=== PATIENT | female | born 1955 | race Caucasian/White ===

== ENCOUNTER 2021-08-07 09:40 | Outpatient (CLI) | payer OTHER, SELFPAY ==
[2021-08-07 11:28] LABS: Basophils Absolute Auto 0.1 K/mm3 (0.0-0.1); Basophils Percent Auto 0.8 % (0.2-1.2); Eosinophils Absolute Auto 0.1 K/mm3 (0-0.3); Eosinophils Percent Auto 1.6 % (0-4.4); Hematocrit 38.3 % (37.0-47.0); Immature Granulocyte Absolute 0.01 K/mm3 (0.00-0.031); Immature Granulocyte Percent A 0.2 % (0-0.5); Lymphocytes Absolute Auto 1.98 K/mm3 (0.9-3.2); Lymphocytes Percent Auto 31.5 % (18.3-44.2); Mean Corpuscular HGB Conc 33.9 g/dl (32-36); Mean Corpuscular Hemoglobin 31.3 pg (26-34); Mean Corpuscular Volume 92.1 fl (80-100); Mean Platelet Volume 9.3 fl (7.4-10.4); Monocytes Absolute Auto 0.7 K/mm3 (0.1-0.6); Monocytes Percent Auto 11.8 % (2.6-8.5); Neutrophils Absolute Auto 3.4 K/mm3 (1.3-6.7); Neutrophils Percent Auto 54.1 % (45.5-73.1); Platelet Count Result 229 k/mm3 (150-375); Red Blood Count 4.16 M/mm3 (4.2-5.4); Red Cell Distribution Width 14.2 % (11.5-14.5); White Blood Count 6.3 K/mm3 (4.5-10.0)
[2021-08-07 11:30] LABS: Add Urine Microscopic? NO; Appearance Urine Clear (Clear); Bilirubin Urine Negative (Negative); Blood Urine Negative (Negative); Color Urine Straw (Yellow); Glucose Urine UA Negative (Negative); Ketones Urine Negative (Negative); Leukocyte Esterase Ur Negative LEU/UL (Negative); Nitrate Urine Negative (Negative); Protein Urine Negative (Negative); Urobilinogen Urine Negative mg/dL (<2.0)
[2021-08-07 11:36] LABS: Specific Grav Ur 1.004 (1.001-1.035)
[2021-08-07 11:46] LABS: Anion Gap 7 mmol/L (8-16); Blood Urea Nitrogen 10 mg/dL (7-17); Calcium 10.1 mg/dL (8.4-10.2); Carbon Dioxide 31 mmol/L (22-30); Chloride 100 mmol/L (98-107); Estimated Glomerular Filt Rate > 60; Glucose 94 mg/dL (65-110); Hemoglobin A1C 5.1 % (<5.7); Potassium 4.1 mmol/L (3.4-5.0); Sodium 138 mmol/L (137-145)
[2021-08-07 11:50] LABS: Partial Thromboplastin Time 35.9 SECONDS (22.3-36.8)
[2021-08-07 11:55] LABS: INR 0.9; Prothrombin Time 12.5 Seconds (11.1-14.7)
[2021-08-07 12:32] LABS: Urine Cotinine NEGATIVE
== END 2021-08-07 09:41 | disposition home or self-care (01) ==
LOC: ANHSURGERY 09:45
PROVIDERS: PCP Emergency Medicine; Visit Provider Orthopaedic Surgery
DX: M16.12 Unilateral primary osteoarthritis, left hip (principal); Z01.818 Encounter for other preprocedural examination
CPT/HCPCS: 80048; 80307; 81003; 82040; 83036; 85025; 85610; 85730; 87081

== ENCOUNTER 2021-08-23 18:52 | Observation (INO) | payer OTHER, SELFPAY ==
[2021-08-07 10:26] VITALS: BP 163/73; PULSE 59; RESP 18; TEMP 36.7; O2SAT 100; BMI 25.2
--- NOTE | 2021-08-21 11:25 | WPDANESEPPF ---
Anes - Initial Pre Proc Eval Procedure: Operation Date: 08/22/21 07:30 Proposed Procedures p Left Total Hip Arthroplasty - Slim Joaquin MD Date/Time: 08/21/21 11:25 Surgeon: Slim Joaquin MD Pre Op Diagnosis: Left hip DJD Patient Data Age: 65 Gender: F Height: 1.56 m Weight: 61.7 kg Last Vital Signs Temp 36.7 C 08/07/21 10:26 Pulse 59 L 08/07/21 10:26 Resp 18 08/07/21 10:26 BP 163/73 H 08/07/21 10:26 Pulse Ox 100 08/07/21 10:26 Allergies Allergy/AdvReac Type Severity Reaction Status Date / Time aspirin AdvReac Intermediate CONTRAINDICATED Verified 08/22/21 06:18 R/T GASTRIC BYPASS ibuprofen AdvReac Intermediate nausea/PT Verified 08/22/21 06:18 STATES SHE GETS NO PAIN RELIEF Home Medications Medication Instructions Recorded Confirmed Type calcium carbonate 600 mg (1,500 1 tablet PO DAILY 06/07/21 08/22/21 History mg)-vitamin D3 400 unit tablet losartan 50 mg tablet 50 mg PO QAM 06/07/21 08/07/21 History xreeubiy-bcjkgkk-cxqf-iron 18 1 tablet PO DAILY 06/07/21 08/22/21 History mg-FA 400 mcg-vit K 25 mcg tablet omega 9-kfa-lns-fish oil 60 mg-90 1 cap PO DAILY 06/07/21 08/22/21 History mg-500 mg capsule chlorhexidine gluconate 4 % 1 applic TOPICAL DAILY #237 ml 06/13/21 08/07/21 Rx topical liquid acetaminophen [Tylenol Extra 500 mg PO Q6H PRN 08/07/21 08/07/21 History Strength] atorvastatin 40 mg PO DAILY 08/07/21 08/07/21 History cyanocobalamin (vitamin B-12) 500 mcg PO DAILY 08/07/21 08/22/21 History hydrocodone-acetaminophen 1 tablet PO BID 08/07/21 08/22/21 History pregabalin 75 mg PO BID 08/07/21 08/22/21 History Patient hx anesthesia problems: none Family hx anesthesia problems: none Results Review: All pre-operative results and documents have been reviewed as part of the pre-operative evaluation. 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 DJD (degenerative joint disease), lumbar History of stroke HTN (hypertension) Hyperlipidemia ERVIN (obstructive sleep apnea) Osteoarthritis Smoking Wears glasses Family History Family History Other Cerebrovascular accident Diabetes mellitus Family history of arthritis Family history of cardiovascular disease Family history of seizure disorder Hypertension Social History Social History Smoking packs per day: 1 Smoking cigarettes per day: 20.0 Years smoked: 50 Smoking pack-years: 50.00 Smoking status: Former smoker Tobacco type: cigarettes Smoking end date: 07/02/21 Alcohol intake: current Drinks per week: 8 Substance use: never Living arrangements: other Additional living arrangements comments: BOYFRIEND Spiritual care concerns: No Anes - Eval Final PreProcedure Day of Procedure 08/21/21 11:25 Patient weight: overweight Heart: regular rate and rhythm Lungs: clear to auscultation and normal air movement Airway: Mallampati scale class II Neurological: alert and oriented Last oral intake: >/= 8 hours ASA classification: III Emergent: no Anesthetic plan: proceed Anesthesia type and monitoring: general ETT Results Review: All pre-operative results and documents have been reviewed as part of the pre-operative evaluation. Informed Consent: The patient's anesthetic plan and its attendant risks and benefits were discussed with the patient/family/POA. Questions were solicited and answers provided to the satisfaction of the patient/family/POA.
[2021-08-22] VITALS (16 sets, daily range): BP systolic 112–150; BP diastolic 48–78; PULSE 40–89; RESP 10–20; TEMP 36.1–36.6; O2SAT 97–100; BMI 25.0
[2021-08-22] MEDS: LACTATED RINGERS 1,000 ML 30 ML IV CONT ×2 (06:55→10:40)
[2021-08-22] MEDS: TRANEXAMIC ACID 1,000MG/ISO100 1,000 MG/100 ML BAG 200 MG IVPB (06:57)
--- NOTE | 2021-08-22 07:25 | SUR.PREOP ---
0725- Notified Dr. Joaquin patient took [place] 7.5-325MG PO Tylenol at 0400, clarified giving 1000MG PO Tylenol in pre-op. Per Dr. Joaquin do not give 1000MG Tylenol, discontinue order.
--- NOTE | 2021-08-22 07:30 | SUR.PREOP ---
0730- Patient and spouse Albert notified procedure start time will be delayed. Patient and Albert verbalized understanding.
--- NOTE | 2021-08-22 07:41 | WPDHPUPDATE1 ---
History and Physical Update Update Date/Time: 08/22/21 07:41 History and Physical has been reviewed, including an updated exam of the patient. There are NO changes in the patient's condition. Risks, benefits, and alternatives have been discussed and questions answered. Patient agrees to proceed with procedure.
[2021-08-22] MEDS: ceFAZolin 2 GM/D5W 50 ML 2 GM/50 ML BAG IVPB ×3 (07:53→23:34)
[2021-08-22] MEDS: TRANEXAMIC ACID 1,000 MG/10 ML AMPUL 1000 MG IV PUSH (09:41)
--- NOTE | 2021-08-22 10:26 | W.PM.PROC2 ---
Procedure Note - Detailed Date of Procedure 08/22/21 Pre-op Diagnosis Left hip DJD Post-op Diagnosis same Procedure Performed L NILA Surgeon Slim Joaquin MD Anesthesia general Description of Procedure THE PATIENT WAS TAKEN TO THE OPERATING ROOM IN STABLE CONDITION AND WAS PLACED IN THE LATERAL DECUBITUS AND THE LEFT LOWER EXTREMITY WAS PREPPED AND DRAPED IN THE STERILE FASHION. INCISION WAS MADE IN THE POSTERIOR LATERAL SIDE OF THE HIP, DOWN TO THE FASCIA LAYER. THE FASCIA WAS INCISED. THE HIP WAS EXPOSED. THE SHORT EXTERNAL ROTATORS WERE EXPOSED. THE SCIATIC NERVE WAS IDENTIFIED AND VISUALIZED THROUGHOUT THE EXPOSURE AND CASE. INCISION WAS MADE THROUGH THE SHORT EXTERNAL ROTATORS AND THE CAPSULE OF THE HIP JOINT. THE HIP WAS DISLOCATED. AN OSTEOTOMY WAS MADE TO THE FEMORAL NECK ABOUT 1 CM PROXIMAL TO THE LESSER TROCHANTER. THE ACETABULUM WAS EXPOSED. THERE WAS SEVERE DJD SEEN. BEGINNING WITH A 44 REAMER THE ACETABULUM WAS REAMED TO 49 MM. A 50 MM TRIAL WAS PLACED IN 35 DEG OF ABDUCTION AND ANTEVERSION WAS IN ALIGNMENT WITH THE TRANS ACETABULAR LIGAMENT. THE FIT WAS EXCELLENT. THE TRIAL WAS REMOVED. A 50 MM BIOMET G7 COMPONENT WAS THEN TAPPED IN TO PLACE IN 35 DEG OF ABDUCTION AND ANTEVERSION IN ALIGNMENT WITH THE TRANSVERSE ACETABULAR LIGAMENT. THE FIT WAS EXCELLENT. THE ACETABULAR LINER WAS PLACED AND CHECKED FOR STABILITY. NEXT THE FEMUR WAS PREPARED WITH INITIAL CANAL FINDER THEN SEQUENTIAL BROACHING WITH A TAPERLOC HIP SYSTEM, UNTIL A 11 BROACH FIT WELL IN 15 OF ANTEVERSION. A -3 HIGH OFFSET NECK WITH 36 MM HEAD TRIAL WAS PLACED. THE SHUCK TEST WAS EXCELLENT AND THE STABILITY IN FLEXION AND ROTATION WAS EXCELLENT. LEG LENGTHS WERE GROSSLY EQUAL. TRIALS WERE REMOVED. A BIOMET TAPERLOC 11 STEM WAS PLACED WITH A HIGH OFFSET NECK THE FIT WAS EXCELLENT IN 15 DEG OF ANTEVERSION. A -3 CERAMIC 36 MM FEMORAL CERAMIC HEAD WAS PLACED. THE HIP WAS TRIALED AND THE STABILITY WAS EXCELLENT WERE THE LEG LENGTHS AND THE SHUCK TEST. THE WOUND WAS IRRIGATED WITH STERILE BETADINE AND WATER FOR 3 MIN. THEN WASHED AGAIN. THE CAPSULE AND THE EXTERNAL ROTATORS WERE APPROXIMATED WITH NUMBER 1 VICRYL. THE FASCIA WITH No 2 QUIL AND THE SUB CUTANEOUS LAYER WITH 2-0 ABSORBABLE SUTURE WITH A RUNNING 3-0 SUBCUTICULAR LAYER WELL. DERMABOND WAS PLACED AND STERILE DRESSING WAS APPLIED. PATIENT WAS PLACED BACK ON TO THE SUPINE POSITION AND WAS EXTUBATED Estimated Blood Loss 450 Complications No immediate complications Condition stable Disposition PACU
[2021-08-22] MEDS: fentaNYL CITRATE INJ (*CRX) 100 MCG/2 ML VIAL 25 MCG IV PUSH ×4 (11:09→11:27)
--- NOTE | 2021-08-22 11:50 | WPDANESPNB ---
Anes - Peripheral Nerve Block Date/Time: 08/22/21 11:50 I have discussed with the patient/family/POA the placement of a peripheral nerve block for post-operative pain management, including associated risks, benefits, complications, and side effects. Alternative methods of post-operative analgesia were detailed. Questions were solicited and answers provided to the satisfaction of the patient/family/POA. Time-Out: A pre-procedural Time-Out was completed immediately before starting the procedure and confirmed: Patient Identification, Site, Procedure, Patient Position and the Availability of Requisite Equipment. Clinical Indications: Acute post-operative pain management requested by the operative surgeon. Nerve Block Insertion Note Anes-nerve block: other (left L4 sade block) Patient position: supine Skin prep: chlorhexidine Needle: 22 gauge, stimulating, insulated echogenic needle. Needle length: 80 mm Technique: ultrasound Technique comment: in plane Injectate: bupivacaine 0.25% with epi 5 mcg/ml (30cc) Observations: tolerated well Complications: none Procedure start time:: 1140 Procedure end time:: 1145
--- NOTE | 2021-08-22 12:50 | PHAR ---
Spoke with Dr. Joaquin - suggested changing ASA 650mg daily to 81mg BID due to history of gastric bypass surgery. Also discussed changing Pepcid to Protonix for increased GI protection. Provider approved changes
[2021-08-22] MEDS: MORPHINE SULFATE (*CRX) 4 MG/ML INJ 3 MG IV PUSH ×3 (14:49→23:30)
[2021-08-22] MEDS: PANTOPRAZOLE 40 MG TABLET PO (18:41)
[2021-08-22] MEDS: ASPIRIN 81 MG ENTERIC TABLET PO (18:42)
[2021-08-22] MEDS: PREGABALIN (*CRX) 75 MG CAPSULE PO (18:43)
[2021-08-22] MEDS: HYDROcodone/acetaminophen (*CRX) 7.5-325 MG TABLET 1 TAB PO (20:55)
[2021-08-22] MEDS: DOCUSATE SODIUM 100 MG CAPSULE PO (21:31)
[2021-08-22] MEDS: NALOXONE HCL 0.4 MG/ML VIAL 0.1 MG IV PUSH (23:57)
[2021-08-23] VITALS (11 sets, daily range): BP systolic 96–127; BP diastolic 40–60; PULSE 63–83; RESP 12–20; TEMP 36.1–36.9; O2SAT 97–100
--- NOTE | ~2021-08-23 | XR_ITS ---
EXAMINATION: XR hip LT 1V DATE: 08/22/2021 10:56 INDICATION: Total left hip arthroplasty. Postop. TECHNIQUE: A single view of left hip was obtained. COMPARISON: Pelvis and hip radiographs 06/07/2021 FINDINGS: There is a total left hip arthroplasty in near-anatomic alignment. No fracture. There is ga s in the soft tissues, consistent with recent surgery. IMPRESSION: 1. Total left hip arthroplasty in near-anatomic alignment. Reviewed, dictated and finalized at location A.
--- NOTE | 2021-08-23 00:10 | PC.NURSE ---
pt given morphine 2330, requested bathroom 15 minutes later. Pt ambulated to bathroom w/o difficulty, when standing from toilet pt became dizzy and weak and sat back on the toilet, pt attempted to stand after resting a couple of minutes and became dizzy again and experienced a near syncopal episode but did not lose consciousness. when returned pt to bed using peter steady pt lost consciousness at bedside. pt was responsive moments later and put back in bed. Narcan given when pt returned to bed. BP 96/40 HR 68 post narcan infusion, pt more alert at this time.
[2021-08-23] MEDS: HYDROcodone/acetaminophen (*CRX) 7.5-325 MG TABLET 1 TAB PO ×4 (01:13→21:39)
--- NOTE | 2021-08-23 04:28 | PC.NURSE ---
Addendum entered by Esau Arevalo RN 08/23/21 05:44: Pt sleeping at time of pain reassessment, will check BP if pt requests additional pain med or at next vitals interval Original Note: Pt c/o pain about 5 , current BP 97/52. Pt educated on safe narcotic use and states she would like to wait a little bit and recheck BP before taking PRN norco. Pt requests Tylenol, will recheck BP at 1 hour pain reassessment.
[2021-08-23] MEDS: ACETAMINOPHEN 325 MG TABLET 650 MG PO (04:32)
[2021-08-23 05:14] LABS: Basophils Percent Auto 0.6 % (0.2-1.2); Eosinophils Percent Auto 0.4 % (0-4.4); Hematocrit 24.9 % (37.0-47.0); Hemoglobin 8.2 g/dL (12.0-15.0); Immature Granulocyte Absolute 0.02 K/mm3 (0.00-0.031); Immature Granulocyte Percent A 0.3 % (0-0.5); Lymphocytes Absolute Auto 1.66 K/mm3 (0.9-3.2); Lymphocytes Percent Auto 23.3 % (18.3-44.2); Mean Corpuscular HGB Conc 32.9 g/dl (32-36); Mean Corpuscular Hemoglobin 31.7 pg (26-34); Mean Corpuscular Volume 96.1 fl (80-100); Mean Platelet Volume 10.1 fl (7.4-10.4); Monocytes Absolute Auto 0.9 K/mm3 (0.1-0.6); Monocytes Percent Auto 13.1 % (2.6-8.5); Neutrophils Absolute Auto 4.4 K/mm3 (1.3-6.7); Neutrophils Percent Auto 62.3 % (45.5-73.1); Platelet Count Result 156 k/mm3 (150-375); Red Blood Count 2.59 M/mm3 (4.2-5.4); Red Cell Distribution Width 14.2 % (11.5-14.5); White Blood Count 7.1 K/mm3 (4.5-10.0)
[2021-08-23 05:22] LABS: Anion Gap 3 mmol/L (8-16); Blood Urea Nitrogen 11 mg/dL (7-17); Calcium 8.8 mg/dL (8.4-10.2); Carbon Dioxide 30 mmol/L (22-30); Chloride 97 mmol/L (98-107); Estimated CRCL calculation 73 ml/min; Estimated Glomerular Filt Rate > 60; Glucose 89 mg/dL (65-110); Potassium 3.8 mmol/L (3.4-5.0); Sodium 130 mmol/L (137-145)
[2021-08-23] MEDS: THERAPEUTIC MULTIVITAMINS/MINERALS TAB (*BKC) 1 TABLET PO (08:52)
[2021-08-23] MEDS: CELECOXIB 200 MG CAPSULE PO (08:52)
[2021-08-23] MEDS: ASPIRIN 81 MG ENTERIC TABLET PO ×2 (08:52→16:30)
[2021-08-23] MEDS: CYANOCOBALAMIN 500 MCG TABLET PO (08:52)
[2021-08-23] MEDS: ceFAZolin 2 GM/D5W 50 ML 2 GM/50 ML BAG IVPB (08:52)
[2021-08-23] MEDS: ATORVASTATIN 40 MG TABLET PO (08:52)
[2021-08-23] MEDS: DOCUSATE SODIUM 100 MG CAPSULE PO ×2 (08:52→20:58)
[2021-08-23] MEDS: PREGABALIN (*CRX) 75 MG CAPSULE PO ×2 (08:59→16:30)
[2021-08-23] MEDS: PANTOPRAZOLE 40 MG TABLET PO (09:42)
--- NOTE | 2021-08-23 12:47 | PM.PNORT ---
Progress Note: A&P Assessment and Plan (1) S/P total hip arthroplasty: Qualifiers: Laterality: left Qualified Code(s): Z96.642 - Presence of left artificial hip joint Code(s): Z96.649 - Presence of unspecified artificial hip joint Status: Acute Assessment and Plan: POD #1: Left NILA Continue PT/OT. WBAT. Walker. HIGH FALL RISK. Contine pain control. Ice lateral hip. DVT prophylaxis. SCDs. Incentive spirometry. Monitor dressing. Change prior to discharge. Dispo: Home with Home Health pending progress with PT/OT. Subjective Subjective Date/Time Seen: 08/23/21 12:47 Post Op day: 1 Principal diagnosis: Left Hip DJD Interval history: POD #1: Left NILA Slow progress with PT/OT. Moderate pain. Review of Systems Constitutional: Constitutional: Denies chills, Denies fatigue, Denies fever(s), Denies night sweats and Denies weakness Cardiovascular: Cardiovascular: Denies chest pain, Denies lightheadedness, Denies palpitations and Denies dyspnea Respiratory: Respiratory: Denies cough, Denies dyspnea and Denies wheezing Gastrointestinal: Gastrointestinal: Denies abdominal pain, Denies diarrhea, Denies nausea and Denies vomiting Musculoskeletal: Musculoskeletal: Reports arthralgias (left hip ), Reports joint swelling (left hip ) and Denies numbness Neurologic: Denies numbness and Denies weakness Endocrine: Endocrine: Denies fatigue and Denies palpitations Allergic/Immunologic: Allergic/Immunologic: Denies wheezing Exam Const: General: comfortable and no acute distress Resp: Effort & Inspection: normal respiratory effort Cardio: Rate: regular rate Rhythm: regular rhythm GI: Inspection: non-distended Skin: General skin exam: normal color Wounds: wounds noted (incision left hip C/D/I ) Extrem: Right lower extremity: normal to inspection, full ROM and normal capillary refill Left lower extremity: hip/thigh Details: tenderness Location: of the hip Location: laterally and anteriorly, swelling (thigh soft ) Location: of the hip (lateral. ), abnormal ROM (limitations with internal/external rotation and flexion/extension due to recent surgical intervention ) and other (incision lateral hip c/d/i. ), knee Details: normal to inspection and normal ROM; no tenderness and no swelling, lower leg (Negative Gustavo's Sign ) Details: no edema, ankle (+ ankle plantarflexion/inversion. Weakness with eversion/dorsiflexion. ) Details: normal to inspection, no edema and normal ROM; no tenderness, no swelling and no warmth and foot Details: normal capillary refill, toes with normal ROM, vascular exam Details: dorsalis pedis pulse present and motor-sensory exam light-touch normal in all toes; no tenderness, no ecchymosis and no crepitus Psych: Mental Status: mental status grossly normal Affect: normal affect Objective Data Vital Signs Vital Signs: Vital Signs - 24 hr 08/22/21 13:00 08/22/21 14:00 08/22/21 16:21 Temperature 36.2 C L 36.6 C Pulse Rate 62 88 Respiratory Rate 16 16 Blood Pressure 138/67 127/71 Pulse Oximetry 100 100 98 08/22/21 18:06 08/22/21 20:58 08/23/21 00:17 Temperature 36.4 C L 36.6 C 36.1 C L Pulse Rate 64 69 63 Respiratory Rate 18 20 20 Blood Pressure 145/68 H 121/48 L 96/40 L Pulse Oximetry 100 100 97 08/23/21 01:12 08/23/21 02:01 08/23/21 02:13 Temperature 36.6 C 36.7 C Pulse Rate 76 77 Respiratory Rate 20 20 12 Blood Pressure 104/60 98/52 L Pulse Oximetry 100 100 08/23/21 04:27 08/23/21 08:56 08/23/21 10:45 Temperature 36.5 C 36.9 C Pulse Rate 74 83 74 Respiratory Rate 20 16 Blood Pressure 97/52 L 110/50 L 108/48 L Pulse Oximetry 98 97 99 Intake/Output Intake/Output: Intake & Output 08/20/21 08/21/21 08/22/21 08/23/21 23:59 23:59 23:59 23:59 Intake Total 1770 630 Output Total 1000 600 Balance 770 30 Meds/Results Medications: Active Medications Generic Name Dose Route Start Last Admin Trade Name Freq PRN Reaso
[2021-08-24] MEDS: HYDROcodone/acetaminophen (*CRX) 7.5-325 MG TABLET 1 TAB PO ×3 (02:42→21:35)
[2021-08-24 04:13] VITALS: BP 118/51; PULSE 60; RESP 16; TEMP 36.7; O2SAT 96
[2021-08-24 05:32] LABS: Hematocrit 26.2 % (37.0-47.0); Hemoglobin 8.6 g/dL (12.0-15.0); Mean Corpuscular HGB Conc 32.8 g/dl (32-36); Mean Corpuscular Hemoglobin 31.7 pg (26-34); Mean Corpuscular Volume 96.7 fl (80-100); Mean Platelet Volume 10.2 fl (7.4-10.4); Platelet Count Result 172 k/mm3 (150-375); Red Blood Count 2.71 M/mm3 (4.2-5.4); Red Cell Distribution Width 14.3 % (11.5-14.5)
[2021-08-24 05:57] LABS: Blood Urea Nitrogen 8 mg/dL (7-17); Calcium 9.3 mg/dL (8.4-10.2); Carbon Dioxide 29 mmol/L (22-30); Chloride 102 mmol/L (98-107); Estimated CRCL calculation 89 ml/min; Estimated Glomerular Filt Rate > 60; Glucose 92 mg/dL (65-110)
[2021-08-24 06:14] VITALS: BP 110/42; PULSE 86; RESP 16; TEMP 37.3; O2SAT 99
[2021-08-24 07:07] LABS: Anion Gap 4 mmol/L (8-16); Potassium 4.6 mmol/L (3.4-5.0); Sodium 135 mmol/L (137-145)
--- NOTE | 2021-08-24 08:28 | PM.PNORT ---
Progress Note: A&P Assessment and Plan (1) S/P total hip arthroplasty: Qualifiers: Laterality: left Qualified Code(s): Z96.642 - Presence of left artificial hip joint Code(s): Z96.649 - Presence of unspecified artificial hip joint Status: Acute Assessment and Plan: POD #2: Left NILA Continue PT/OT. WBAT. Walker. HIGH FALL RISK. Contine pain control. Ice lateral hip. DVT prophylaxis. SCDs. Incentive spirometry. Monitor dressing. Change prior to discharge. Dispo: Home with Home Health pending progress with PT/OT and medical clearance. (2) Increased urine output: Code(s): R35.89 - Other polyuria Status: Acute Assessment and Plan: Patient with increased urine output over the last 24 hours. 8,900 mL output vs 3,240.00 mL intake over the 24 hour period. Hospitalist consult and labs this AM. Appreciate recommendations. Subjective Subjective Date/Time Seen: 08/24/21 08:28 Post Op day: 2 Interval history: POD #2: Left NILA Improvement with PT/OT. Increased urine output overnight. Hospitalist service consulted. Pain control improved. Review of Systems Constitutional: Constitutional: Denies chills, Denies fatigue, Denies fever(s), Denies night sweats and Denies weakness Cardiovascular: Cardiovascular: Denies chest pain, Denies lightheadedness, Denies palpitations and Denies dyspnea Respiratory: Respiratory: Denies cough, Denies dyspnea and Denies wheezing Gastrointestinal: Gastrointestinal: Denies abdominal pain, Denies diarrhea, Denies nausea and Denies vomiting Genitourinary: Genitourinary: Reports as per HPI and Reports nocturia Musculoskeletal: Musculoskeletal: Reports arthralgias (left hip ), Reports joint swelling (left hip ) and Denies numbness Neurologic: Denies numbness and Denies weakness Endocrine: Endocrine: Denies fatigue and Denies palpitations Allergic/Immunologic: Allergic/Immunologic: Denies wheezing Exam Const: General: comfortable and no acute distress Resp: Effort & Inspection: normal respiratory effort Cardio: Rate: regular rate GI: Inspection: non-distended GI Palp: Yes Soft to palpation and No Tenderness to palpation present (GI) Skin: General skin exam: normal color Wounds: wounds noted (incision left hip C/D/I ) Extrem: Left lower extremity: hip/thigh Details: tenderness Location: of the hip Location: laterally and anteriorly, swelling (thigh soft ) Location: of the hip (lateral. ), abnormal ROM (limitations with internal/external rotation and flexion/extension due to recent surgical intervention ), ecchymosis (Lateral surrounding incision, no evidence of hematoma. ) and other (incision lateral hip c/d/i. ), knee Details: normal to inspection and normal ROM; no tenderness and no swelling, lower leg (Negative Gustavo's Sign ) Details: no edema, ankle (+ ankle plantarflexion/inversion. Weakness with eversion/dorsiflexion. ) Details: normal to inspection, no edema and normal ROM; no tenderness, no swelling and no warmth and foot Details: normal capillary refill, toes with normal ROM, vascular exam Details: dorsalis pedis pulse present and motor-sensory exam light-touch normal in all toes; no tenderness, no ecchymosis and no crepitus Psych: Mental Status: mental status grossly normal Affect: normal affect Objective Data Vital Signs Vital Signs: Vital Signs - 24 hr 08/23/21 08:56 08/23/21 10:45 08/23/21 13:55 Temperature 36.9 C 36.6 C Pulse Rate 83 74 70 Respiratory Rate 16 16 Blood Pressure 110/50 L 108/48 L 123/59 L Pulse Oximetry 97 99 100 08/23/21 18:03 08/23/21 20:18 08/23/21 21:15 Temperature 36.9 C 36.9 C Pulse Rate 69 70 71 Respiratory Rate 16 16 16 Blood Pressure 115/50 L 127/46 L Pulse Oximetry 100 98 98 08/24/21 04:13 08/24/21 06:14 Temperature 36.7 C 37.3 C Pulse Rate 60 86 Respiratory Rate 16 16 Blood Pressure 118/51 L 110/42 L Pulse Oximetry 96 99 Intake/Output Intake/Output: Intake & Outpu
[2021-08-24] MEDS: PANTOPRAZOLE 40 MG TABLET PO (09:31)
[2021-08-24] MEDS: PREGABALIN (*CRX) 75 MG CAPSULE PO ×2 (09:31→17:50)
[2021-08-24] MEDS: CELECOXIB 200 MG CAPSULE PO (09:31)
[2021-08-24] MEDS: CYANOCOBALAMIN 500 MCG TABLET PO (09:31)
[2021-08-24] MEDS: LOSARTAN POTASSIUM 50 MG TABLET PO (09:31)
[2021-08-24] MEDS: ATORVASTATIN 40 MG TABLET PO (09:31)
[2021-08-24] MEDS: THERAPEUTIC MULTIVITAMINS/MINERALS TAB (*BKC) 1 TABLET PO (09:32)
[2021-08-24] MEDS: DOCUSATE SODIUM 100 MG CAPSULE PO ×2 (09:32→21:34)
[2021-08-24] MEDS: ASPIRIN 81 MG ENTERIC TABLET PO ×2 (09:32→17:50)
[2021-08-24 11:41] LABS: Add Urine Microscopic? YES; Appearance Urine Cloudy (Clear); Bilirubin Urine Negative (Negative); Blood Urine Negative (Negative); Color Urine Yellow (Yellow); Glucose Urine UA Negative (Negative); Ketones Urine Negative (Negative); Leukocyte Esterase Ur Negative LEU/UL (Negative); Mucus Urine Rare /lpf; Nitrate Urine Negative (Negative); Protein Urine Negative (Negative); RBC Urine 0-2 /hpf (0-2); Specific Grav Ur 1.009 (1.001-1.035); Squamous Epithelial Cell Urine Few /hpf (Few); WBC Urine 0-3 /hpf
--- NOTE | 2021-08-24 12:42 | PM.IMCN ---
Assessment and Plan Assessment and plan (1) Increased urine output: Code(s): R35.89 - Other polyuria Status: Acute Assessment and Plan: The cause could be secondary to reaction to anesthesia, there has been some study showing that sevoflurane anesthesia could cause Diabetes Insipitus after use vs Diabetes insiptius but the patient does not have any of the symptoms that is usually associated with this condition as well as stable sodium and other electrolytes as well as blood pressure given a 9 liter volume loss vs UTI and her Urinalysis is unremarkable vs fluid overload or increased fluid intake during surgery and PO intake. Will check urine electrolytes Sodium, Osmolality and Creatinine Recheck BMP in the morning and electrolytes Will monitor BP Strict Intake and Output for accuracy Continue monitoring. Currently she appears to be stable without any concerns or issues. (2) S/P total hip arthroplasty: Qualifiers: Laterality: left Qualified Code(s): Z96.642 - Presence of left artificial hip joint Code(s): Z96.649 - Presence of unspecified artificial hip joint Status: Acute Assessment and Plan: Post OP day #2, per Ortho (3) HTN (hypertension): Code(s): I10 - Essential (primary) hypertension Status: Acute Assessment and Plan: BP stable 110/42. Continue on her home Losartan. (4) Hyperlipidemia: Code(s): E78.5 - Hyperlipidemia, unspecified Status: Acute Assessment and Plan: Continue statin (5) Abnormal urinalysis: Code(s): R82.90 - Unspecified abnormal findings in urine Status: Acute Assessment and Plan: with 4 Urobilinogen. Will check LFTs. Shows history of fatty liver disease. patient states she drinks 4-6 beers once per week. Denies history of cirrhosis or other liver issues. Continue monitoring HPI Data of Consult Consult date: 08/24/21 Requesting Physician: Slim Joaquin MD Primary Care Provider: Rene Osborne MD Consult Narrative Narrative: Gayathri Kim is a 65 year old female with a history of gastric bypass surgery, hypertension, hyperlipidemia, fatty liver disease, who presented who was admitted after having her left total hip arthroplasty completed by Dr. Joaquin on 08/22/2021. The patient tolerated procedure well and was brought up to the floor for recovery. The nursing staff had been collecting her urine and notice she was peeing more frequently and in large quantities. They have recorded her urine output as a 1950 cc of urine in the last 24 hours. I received a consultation from the training development specialist for frequent urination. She states she is only having some minimal discomfort to her hip and becomes worse after working with therapy. She has hopes to be going home to continue therapy. The patient states she has been urinating more than normal. She denies any other urinary symptoms of dysuria, odor to her urine, dark urine, difficulty urinating, or the feeling of not emptying her bladder. She denies any nausea, vomiting, abdominal distention, bloating. She does not have any increased thirst, denies drinking excessive water, taking any diuretic pills, fatigue, weakness, dry mouth, bedwetting, feeling dehydrated, lightheadedness, dizziness, confusion, or any other symptoms. She denies any chest pain, shortness of breath, cough, leg swelling, calf pain, or any other symptoms at this time. 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
[2021-08-24 14:00] VITALS: BP 102/56; PULSE 85; RESP 16; TEMP 36.2; O2SAT 97
[2021-08-24 15:00] LABS: Alanine Aminotransferase 18 U/L (4-35); Albumin Level 3.2 g/dL (3.5-5.1); Alkaline Phosphatase 60 U/L (38-126); Aspartate Amino Transferase 38 U/L (14-36); Bilirubin,Total 0.3 mg/dL (0.2-1.3)
[2021-08-24 15:49] LABS: Sodium Urine Random 17 meq/L
[2021-08-24 19:53] VITALS: PULSE 74; RESP 16; O2SAT 97
[2021-08-24 21:18] VITALS: BP 115/41; PULSE 78; RESP 16; TEMP 36.6; O2SAT 97
[2021-08-25 05:34] VITALS: BP 111/49; PULSE 65; RESP 16; TEMP 36.7; O2SAT 100
[2021-08-25] MEDS: HYDROcodone/acetaminophen (*CRX) 7.5-325 MG TABLET 1 TAB PO ×2 (05:35→10:05)
[2021-08-25 05:41] LABS: Hematocrit 25.9 % (37.0-47.0); Hemoglobin 8.3 g/dL (12.0-15.0)
[2021-08-25 06:12] LABS: Alanine Aminotransferase 17 U/L (4-35); Albumin Level 3.3 g/dL (3.5-5.1); Alkaline Phosphatase 70 U/L (38-126); Anion Gap 4 mmol/L (8-16); Aspartate Amino Transferase 41 U/L (14-36); Bilirubin,Total 0.5 mg/dL (0.2-1.3); Blood Urea Nitrogen 7 mg/dL (7-17); Calcium 8.8 mg/dL (8.4-10.2); Carbon Dioxide 29 mmol/L (22-30); Chloride 103 mmol/L (98-107); Estimated CRCL calculation 89 ml/min; Estimated Glomerular Filt Rate > 60; Glucose 92 mg/dL (65-110); Potassium 3.7 mmol/L (3.4-5.0); Sodium 136 mmol/L (137-145)
[2021-08-25] MEDS: PANTOPRAZOLE 40 MG TABLET PO (08:02)
[2021-08-25] MEDS: THERAPEUTIC MULTIVITAMINS/MINERALS TAB (*BKC) 1 TABLET PO (08:02)
[2021-08-25] MEDS: LOSARTAN POTASSIUM 50 MG TABLET PO (08:02)
[2021-08-25] MEDS: CELECOXIB 200 MG CAPSULE PO (08:02)
[2021-08-25] MEDS: CYANOCOBALAMIN 500 MCG TABLET PO (08:02)
[2021-08-25] MEDS: PREGABALIN (*CRX) 75 MG CAPSULE PO (08:03)
[2021-08-25] MEDS: ATORVASTATIN 40 MG TABLET PO (08:03)
[2021-08-25] MEDS: ASPIRIN 81 MG ENTERIC TABLET PO (08:03)
[2021-08-25] MEDS: DOCUSATE SODIUM 100 MG CAPSULE PO (08:05)
--- NOTE | 2021-08-25 09:35 | PM.IMPN ---
Progress Note: A&P Assessment and Plan (1) Increased urine output: Code(s): R35.89 - Other polyuria Status: Acute Assessment and Plan: The cause could be secondary to reaction to anesthesia, there has been some study showing that sevoflurane anesthesia could cause Diabetes Insipidus after use vs Diabetes insipidus but the patient does not have any of the symptoms that is usually associated with this condition as well as stable sodium and other electrolytes as well as blood pressure given a 9 liter volume loss vs UTI and her Urinalysis is unremarkable vs fluid overload or increased fluid intake during surgery and PO intake. Urine electrolytes Sodium 17, Osmolality pending and Creatinine 61. Serum Sodium was 136, improved from yesterday and other electromytes and renal function normal BP otherwise stable. She is feeling well at this time, and reports normal urination today. believe this could have been secondary to anesthesia reaction vs miscalculation. If she has any further issues she will need to follow up with her PCP in 1 week. She understands and agrees with the plan. All questions answered. (2) S/P total hip arthroplasty: Qualifiers: Laterality: left Qualified Code(s): Z96.642 - Presence of left artificial hip joint Code(s): Z96.649 - Presence of unspecified artificial hip joint Status: Acute Assessment and Plan: Post OP day #3, per Ortho (3) HTN (hypertension): Code(s): I10 - Essential (primary) hypertension Status: Acute Assessment and Plan: BP stable 111/49 Continue on her home Losartan. (4) Hyperlipidemia: Code(s): E78.5 - Hyperlipidemia, unspecified Status: Acute Assessment and Plan: Continue statin (5) Abnormal urinalysis: Code(s): R82.90 - Unspecified abnormal findings in urine Status: Acute Assessment and Plan: with 4 Urobilinogen. Shows history of fatty liver disease. patient states she drinks 4-6 beers once per week. Denies history of cirrhosis or other liver issues. LFTs are normal other than slight elevated of AST 41. Stable. No signs of infection. Follow up with PCP due to Urobilinogen in urine Time Spent With Patient Time with patient: 25 - 35 minutes Subjective Date/time seen: 08/25/21 09:35 Interval history: Date of Service 08/25/21: The patient states she is feeling well. States her urination is back to normal today. She denies any other urinary symptoms. She is just having some pain after walking with therapy. She otherwise denies chest pain, SOB, cough, fever, chills, nausea, vomiting, abd pain or any other symptoms at this time. Review of Systems Review of Systems: All systems reviewed & are unremarkable except as noted in HPI and below Exam Narrative: General: 65-year-old woman sitting up in the chair after walking with therapy. Appears comfortable. In no acute distress. Skin: No jaundice or cyanosis. Good skin turgor. Neck: Full range of motion. Supple. Respiratory: Lungs are clear to auscultation bilaterally. No bony chest wall tenderness. Cardiovascular: The heart has a regular rate and rhythm without murmur. Gastrointestinal: The abdomen is soft, nontender and nondistended with active bowel sounds. Psychiatric: Lucid and oriented. Memory intact. Neurologic: No focal deficits. Speech is clear. No facial drooping. Objective Data Vital Signs Vital Signs: Vital Signs - 24 hr 08/24/21 14:00 08/24/21 19:53 08/24/21 21:18 Temperature 97.2 F L 97.8 F Pulse Rate 85 74 78 Respiratory Rate 16 16 16 Blood Pressure 102/56 L 115/41 L Pulse Oximetry 97 97 97 08/25/21 05:34 Temperature 98.1 F Pulse Rate 65 Respiratory Rate 16 Blood Pressure 111/49 L Pulse Oximetry 100 Intake/Output Intake/Output: Intake & Output 08/22/21 08/23/21 08/24/21 08/25/21 23:59 23:59 23:59 23:59 Intake Total 1770 2360 4100 1720 Output Total 1000
[2021-08-28 03:55] LABS: Osmolality, Urine 231 mOsm/kg (50-1200)
--- NOTE | 2021-09-13 13:26 | PM.DS ---
DS: Admitting Diagnosis Discharge Date 08/25/21 Admitting Diagnosis Left total hip arthroplasty DS: Discharge Diagnosis Discharge Diagnosis (1) S/P total hip arthroplasty: Qualifiers: Laterality: left Qualified Code(s): Z96.642 - Presence of left artificial hip joint Code(s): Z96.649 - Presence of unspecified artificial hip joint Status: Acute Assessment and Plan: POD #3: Left NILA Continue PT/OT. WBAT. Walker. HIGH FALL RISK. Contine pain control. Ice lateral hip. DVT prophylaxis. SCDs. Incentive spirometry. Monitor dressing. Change prior to discharge. Dispo: Home with Home Health pending progress with PT/OT and medical clearance. (2) Increased urine output: Code(s): R35.89 - Other polyuria Status: Acute Assessment and Plan: Patient had excessive amount of urine output on postop day 1. Hospitalist service consulted. The cause is thought to be secondary to reaction to anesthesia. The patient has no symptoms of diabetes insipidus. Her sodium levels remain stable as well as other electrolytes and her blood pressure is stable despite a reported 9 liter volume loss. Her sodium is 136 today. BP has remained stable. Patient reported normalization of urination. Hospitalist service believes this could been secondary to anesthesia reaction verses a miscalculation from nursing staff. She was instructed to follow-up with her PCP in 1 week. DS: Summary Hospital Course Reason for hospitalization: left total hip arthroplasty Hospital Course: 65-year-old female was admitted status post left total hip arthroplasty for postoperative medical management, pain control and mobilization with physical and occupational therapy. Patient had an incidence of increased urine output postoperatively. She had an over 9 L volume output reported. The hospitalist service was consulted for guidance with treatment. Her creatinine, sodium and blood pressures remained stable. On postop day 3 it was believed that the extreme output could be related to any anesthesia reaction versus miscalculations. In regard to pain, the patient progressed well. Her pain was well controlled. She did well with ambulation with a walker. She was put on anticoagulation for DVT prophylaxis prior to discharge. She was deemed safe to be discharged home with home health. She was instructed by the hospitalist service to follow with her primary care provider in 1 week due to urine output complaints while inpatient. Status at Discharge Functional status at discharge: uses cane/walker Overall status at discharge: patient is progressing back to baseline Time Spent with Patient Time attestation: Total time spent providing and/or coordinating discharge services: Exam Const: General: comfortable and no acute distress Resp: Effort & Inspection: normal respiratory effort Cardio: Rate: regular rate GI: Inspection: non-distended GI Palp: Yes Soft to palpation and No Tenderness to palpation present (GI) Skin: General skin exam: normal color Wounds: wounds noted (incision left hip C/D/I ) Extrem: Left lower extremity: hip/thigh Details: tenderness Location: of the hip Location: laterally and anteriorly, swelling (thigh soft ) Location: of the hip (lateral. ), abnormal ROM (limitations with internal/external rotation and flexion/extension due to recent surgical intervention ), ecchymosis (Lateral surrounding incision, no evidence of hematoma. ) and other (incision lateral hip c/d/i. ), knee Details: normal to inspection and normal ROM; no tenderness and no swelling, lower leg (Negative Gustavo's Sign ) Details: no edema, ankle (+ ankle plantarflexion/inversion. Weakness with eversion/dorsiflexion. ) Details: normal to inspection, no edema and normal ROM; no tenderness, no swelling and no warmth and foot Details: normal capillary refill, toes with normal ROM, vascular exam Details: dorsalis pedis pulse present and motor-sensory exam lig
== END 2021-08-25 14:58 | disposition home health service (06) ==
LOC: ANHSURGERY 19:03 → ANH2MED 19:03
PROVIDERS: Orthopaedic Surgery; Physician Assistant; Admitting Provider Orthopaedic Surgery; PCP Emergency Medicine; Visit Provider Orthopaedic Surgery
PROC: (CPT 27130; principal; 2021-08-22 07:30)
DX: M16.12 Unilateral primary osteoarthritis, left hip (principal); R35.89 Other polyuria; E78.5 Hyperlipidemia, unspecified; G47.33 Obstructive sleep apnea (adult) (pediatric); G89.18 Other acute postprocedural pain; I10 Essential (primary) hypertension; K76.0 Fatty (change of) liver, not elsewhere classified; Z98.84 Bariatric surgery status; Z87.891 Personal history of nicotine dependence
CPT/HCPCS: 27130; 64461; 36415; 73501; 80048; 80053; 80076; 81001; 82570; 83935; 84300; 85014; 85018; 85025; 85027; 86850; 86900; 86901; 97110; 97116; 97161; 97165; 97530; 97535; A9270; C1776; G0378; J0171; J0690; J1100; J1170; J1885; J2250; J2270; J2310; J2405; J2704; J2710; J2795; J3010; J7120

== ENCOUNTER → 2022-01-29 14:47 | Outpatient (CLI) | payer MEDICARE, OTHER, SELFPAY ==
--- NOTE | ~2022-01-29 | MR_ITS ---
EXAMINATION: MR shoulder LT wo con DATE: 01/29/2022 16:01 INDICATION: Left shoulder pain TECHNIQUE: Magnetic resonance imaging (MRI) of the left shoulder was performed without intravenous co ntrast. Sequences included axial PD-weighted FS FSE, coronal oblique PD-weighted FS FSE, coronal obli que T2-weighted FS FSE, sagittal PD-weighted FS FSE, and sagittal T1-weighted SE. COMPARISON: Radiographs dated 01/18/2022 FINDINGS: Evaluation mildly limited by small amount of motion blurring on multiple sequences. Coracoacromial arch: The acromion undersurface is curved in morphology (type II). The coracoacromial ligament is normal. M inimal acromioclavicular osteoarthritis. Rotator cuff: Mild supraspinatus and infraspinatus tendinopathy. There is marked attenuation of the distal 1.5 cm t he tendon consistent with a near full-thickness articular sided tear of the supraspinatus and anterio r third of the infraspinatus tendon. The teres minor tendon is normal. The subscapularis tendon is no rmal. Normal rotator cuff muscle bulk and signal. Biceps tendon, glenoid labrum and glenohumeral cartilage: Long head of the biceps tendon is normal. There is a smaller accessory head of the long head biceps t endon which appears to fuse with the capsule and biceps fox sling at the level of the cephalad asp ect of the intertubercular groove. Small marginal osteophytes along the inferior and posterior inferi or glenoid. Posterior labral tear with small shallow cleft at the chondral labral junction at the 9:0 0 position. Glenohumeral cartilage is normal. Fluid: Physiologic amount of fluid in the glenohumeral joint and biceps tendon sheath. No loose osteochondr al bodies. Small amount of fluid in the subacromial/subdeltoid bursa consistent with mild bursitis. Bones: Normal marrow signal with no edema, fracture or abnormal marrow replacing process. Mild cystic change at the posterior facet of the greater tuberosity. IMPRESSION: 1. Mild supraspinatus and infraspinatus tendinopathy with near full-thickness articular sided tear of the distal supraspinatus and anterior third of the infraspinatus tendons. 2. Mild glenohumeral osteoarthritis with small shallow tear at the base of the posterior labrum. 3. Mild subacromial/subdeltoid bursitis. Reviewed, dictated and finalized at location B. IMPRESSION: 1. Mild supraspinatus and infraspinatus tendinopathy with near full-thickness a rticular sided tear of the distal supraspinatus and anterior third of the infra spinatus tendons. 2. Mild glenohumeral osteoarthritis with small shallow tear at the base of the posterior labrum. 3. Mild subacromial/subdeltoid bursitis.
== END ==
PROVIDERS: Visit Provider Orthopaedic Surgery
DX: M19.012 Primary osteoarthritis, left shoulder (principal); M75.102 Unspecified rotator cuff tear or rupture of left shoulder, not specified as traumatic; M75.52 Bursitis of left shoulder
CPT/HCPCS: 73221

== ENCOUNTER 2022-02-27 01:10 | Day surgery (SDC) | payer MEDICARE, SELFPAY ==
--- NOTE | 2022-02-18 08:44 | PC.NURSE ---
Report to the Outpatient Waiting Room, entrance under the green pavilion located off [facility], at time _1200 on date __02/27/22 . OR Time: __1400 . - You and your visitor will be asked a series of questions to screen for COVID 19 for your protection. - A mask is required within the hospital. Preoperative COVID Testing Requirements: No COVID Test needed if: (proof is required; if not received patient will have Rapid Test prior to entry) - Patient has received COVID Vaccine at least 14 days prior to procedure date or - Patient has positive COVID test result within last 90 days of surgery date. COVID Test needed if above criteria is not met If not COVID vaccinated a COVID test must be conducted within 72 hours of surgery and patient is asked to isolate self from time of testing until procedure. You will go to the [facility] for your COVID testing. The [facility] is located at the corner of [address] [facility]. You will only be called if COVID results are positive and your surgeon may reschedule your elective surgery date. Patients may have clear liquids (water, carbonated beverages, clear teas, apple juice) until 3 hours prior to surgery with a maximum of 20 ounces. - No food from midnight until time of surgery - Infants may have breast milk until 4 hours before surgery, formula 6 hours prior to surgery. - Children will be allowed to drink immediately following surgery. If applicable, please bring a bottle or sippy cup to assist with drinking. Juice, water, soda, and popsicles are readily available. For infants on formula, please bring formula the day of surgery. Pacifiers are allowed. Take the following medications with a SIP of water the morning of surgery: ___NONE Medications to discontinue per physician __PT STATES LAST DOSE OF ALL VITAMINS AND SUPPLEMENTS WAS 02/04/22 Date to take last dose Please no make-up, nail spanish, hairspray, perfume, deodorant, or body powder the day of surgery. No jewelry (including any body piercings) or valuables the day of surgery, leave them at home. Please take a shower or bath the night before, or the morning of, surgery with an antibacterial soap. Wear comfortable, loose fitting clothing. Children are encouraged to wear pajamas. - Jewelry must be removed prior to entering the operating room. Rings and piercings that are not removed may be cut off. - The hospital will not accept responsibility for valuables. - Please leave all valuables, including medications, at home the day of surgery. If you are going home after surgery, a licensed motor bus driver must drive you home. - NO public transportation without another adult. - We recommend that an adult stay with you for 24 hours following discharge. - We also recommend that you do not drive, make important decision, drink alcoholic beverages, or take any drugs that were not prescribed by your health care provider for at least 24 hours after your discharge time. For Pediatric surgeries, we recommend two adults accompany the child home (only one inside the building at this time). One visitor will be allowed to accompany the patient into the hospital. Patients visitor will be instructed to remain with patient at all times or leave the building. We will allow the visitor to come back to the postoperative area when patient is ready. Follow any additional instructions given to you from your surgeon. Telephone instructions given to __PATIENT and asked if any additional questions and then verbalized understanding. Patient advised to call surgeon office or pre surgery nurse liaison [phone] if any additional questions.
[2022-02-18 08:53] VITALS: BMI 24.7
[2022-02-27] VITALS (9 sets, daily range): BP systolic 103–140; BP diastolic 49–67; PULSE 60–102; RESP 14–20; TEMP 36.3–36.4; O2SAT 96–100
--- NOTE | 2022-02-27 07:14 | WPDHPUPDATE1 ---
History and Physical Update Update Date/Time: 02/27/22 07:14 History and Physical has been reviewed, including an updated exam of the patient. There are NO changes in the patient's condition. Risks, benefits, and alternatives have been discussed and questions answered. Patient agrees to proceed with procedure.
[2022-02-27] MEDS: LACTATED RINGERS 1,000 ML 30 ML IV CONT ×2 (08:45→12:27)
[2022-02-27] MEDS: ACETAMINOPHEN 500 MG TABLET 1000 MG PO (08:45)
--- NOTE | 2022-02-27 09:50 | WPDANESEPPF ---
Anes - Initial Pre Proc Eval Procedure: Operation Date: 02/27/22 10:30 Proposed Procedures p Left Rotator Cuff Repair - Slim Joaquin MD Date/Time: 02/27/22 09:50 Surgeon: Slim Joaquin MD Pre Op Diagnosis: left rotator cuff tear Patient Data Age: 66 Gender: F Height: 1.56 m Weight: 60.5 kg Last Vital Signs Temp 36.3 C L 02/27/22 09:24 Pulse 102 H 02/27/22 09:24 Resp 16 02/27/22 09:24 BP 140/61 02/27/22 09:24 Pulse Ox 100 02/27/22 09:24 Allergies Allergy/AdvReac Type Severity Reaction Status Date / Time aspirin AdvReac Intermediate CONTRAINDICATED Verified 02/27/22 08:37 R/T GASTRIC BYPASS ibuprofen AdvReac Intermediate nausea/PT Verified 02/27/22 08:37 STATES SHE GETS NO PAIN RELIEF Home Medications Medication Instructions Recorded Confirmed Type calcium carbonate 600 mg-vitamin 1 tablet PO DAILY 06/07/21 02/27/22 History D3 10 mcg (400 unit) tablet losartan 50 mg tablet 50 mg PO QAM 06/07/21 02/27/22 History fugvbxkc-owqxpte-bjqa-iron 18 1 tablet PO DAILY 06/07/21 02/27/22 History mg-FA 400 mcg-vit K 25 mcg tablet omega 3-for-wro-fish oil 60 mg-90 1 cap PO DAILY 06/07/21 02/27/22 History mg-500 mg capsule atorvastatin 40 mg PO DAILY 08/07/21 02/27/22 History cyanocobalamin (vitamin B-12) 500 mcg PO DAILY 08/07/21 02/27/22 History acetaminophen 500 mg tablet 500 mg PO PRN PRN tablet 01/18/22 02/27/22 History tramadol 50 mg tablet 50 mg PO BID PRN tablet 01/18/22 02/27/22 History Patient hx anesthesia problems: none Family hx anesthesia problems: none Results Review: All pre-operative results and documents have been reviewed as part of the pre-operative evaluation. 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 DJD (degenerative joint disease), lumbar History of stroke HTN (hypertension) Hyperlipidemia Left shoulder pain ERVIN (obstructive sleep apnea) Osteoarthritis Smoking Wears glasses Surgical History Surgical History S/P total hip arthroplasty Family History Family History Other Cerebrovascular accident Diabetes mellitus Family history of arthritis Family history of cardiovascular disease Family history of seizure disorder Hypertension Social History Social History Smoking packs per day: 1 Smoking cigarettes per day: 20.0 Years smoked: 50 Smoking pack-years: 50.00 Tobacco type: cigarettes Smoking end date: 02/17/22 Additional smoking assessment comments: HAS ONE CIGARETTE OCC. Alcohol intake: current Drinks per week: 8 Substance use: never Living arrangements: with friend(s) Additional living arrangements comments: BOYFRIEND Spiritual care concerns: No Anes - Eval Final PreProcedure Day of Procedure 02/27/22 09:50 Patient weight: normal Heart: regular rate and rhythm Lungs: decreased breath sounds Airway: Mallampati scale class II Neurological: other (alert) Last oral intake: >/= 8 hours ASA classification: III Emergent: no Anesthetic plan: proceed Anesthesia type and monitoring: general ETT and standard monitoring Results Review: All pre-operative results and documents have been reviewed as part of the pre-operative evaluation. Informed Consent: The patient's anesthetic plan and its attendant risks and benefits were discussed with the patient/family/POA. Questions were solicited and answers provided to the satisfaction of the patient/family/POA.
--- NOTE | 2022-02-27 10:48 | WPDANESPNB ---
Anes - Peripheral Nerve Block Date/Time: 02/27/22 10:48 I have discussed with the patient/family/POA the placement of a peripheral nerve block for post-operative pain management, including associated risks, benefits, complications, and side effects. Alternative methods of post-operative analgesia were detailed. Questions were solicited and answers provided to the satisfaction of the patient/family/POA. Time-Out: A pre-procedural Time-Out was completed immediately before starting the procedure and confirmed: Patient Identification, Site, Procedure, Patient Position and the Availability of Requisite Equipment. Clinical Indications: Acute post-operative pain management requested by the operative surgeon. Nerve Block Insertion Note Anes-nerve block: interscalene left Patient position: other (sitting) Skin prep: chlorhexidine Needle: 22 gauge, stimulating, insulated echogenic needle. Needle length: 50 mm Technique: nerve stimulation lost at (mA) (0.3) and ultrasound Technique comment: mid2mg [id number] Injectate: bupivacaine 0.5% with epi 5 mcg/ml (30ml no epi) and dexamethasone (mg) (4) Observations: tolerated well Complications: none Procedure start time:: 1039 Procedure end time:: 1044
[2022-02-27] MEDS: ceFAZolin 2 GM/D5W 50 ML 2 GM/50 ML BAG IVPB (10:49)
[2022-02-27] MEDS: ceFAZolin SODIUM 1 GM VIAL IRRIGATION (11:29)
--- NOTE | 2022-02-27 12:27 | W.PM.PROC2 ---
Procedure Note - Detailed Date of Procedure 02/27/22 Pre-op Diagnosis left rotator cuff tear Post-op Diagnosis Same Procedure Performed REPAIR LEFT ROTATOR CUFF WITH DCE Surgeon Slim Joaquin MD Anesthesia General Description of Procedure THE PATIENT WAS TAKEN TO THE OPERATING ROOM AND THEN INTUBATED AND PLACED IN THE BEACH CHAIR POSITION. THE LEFT UPPER EXTREMITY WAS PREPPED AND DRAPED IN THE NORMAL STERILE FASHION. AN INCISION WAS MADE IN BETWEEN THE SALVATORE-LATERAL ACROMION AND THE AC JOINT. THE AC JOINT WAS INCISED. THE DELTOID FASCIA WAS IDENTIFIED. NEXT A MINI OPEN INCISION WAS MADE THROUGH THE DELTOID MUSCLE EXPOSING THE SUBACROMIAL SPACE. A LIMITED ACROMIOPLASTY WAS PREFORMED. THE ROTATOR CUFF WAS IDENTIFIED. THE TEAR WAS IDENTIFIED. IT WAS A FULL THICKNESS TEAR. THE CUFF WAS THINNING WELL. IT INVOLVED MAINLY THE SUPRASPINATUS AND INFRASPINATUS. IT MEASURED APPROXIMATELY 2 CM X 2 CM. THE GREATER TUBEROSITY WAS DEBRIDED TO BLEEDING BONE. 2 ARTHREX 5.5 SUTURE ANCHORS WERE PLACED IN TO GOOD BONE AND HAD VERY GOOD BITES. AUGUST-DIEGO TYPE REPAIRS WERE DONE TO THE ROTATOR CUFF AND THERE WAS GOOD APPROXIMATION TO THE GREATER TUBEROSITY. THE REPAIR WAS EXCELLENT. THERE WAS NO IMPINGEMENT ON THE REPAIR FROM THE ACROMION WITH RANGE OF MOTION. THE WOUND WAS IRRIGATED WITH COPIOUS AMOUNTS OF ANTIBIOTIC SOLUTION. THE DELTOID MUSCLE WAS REPAIRED WITH #2 FIBER WIRE AND 0 VICRYL SUTURE. THE SUBCUTANEOUS LAYER WAS APPROXIMATED WITH 2-0 VICRYL. THE SKIN WAS APPROXIMATED WITH 3-0 QUIL AND DERMABOND. STERILE DRESSING WAS APPLIED. PATIENT WAS EXTUBATED. Estimated Blood Loss -20.0 Complications No immediate complications Condition Stable Disposition PACU
== END 2022-02-27 14:35 | disposition home or self-care (01) ==
PROVIDERS: PCP Emergency Medicine; Visit Provider Orthopaedic Surgery
PROC: (CPT 23420; principal; 2022-02-27 10:30)
DX: M75.122 Complete rotator cuff tear or rupture of left shoulder, not specified as traumatic (principal); M25.512 Pain in left shoulder; Z87.891 Personal history of nicotine dependence; I10 Essential (primary) hypertension; E78.5 Hyperlipidemia, unspecified; G47.33 Obstructive sleep apnea (adult) (pediatric); Z86.73 Personal history of transient ischemic attack (TIA), and cerebral infarction without residual deficits
CPT/HCPCS: 23420; A9270; C1713; J0330; J0690; J1100; J2250; J2370; J2405; J2704; J3010; J7120

== ENCOUNTER 2022-10-09 07:18 | Outpatient (CLI) | payer MEDICARE, OTHER, SELFPAY ==
--- NOTE | ~2022-10-09 | CT_ITS ---
EXAMINATION: CT lung screening DATE: 10/09/2022 07:41 INDICATION: Personal history of nicotine dependence, current smoker with 54 pack year history TECHNIQUE: Computed tomography (CT) of the chest was performed without intravenous contrast. The dose -length product (DLP) was 56.10 mGy-cm. Automated exposure control and iterative reconstruction techn mSellerue were employed. COMPARISON: None FINDINGS: There is mild emphysema. There is a 2 mm nodule of the right upper lobe. There are two 3 mm subpleural nodules of the left lower lobe. Calcified pulmonary nodules are consistent with old granu lomatous disease. No pleural effusion or pneumothorax. No pathologically enlarged thoracic lymph node s are identified. The heart size is normal. Calcified coronary artery atherosclerosis is noted. No pa thologically enlarged thoracic lymph nodes are identified. The heart size is normal. There are surgic al changes at the gastroesophageal junction. There is moderate thoracic spondylosis. IMPRESSION: 1. Lung-RADS category 2: Benign appearance or behavior. Continue annual screening with noncontrast lo w-dose chest CT in 12 months. Reviewed, dictated and finalized at location A. OFF SAW SET UP OPERATOR IMPRESSION: 1. Lung-RADS category 2: Benign appearance or behavior. Continue annual screeni ng with noncontrast low-dose chest CT in 12 months.
== END 2022-10-09 07:19 | disposition home or self-care (01) ==
LOC: ANHIMG 07:23
PROVIDERS: PCP Emergency Medicine; Visit Provider Emergency Medicine
DX: Z12.2 Encounter for screening for malignant neoplasm of respiratory organs (principal); Z87.891 Personal history of nicotine dependence
CPT/HCPCS: 71271

== ENCOUNTER 2022-12-11 08:34 | Outpatient (CLI) | payer MEDICARE, OTHER, SELFPAY ==
--- NOTE | ~2022-12-11 | MM_ITS ---
EXAMINATION: MM screening tone BI w sridevi HISTORY: Screening mammogram TECHNIQUE: Craniocaudal and mediolateral oblique 3-D tomosynthesis images were obtained and synthetic 2-D images were generated. CAD analysis was submitted and interpreted. COMPARISON: No prior mammogram is available for comparison at this institution. BREAST PARENCHYMAL COMPOSITION: The breasts are heterogeneously dense, which may obscure small masses ........... FINDINGS: There is no evidence of suspicious mass, calcification, or architectural distortion to sugg est malignancy in either breast. There has been no suspicious interval change. IMPRESSION: 1. No mammographic evidence of malignancy. 2. Recommend routine screening mammography in one year. BI-RADS Category 1: Negative Reviewed, dictated and finalized at location A. L OFFICE ADMINISTRATOR
== END 2022-12-11 08:35 | disposition home or self-care (01) ==
PROVIDERS: PCP Emergency Medicine; Visit Provider Emergency Medicine
DX: Z12.31 Encounter for screening mammogram for malignant neoplasm of breast (principal)
CPT/HCPCS: 77063; 77067

== ENCOUNTER 2022-12-20 01:28 | Day surgery (SDC) | payer MEDICARE, OTHER, SELFPAY ==
[2022-12-10 08:22] VITALS: BMI 23.3
[2022-12-20 11:39] VITALS: BP 144/53; PULSE 61; RESP 18; TEMP 36.7; O2SAT 100
[2022-12-20] MEDS: LACTATED RINGERS 1,000 ML 150 ML IV CONT (11:49)
--- NOTE | 2022-12-20 12:14 | WPDANESEPPF ---
Anes - Initial Pre Proc Eval Procedure: Operation Date: 12/20/22 13:00 Proposed Procedures p Screening Colonoscopy - Jean Paul Blue MD Date/Time: 12/20/22 12:14 Surgeon: Jean Paul Blue MD Pre Op Diagnosis: neoplasm screening Patient Data Age: 67 Gender: F Height: 1.56 m Weight: 56.1 kg Last Vital Signs Temp 98.1 F 12/20/22 11:39 Pulse 61 12/20/22 11:39 Resp 18 12/20/22 11:39 BP 144/53 H 12/20/22 11:39 Pulse Ox 100 12/20/22 11:39 O2 Del Method Room Air 12/20/22 11:39 Allergies Allergy/AdvReac Type Severity Reaction Status Date / Time aspirin AdvReac Intermediate CONTRAINDICATED Verified 12/20/22 11:42 R/T GASTRIC BYPASS ibuprofen AdvReac Intermediate nausea/PT Verified 12/20/22 11:42 STATES SHE GETS NO PAIN RELIEF Home Medications Medication Instructions Recorded Confirmed Type calcium carbonate 600 mg-vitamin 1 tablet PO DAILY 06/07/21 12/10/22 History D3 10 mcg (400 unit) tablet losartan 50 mg tablet 50 mg PO QAM 06/07/21 12/10/22 History ylsmqfpx-mcscnml-nwmi-iron 18 1 tablet PO DAILY 06/07/21 12/10/22 History mg-FA 400 mcg-vit K 25 mcg tablet (One-A-Day Women's Complete) atorvastatin 40 mg tablet 40 mg PO DAILY 08/07/21 12/10/22 History cyanocobalamin (vitamin B-12) 500 500 mcg PO DAILY 08/07/21 12/10/22 History mcg tablet acetaminophen 500 mg tablet 500 mg PO PRN PRN pain 01/18/22 12/10/22 History (Tylenol Extra Strength) Patient hx anesthesia problems: none Family hx anesthesia problems: none Results Review: All pre-operative results and documents have been reviewed as part of the pre-operative evaluation. 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 DJD (degenerative joint disease), lumbar History of stroke HTN (hypertension) Hyperlipidemia Left shoulder pain ERVIN (obstructive sleep apnea) Osteoarthritis Smoking Wears glasses Surgical History Surgical History (System 03/22/22 @ 12:00 by Caridad Miller) S/P left rotator cuff repair DOS 02/27/22 S/P total hip arthroplasty Family History Family History Other Cerebrovascular accident Diabetes mellitus Family history of arthritis Family history of cardiovascular disease Family history of seizure disorder Hypertension Social History Social History (Updated 05/16/22 @ 09:58 by Rachel Ramsay MA) Smoking packs per day: 0.5 Smoking cigarettes per day: 10.0 Years smoked: 50 Smoking pack-years: 25.00 Smoking status: Current every day smoker Tobacco type: cigarettes Smoking end date: 02/17/22 Additional smoking assessment comments: HAS ONE CIGARETTE OCC. Alcohol intake: current Drinks per week: 4 Alcohol use details: BEERS Substance use: never Substance use type: does not use Living arrangements: with family Additional living arrangements comments: BOYFRIEND Spiritual care concerns: No Anes - Eval Final PreProcedure Day of Procedure 12/20/22 12:14 Patient weight: normal Heart: regular rate and rhythm Lungs: clear to auscultation Neurological: alert and oriented Last oral intake: >/= 8 hours ASA classification: III Emergent: no Anesthetic plan: proceed Anesthesia type and monitoring: general GIVS and standard monitoring Results Review: All pre-operative results and documents have been reviewed as part of the pre-operative evaluation. Informed Consent: The patient's anesthetic plan and its attendant risks and benefits were discussed with the patient/family/POA. Questions were solicited and answers provided to the satisfaction of the patient/family/POA.
--- NOTE | 2022-12-20 12:43 | PM.HPGS ---
History of Present Illness History of Present Illness Consent: Risks, benefits, and alternatives have been discussed and questions answered. Patient agrees to proceed with procedure. Chief complaint: neoplasm screening Narrative: Gayathri Kim is a 67 year old female here for screening colonoscopy, last one over 10 years ago Review of Systems Constitutional: Constitutional: Denies headache(s) and Denies weakness Eyes: Eyes: Denies blurry vision ENT: Reports Normal hearing present, Denies headache(s) and Denies neck pain Cardiovascular: Cardiovascular: Denies chest pain and Denies dyspnea Respiratory: Respiratory: Denies dyspnea Gastrointestinal: Gastrointestinal: Reports no additional gastrointestinal complaints Genitourinary: Genitourinary: Denies dysuria Musculoskeletal: Musculoskeletal: Denies neck pain Integumentary/Breasts: Skin/Breast: Denies dry skin Neurologic: Reports Normal hearing present, Denies headache(s) and Denies weakness Psychiatric: Psychiatric: Denies anxiety Endocrine: Endocrine: Denies change in body appearance Hematologic/Lymphatic: Hematologic/Lymphatic: Denies easy bleeding Allergic/Immunologic: Allergic/Immunologic: Denies urticaria PMFSH Past Medical History Medical History (Updated 12/20/22 @ 12:44 by Jean Paul Blue MD) Chronic narcotic use Colon cancer screening CVA (cerebral vascular accident) 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 DJD (degenerative joint disease), lumbar History of stroke HTN (hypertension) Hyperlipidemia Left shoulder pain ERVIN (obstructive sleep apnea) Osteoarthritis Smoking Wears glasses Surgical History Surgical History (System 03/22/22 @ 12:00 by Caridad Miller) S/P left rotator cuff repair DOS 02/27/22 S/P total hip arthroplasty Family History Family History Other Cerebrovascular accident Diabetes mellitus Family history of arthritis Family history of cardiovascular disease Family history of seizure disorder Hypertension Social History Social History (Updated 05/16/22 @ 09:58 by Rachel Ramsay MA) Smoking packs per day: 0.5 Smoking cigarettes per day: 10.0 Years smoked: 50 Smoking pack-years: 25.00 Smoking status: Current every day smoker Tobacco type: cigarettes Smoking end date: 02/17/22 Additional smoking assessment comments: HAS ONE CIGARETTE OCC. Alcohol intake: current Drinks per week: 4 Alcohol use details: BEERS Substance use: never Substance use type: does not use Living arrangements: with family Additional living arrangements comments: BOYFRIEND Spiritual care concerns: No Meds Home Medications and Allergies Home Medications Medication Instructions Recorded Confirmed Type calcium carbonate 600 mg-vitamin 1 tablet PO DAILY 06/07/21 12/10/22 History D3 10 mcg (400 unit) tablet losartan 50 mg tablet 50 mg PO QAM 06/07/21 12/10/22 History svbavoas-hqtwyaj-psjy-iron 18 1 tablet PO DAILY 06/07/21 12/10/22 History mg-FA 400 mcg-vit K 25 mcg tablet (One-A-Day Women's Complete) atorvastatin 40 mg tablet 40 mg PO DAILY 08/07/21 12/10/22 History cyanocobalamin (vitamin B-12) 500 500 mcg PO DAILY 08/07/21 12/10/22 History mcg tablet acetaminophen 500 mg tablet 500 mg PO PRN PRN pain 01/18/22 12/10/22 History (Tylenol Extra Strength) Allergies Allergy/AdvReac Type Severity Reaction Status Date / Time aspirin AdvReac Intermediate CONTRAINDICATED Verified 12/20/22 11:42 R/T GASTRIC BYPASS ibuprofen AdvReac Intermediate nausea/PT Verified 12/20/22 11:42 STATES SHE GETS NO PAIN RELIEF Vital Signs Vital Signs - 24 hr 12/20/22 11:39 Temperature 98.1 F Pulse Rate 61 Respiratory Rate 18 Blood Pressure 144/53 H Pulse Oximetry 100 Oxygen Delivery Room Air Exam Const: General: comfortable and
[2022-12-20 13:15] VITALS: BP 132/52; PULSE 71; RESP 17; O2SAT 100
[2022-12-20 13:25] VITALS: BP 130/50; PULSE 78; RESP 22; O2SAT 100
[2022-12-20 13:35] VITALS: BP 156/55; PULSE 79; RESP 20; O2SAT 100
== END 2022-12-20 13:46 | disposition home or self-care (01) ==
PROVIDERS: PCP Emergency Medicine; Visit Provider Internal Medicine Gastroenterology
PROC: 0DJD8ZZ Inspection of Lower Intestinal Tract, Via Natural or Artificial Opening Endoscopic (ICD-10-PCS; CPT 45378; principal; 2022-12-20 13:00)
DX: Z12.11 Encounter for screening for malignant neoplasm of colon (principal); K57.30 Diverticulosis of large intestine without perforation or abscess without bleeding; K64.8 Other hemorrhoids; I10 Essential (primary) hypertension; E78.5 Hyperlipidemia, unspecified; G47.33 Obstructive sleep apnea (adult) (pediatric); Z86.73 Personal history of transient ischemic attack (TIA), and cerebral infarction without residual deficits; F17.210 Nicotine dependence, cigarettes, uncomplicated
CPT/HCPCS: G0121; J0461; J2704; J7120

== ENCOUNTER 2023-01-10 01:43 | Day surgery (SDC) | payer MEDICARE, OTHER, SELFPAY ==
[2023-01-01 12:10] VITALS: BMI 23.4
[2023-01-10 11:29] VITALS: BP 143/47; PULSE 68; RESP 16; TEMP 36.6; O2SAT 100
[2023-01-10] MEDS: LACTATED RINGERS 1,000 ML 150 ML IV CONT (11:37)
--- NOTE | 2023-01-10 11:51 | WPDANESEPPF ---
Anes - Initial Pre Proc Eval Procedure: Operation Date: 01/10/23 12:30 Proposed Procedures p Esophagogastroduodenoscopy - Jean Paul Blue MD Date/Time: 01/10/23 11:51 Surgeon: Jean Paul Blue MD Pre Op Diagnosis: KARI Patient Data Age: 67 Gender: F Height: 1.56 m Weight: 56.2 kg Last Vital Signs Temp 36.6 C 01/10/23 11:29 Pulse 68 01/10/23 11:29 Resp 16 01/10/23 11:29 BP 143/47 H 01/10/23 11:29 Pulse Ox 100 01/10/23 11:29 O2 Del Method Room Air 01/10/23 11:29 Allergies Allergy/AdvReac Type Severity Reaction Status Date / Time aspirin AdvReac Intermediate CONTRAINDICATED Verified 01/10/23 11:27 R/T GASTRIC BYPASS ibuprofen AdvReac Intermediate nausea/PT Verified 01/10/23 11:27 STATES SHE GETS NO PAIN RELIEF Home Medications Medication Instructions Recorded Confirmed Type calcium carbonate 600 mg-vitamin 1 tablet PO DAILY 06/07/21 01/10/23 History D3 10 mcg (400 unit) tablet losartan 50 mg tablet 50 mg PO QAM 06/07/21 01/10/23 History fgxmswss-fmnuozl-vizb-iron 18 1 tablet PO DAILY 06/07/21 01/10/23 History mg-FA 400 mcg-vit K 25 mcg tablet (One-A-Day Women's Complete) atorvastatin 40 mg tablet 40 mg PO DAILY 08/07/21 01/10/23 History cyanocobalamin (vitamin B-12) 500 500 mcg PO DAILY 08/07/21 01/10/23 History mcg tablet acetaminophen 500 mg tablet 500 mg PO PRN PRN pain 01/18/22 01/10/23 History (Tylenol Extra Strength) Patient hx anesthesia problems: none Family hx anesthesia problems: none Results Review: All pre-operative results and documents have been reviewed as part of the pre-operative evaluation. 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garettes per day: 10.0 Years smoked: 50 Smoking pack-years: 25.00 Smoking status: Former smoker Tobacco type: cigarettes Smoking end date: 02/17/22 Additional smoking assessment comments: HAS ONE CIGARETTE OCC. Alcohol intake: current Drinks per week: 4 Alcohol use details: BEERS Substance use: never Substance use type: does not use Living arrangements: with family Additional living arrangements comments: BOYFRIEND Spiritual care concerns: No Anes - Eval Final PreProcedure Day of Procedure 01/10/23 11:51 Patient weight: normal Heart: regular rate and rhythm Lungs: clear to auscultation Airway: Mallampati scale class II Neurological: alert and oriented Last oral intake: >/= 8 hours ASA classification: III Emergent: no Anesthetic plan: proceed Anesthesia type and monitoring: general GIVS and standard monitoring Results Review: All pre-operative results and documents have been reviewed as part of the pre-operative evaluation. Informed Consent: The patient's anesthetic plan and its attendant risks and benefits were discussed with the patient/family/POA. Questions were solicited and answers provided to the satisfaction of the patient/family/POA.
--- NOTE | 2023-01-10 11:58 | WPDHPUPDATE1 ---
History and Physical Update Update Date/Time: 01/10/23 11:58 History and Physical has been reviewed, including an updated exam of the patient. There are NO changes in the patient's condition. Risks, benefits, and alternatives have been discussed and questions answered. Patient agrees to proceed with procedure.
[2023-01-10 12:19] VITALS: BP 127/55; PULSE 68; RESP 20; O2SAT 99
[2023-01-10 12:31] VITALS: BP 129/82; PULSE 61; RESP 16; O2SAT 99
[2023-01-10 12:41] VITALS: BP 133/58; PULSE 60; RESP 15; O2SAT 100
== END 2023-01-10 12:45 | disposition home or self-care (01) ==
PROVIDERS: PCP Emergency Medicine; Visit Provider Internal Medicine Gastroenterology
PROC: 0DJ08ZZ Inspection of Upper Intestinal Tract, Via Natural or Artificial Opening Endoscopic (ICD-10-PCS; CPT 43235; principal; 2023-01-10 12:30)
DX: D50.9 Iron deficiency anemia, unspecified (principal); Z98.84 Bariatric surgery status; I10 Essential (primary) hypertension; E78.5 Hyperlipidemia, unspecified; G47.33 Obstructive sleep apnea (adult) (pediatric); Z86.73 Personal history of transient ischemic attack (TIA), and cerebral infarction without residual deficits; Z72.0 Tobacco use
CPT/HCPCS: 43239; 88305; J2704; J7120

== ENCOUNTER 2023-01-25 10:56 | Emergency (ER) | payer MEDICARE, OTHER, SELFPAY ==
--- NOTE | ~2023-01-25 | XR_ITS ---
EXAMINATION: XR chest 2V DATE: 01/25/2023 11:29 INDICATION: Hemoptysis. TECHNIQUE: Frontal and lateral views of the chest were obtained. COMPARISON: Chest CT 10/09/2022 FINDINGS: The chest demonstrates clear lungs without pneumonia, pleural effusion, or pneumothorax. Th e heart size is normal. IMPRESSION: 1. No acute cardiopulmonary disease. Reviewed, dictated and finalized at location A.
[2023-01-25 10:58] VITALS: BP 159/58; PULSE 73; RESP 18; TEMP 36.6; O2SAT 99
--- NOTE | 2023-01-25 11:14 | ECG_ITS ---
Measurements Intervals [place] Rate: 64 P: [place]: 0 QRS: 15 QRSD: 89 T: 32 QT: 447 QTc: 461 Interpretive Statements SINUS RHYTHM WITH PACS COMPARED TO ECG 03/05/2019 11:49:43 NO SIGNIFICANT CHANGES Electronically Signed On 01-25-2023 15:49:11 CDT by Kal Oconnor M.D.
--- NOTE | 2023-01-25 11:16 | ED.GENADULT ---
HPI - General Adult General Chief complaint: Unspecified Stated complaint: coughing up blood Time Seen by Provider: 01/25/23 11:06 Source: patient Mode of arrival: ambulatory Limitations: no limitations History of Present Illness HPI narrative: 67 y/o female presents with hemoptysis for 2 days. patient states she has been coughing up mucous with blood in it. patient denies fevers, night sweats, or hx of lung issues. patient has a hx of anemia but is not on blood thinner. patient denies chest pain, sob or abdominal pain. no other complaints Onset (ago): day(s) (2) Relieving factors: none Exacerbating factors: none Associated symptoms: cough Treatments prior to arrival: none Related Data Home Medications Medication Instructions Recorded Confirmed calcium carbonate 600 mg-vitamin 1 tablet PO DAILY 06/07/21 01/10/23 D3 10 mcg (400 unit) tablet losartan 50 mg tablet 50 mg PO QAM 06/07/21 01/10/23 yrctdoav-dnetucl-fzwq-iron 18 1 tablet PO DAILY 06/07/21 01/10/23 mg-FA 400 mcg-vit K 25 mcg tablet (One-A-Day Women's Complete) atorvastatin 40 mg tablet 40 mg PO DAILY 08/07/21 01/10/23 cyanocobalamin (vitamin B-12) 500 500 mcg PO DAILY 08/07/21 01/10/23 mcg tablet acetaminophen 500 mg tablet 500 mg PO PRN PRN pain 01/18/22 01/10/23 (Tylenol Extra Strength) Allergies Allergy/AdvReac Type Severity Reaction Status Date / Time aspirin AdvReac Intermediate CONTRAINDICATED Verified 01/25/23 11:45 R/T GASTRIC BYPASS ibuprofen AdvReac Intermediate nausea/PT Verified 01/25/23 11:45 STATES SHE GETS NO PAIN RELIEF Review of Systems Review of Systems: All systems reviewed & are unremarkable except as noted in HPI and below Constitutional: Constitutional: Reports no additional constitutional complaints, Denies body ache(s), Denies chills, Denies fever(s) and Denies night sweats Eyes: Eyes: Reports no additional eye complaints ENT: Reports system reviewed and no additional complaints, except as documented Cardiovascular: Cardiovascular: Reports no additional cardiovascular complaints Respiratory: Respiratory: Reports cough and Reports hemoptysis Gastrointestinal: Gastrointestinal: Reports no additional gastrointestinal complaints Genitourinary: Genitourinary: Reports no additional female genitourinary complaints Musculoskeletal: Musculoskeletal: Reports no additional musculoskeletal complaints Integumentary/Breasts: Skin/Breast: Reports system reviewed and no additional complaints, except as docu Neurologic: Reports system reviewed and no additional complaints, except as documented Psychiatric: Psychiatric: Reports no additional psychiatric complaints Endocrine: Endocrine: Reports no additional endocrine complaints Hematologic/Lymphatic: Hematologic/Lymphatic: Reports no additional hematologic/lymphatic complaints Allergic/Immunologic: Allergic/Immunologic: Reports no additional allergic/immunologic complaints PMFSH Past Medical History Medical History Chronic narcotic use Colon cancer screening CVA (cerebral vascular accident) 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
[2023-01-25 11:44] VITALS: PULSE 64
[2023-01-25 11:53] LABS: Basophils Absolute Auto 0.1 K/mm3 (0.0-0.1); Basophils Percent Auto 1.1 % (0.2-1.2); Eosinophils Percent Auto 0.5 % (0-4.4); Hematocrit 33.4 % (37.0-47.0); Hemoglobin 10.6 g/dL (12.0-15.0); Immature Granulocyte Absolute 0.01 K/mm3 (0.00-0.031); Immature Granulocyte Percent A 0.2 % (0-0.5); Lymphocytes Absolute Auto 1.88 K/mm3 (0.9-3.2); Lymphocytes Percent Auto 34.1 % (18.3-44.2); Mean Corpuscular HGB Conc 31.7 g/dl (32-36); Mean Corpuscular Hemoglobin 26.9 pg (26-34); Mean Corpuscular Volume 84.8 fl (80-100); Mean Platelet Volume 9.2 fl (7.4-10.4); Monocytes Absolute Auto 0.5 K/mm3 (0.1-0.6); Monocytes Percent Auto 9.1 % (2.6-8.5); Platelet Count Result 254 k/mm3 (150-375); Red Blood Count 3.94 M/mm3 (4.2-5.4); Red Cell Distribution Width 17.1 % (11.5-14.5); White Blood Count 5.5 K/mm3 (4.5-10.0)
[2023-01-25 11:59] LABS: INR 1.1; Partial Thromboplastin Time 36.6 SECONDS (22.3-36.8); Prothrombin Time 13.4 Seconds (11.1-14.7)
[2023-01-25 12:01] VITALS: BP 135/55; PULSE 62; RESP 15; O2SAT 97
[2023-01-25 12:03] LABS: Alanine Aminotransferase 23 U/L (6-35); Albumin Level 4.7 g/dL (3.5-5.1); Alkaline Phosphatase 92 U/L (38-126); Anion Gap 3 mmol/L (8-16); Aspartate Amino Transferase 36 U/L (14-36); Bilirubin,Total 0.6 mg/dL (0.2-1.3); Blood Urea Nitrogen 7 mg/dL (7-17); Calcium 9.4 mg/dL (8.4-10.2); Carbon Dioxide 32 mmol/L (22-30); Chloride 100 mmol/L (98-107); Estimated CRCL calculation 89 ml/min; Estimated Glomerular Filt Rate > 60; Glucose 100 mg/dL (65-110); Magnesium 2.1 mg/dL (1.6-2.3); Sodium 135 mmol/L (137-145)
[2023-01-25 12:05] LABS: D Dimer 0.47 ug/mL (<0.48)
--- NOTE | 2023-01-25 12:07 | ECG_ITS ---
Measurements Intervals [place] Rate: 58 P: 67 MN: 143 QRS: 26 QRSD: 85 T: 38 QT: 458 QTc: 450 Interpretive Statements SINUS BRADYCARDIA WITH MARKED SINUS ARRHYTHMIA Electronically Signed On 01-25-2023 15:50:06 CDT by Kal Oconnor M.D.
[2023-01-25 12:14] LABS: Troponin I < 0.012 ng/mL (0.000-0.034)
[2023-01-25 12:28] LABS: SARS-CoV-2 RNA PCR Negative
[2023-01-25 12:59] VITALS: BP 141/55; PULSE 60; RESP 18; O2SAT 99
[2023-01-25 13:06] VITALS: BP 119/56; PULSE 60; RESP 18; O2SAT 99
== END 2023-01-25 13:08 | disposition home or self-care (01) ==
PROVIDERS: Emergency Provider Nurse Practitioner Family; PCP Emergency Medicine
DX: R04.2 Hemoptysis (principal); J06.9 Acute upper respiratory infection, unspecified; E78.5 Hyperlipidemia, unspecified; I10 Essential (primary) hypertension; Z86.73 Personal history of transient ischemic attack (TIA), and cerebral infarction without residual deficits; Z87.891 Personal history of nicotine dependence; Z20.822 Contact with and (suspected) exposure to COVID-19
CPT/HCPCS: 36415; 71046; 80053; 83735; 84484; 85025; 85380; 85610; 85730; 93005; 99283; 99284; U0003; U0005

== ENCOUNTER 2023-04-30 08:46 | Outpatient (CLI) | payer MEDICARE, OTHER, SELFPAY ==
[2023-04-30 09:08] LABS: Urine Cotinine NEGATIVE
== END 2023-04-30 08:47 | disposition home or self-care (01) ==
PROVIDERS: PCP Emergency Medicine; Visit Provider Orthopaedic Surgery
DX: F17.200 Nicotine dependence, unspecified, uncomplicated (principal); I10 Essential (primary) hypertension; M16.9 Osteoarthritis of hip, unspecified; F11.90 Opioid use, unspecified, uncomplicated; Z79.899 Other long term (current) drug therapy
CPT/HCPCS: 80307

== ENCOUNTER 2023-05-12 13:53 | Outpatient (CLI) | payer MEDICARE, OTHER, SELFPAY ==
[2023-05-12 15:15] LABS: Basophils Absolute Auto 0.1 K/mm3 (0.0-0.1); Basophils Percent Auto 1.1 % (0.2-1.2); Eosinophils Absolute Auto 0.1 K/mm3 (0-0.3); Eosinophils Percent Auto 1.2 % (0-4.4); Hematocrit 41.6 % (37.0-47.0); Hemoglobin 13.9 g/dL (12.0-15.0); Immature Granulocyte Absolute 0.01 K/mm3 (0.00-0.031); Immature Granulocyte Percent A 0.2 % (0-0.5); Lymphocytes Absolute Auto 1.97 K/mm3 (0.9-3.2); Lymphocytes Percent Auto 30.3 % (18.3-44.2); Mean Corpuscular HGB Conc 33.4 g/dl (32-36); Mean Corpuscular Hemoglobin 32.8 pg (26-34); Mean Corpuscular Volume 98.1 fl (80-100); Mean Platelet Volume 9.4 fl (7.4-10.4); Monocytes Absolute Auto 0.8 K/mm3 (0.1-0.6); Monocytes Percent Auto 11.7 % (2.6-8.5); Neutrophils Absolute Auto 3.6 K/mm3 (1.3-6.7); Neutrophils Percent Auto 55.5 % (45.5-73.1); Platelet Count Result 195 k/mm3 (150-375); Red Blood Count 4.24 M/mm3 (4.2-5.4); Red Cell Distribution Width 12.8 % (11.5-14.5); White Blood Count 6.5 K/mm3 (4.5-10.0)
[2023-05-12 15:22] LABS: Appearance Urine Clear (Clear); Bacteria Urine None Seen /hpf; Bilirubin Urine Negative (Negative); Blood Urine Trace (Negative); Color Urine Yellow (Yellow); Glucose Urine UA Negative (Negative); Ketones Urine Negative (Negative); Leukocyte Esterase Ur Negative LEU/UL (Negative); Nitrate Urine Negative (Negative); Non Pathogenic Casts 0-2; Protein Urine Negative (Negative); Specific Grav Ur 1.007 (1.001-1.035); Squamous Epithelial Cell Urine None seen /hpf (Few); WBC Urine 0-5 /hpf; pH Urine 6.5 (5.0-9.0)
[2023-05-12 15:24] LABS: Add Urine Microscopic? YES; Urine Cotinine NEGATIVE
[2023-05-12 15:25] LABS: INR 0.9; Prothrombin Time 12.7 Seconds (11.1-14.7)
[2023-05-12 15:26] LABS: Albumin Level 4.6 g/dL (3.5-5.1); Anion Gap 8 mmol/L (8-16); Blood Urea Nitrogen 13 mg/dL (7-17); Calcium 9.7 mg/dL (8.4-10.2); Carbon Dioxide 27 mmol/L (22-30); Chloride 98 mmol/L (98-107); Estimated Glomerular Filt Rate > 60; Glucose 86 mg/dL (65-110); Partial Thromboplastin Time 36.2 SECONDS (22.3-36.8); Potassium 4.7 mmol/L (3.4-5.0); Sodium 133 mmol/L (137-145)
== END 2023-05-12 13:54 | disposition home or self-care (01) ==
LOC: ANHSURGERY 13:57
PROVIDERS: PCP Emergency Medicine; Visit Provider Orthopaedic Surgery
DX: M17.9 Osteoarthritis of knee, unspecified (principal); Z01.818 Encounter for other preprocedural examination
CPT/HCPCS: 80048; 80307; 81001; 82040; 83036; 85025; 85610; 85730; 87081

== ENCOUNTER 2023-05-29 13:06 | Observation (INO) | payer MEDICARE, OTHER, SELFPAY ==
[2023-05-12 14:04] VITALS: BMI 24.2
--- NOTE | 2023-05-12 14:30 | PC.NURSE ---
Report to the Outpatient Waiting Room, entrance under the green pavilion located off [facility], at time __0830 on date _05/28/23 . Planned Procedure Time: _1030 . Time changes happen often and if your time is changed the preop area will call you the afternoon before. - You and your visitor will be asked to self-screen and do not enter if you have any COVID symptoms. - A mask is optional within the hospital at this time. Patients may have clear liquids (water, carbonated beverages, clear teas, apple juice) until 3 hours prior to surgery with a maximum of 20 ounces. - No food from midnight until time of surgery - Infants may have breast milk until 4 hours before surgery, formula 6 hours prior to surgery. - Children will be allowed to drink immediately following surgery. If applicable, please bring a bottle or sippy cup to assist with drinking. Juice, water, soda, and popsicles are readily available. For infants on formula, please bring formula the day of surgery. Pacifiers are allowed. Take the following medications with a SIP of water the morning of surgery: __NONE DO NOT STOP ANY OF YOUR OTHER PRESCRIPTION MEDICATIONS PRIOR TO SURGERY ?EXCEPT THE FOLLOWING Medications to discontinue per physician ____ALL VITAMINS/SUPPLEMENTS 3 DAYS PRE OP.LAST DOSE 05/25/23 TOTAL JOINT CLASS 05/14/23 AT 10 AM Please no make-up, nail congolese, hairspray, perfume, deodorant, or body powder the day of surgery. No jewelry (including any body piercings) or valuables the day of surgery, leave them at home. Please take a shower or bath the night before, or the morning of, surgery with an antibacterial soap. Wear comfortable, loose fitting clothing. Children are encouraged to wear pajamas. - Jewelry must be removed prior to entering the operating room. Rings and piercings that are not removed may be cut off. - The hospital will not accept responsibility for valuables. - Please leave all valuables, including medications, at home the day of surgery. If you are going home after surgery, a licensed driver license examiner must drive you home. - NO public transportation without another adult if you receive anesthesia. - We recommend that an adult stay with you for 24 hours following discharge. - We also recommend that you do not drive, make important decision, drink alcoholic beverages, or take any drugs that were not prescribed by your health care provider for at least 24 hours after your discharge time. For Pediatric surgeries, we recommend two adults accompany the child home. Follow any additional instructions given to you from your surgeon. If you or anyone in your household have experienced Covid symptoms in the past week, please notify your surgeon or the nurse liaison at the phone number below for possible testing. VERBAL AND WRITTEN instructions given to __PATIENT and asked if any additional questions and then verbalized understanding. Patient advised to call surgeon office or pre surgery nurse liaison [phone] if any additional questions.
[2023-05-12 14:50] VITALS: BP 138/72; PULSE 72; RESP 18; TEMP 36.6; O2SAT 99
--- NOTE | 2023-05-27 14:58 | WPDANESEPPF ---
Anes - Initial Pre Proc Eval Procedure: Operation Date: 05/28/23 07:30 Proposed Procedures p Right Total Knee Arthroplasty - Slim Joaquin MD Date/Time: 05/27/23 14:58 Surgeon: Slim Joaquin MD Pre Op Diagnosis: right knee djd Patient Data Age: 67 Gender: F Height: 1.56 m Weight: 59.1 kg Last Vital Signs Temp 36.6 C 05/12/23 14:50 Pulse 72 05/12/23 14:50 Resp 18 05/12/23 14:50 BP 138/72 05/12/23 14:50 Pulse Ox 99 05/12/23 14:50 O2 Del Method Room Air 05/12/23 14:50 Allergies Allergy/AdvReac Type Severity Reaction Status Date / Time aspirin AdvReac Intermediate CONTRAINDICATED Verified 05/28/23 07:09 R/T GASTRIC BYPASS ibuprofen AdvReac Intermediate nausea/PT Verified 05/28/23 07:09 STATES SHE GETS NO PAIN RELIEF Home Medications Medication Instructions Recorded Confirmed Type losartan 50 mg tablet 50 mg PO QAM 06/07/21 05/28/23 History eptgrupy-xvccifq-ycdx-iron 18 1 tablet PO DAILY 06/07/21 05/28/23 History mg-FA 400 mcg-vit K 25 mcg tablet (One-A-Day Women's Complete(with vit K)) atorvastatin 40 mg tablet 40 mg PO DAILY 08/07/21 05/28/23 History cyanocobalamin (vitamin B-12) 500 1,000 mcg PO DAILY 08/07/21 05/28/23 History mcg tablet acetaminophen 500 mg tablet 500 mg PO PRN PRN pain 01/18/22 05/28/23 History (Tylenol Extra Strength) calcium carb-Ca gluc 500 mg 1 tablet PO DAILY 05/12/23 05/28/23 History calcium-magnesium ox-Mg gluc 250 mg tablet (Calcium Magnesium) cholecalciferol (vitamin D3) 25 25 mcg PO DAILY 05/12/23 05/28/23 History mcg (1,000 unit) tablet tramadol 50 mg tablet 50 mg PO Q6-8H PRN pain #30 tabs 05/13/23 05/28/23 Rx Patient hx anesthesia problems: none Family hx anesthesia problems: none Results Review: All pre-operative results and documents have been reviewed as part of the pre-operative evaluation. 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 DJD (degenerative joint disease), lumbar History of stroke HTN (hypertension) Hyperlipidemia Left shoulder pain ERVIN (obstructive sleep apnea) Osteoarthritis Smoking Wears glasses Surgical History Surgical History (Updated 05/27/23 @ 14:58 by Jose Alfredo Bonner DO) History of gastric bypass 2014 S/P left rotator cuff repair DOS 02/27/22 S/P total hip arthroplasty Family History Family History Other Cerebrovascular accident Diabetes mellitus Family history of arthritis Family history of cardiovascular disease Family history of seizure disorder Hypertension Social History Social History Smoking packs per day: 0.5 Smoking cigarettes per day: 10.0 Years smoked: 50 Smoking pack-years: 25.00 Smoking status: Former smoker Tobacco type: cigarettes Smoking end date: 02/17/22 Additional smoking assessment comments: DENIES ANY FROM OF TOBACCO USE Alcohol intake: current Drinks per week: 4 Alcohol use details: BEERS Substance use: never Substance use type: does not use Living arrangements: alone Additional living arrangements comments: BOYFRIEND Spiritual care concerns: No Anes - Eval Final PreProcedure Day of Procedure 05/27/23 14:58 Patient weight: normal Heart: regular rate and rhythm Lungs: clear to auscultation Airway: Mallampati scale class II Neurological: alert and oriented Last oral intake: >/= 8 hours ASA classification: III Emergent: no Anesthetic plan: proceed Anesthesia type and monitoring: general LMA and standard monitoring Results Review: All pre-operative results and documents have been reviewed as part of the pre-operative evaluat
[2023-05-28] VITALS (13 sets, daily range): BP systolic 112–179; BP diastolic 50–74; PULSE 52–100; RESP 12–18; TEMP 35.6–37.1; O2SAT 93–100
[2023-05-28] MEDS: LACTATED RINGERS 1,000 ML 30 ML IV CONT ×2 (06:45→09:46)
[2023-05-28] MEDS: TRANEXAMIC ACID 1,000MG/ISO100 1,000 MG/100 ML BAG 200 MG IVPB (06:56)
[2023-05-28] MEDS: ACETAMINOPHEN 500 MG TABLET 1000 MG PO (06:57)
--- NOTE | 2023-05-28 07:18 | WPDHPUPDATE1 ---
History and Physical Update Update Date/Time: 05/28/23 07:18 History and Physical has been reviewed, including an updated exam of the patient. There are NO changes in the patient's condition. Risks, benefits, and alternatives have been discussed and questions answered. Patient agrees to proceed with procedure.
[2023-05-28] MEDS: ceFAZolin 2 GM/D5W 50 ML 2 GM/50 ML BAG IVPB ×3 (07:30→23:47)
--- NOTE | 2023-05-28 07:31 | WPDANESPNB ---
Anes - Peripheral Nerve Block Date/Time: 05/28/23 07:31 I have discussed with the patient/family/POA the placement of a peripheral nerve block for post-operative pain management, including associated risks, benefits, complications, and side effects. Alternative methods of post-operative analgesia were detailed. Questions were solicited and answers provided to the satisfaction of the patient/family/POA. Time-Out: A pre-procedural Time-Out was completed immediately before starting the procedure and confirmed: Patient Identification, Site, Procedure, Patient Position and the Availability of Requisite Equipment. Clinical Indications: Acute post-operative pain management requested by the operative surgeon. Nerve Block Insertion Note Anes-nerve block: adductor canal right Patient position: supine Skin prep: chlorhexidine Needle: 22 gauge, stimulating, insulated echogenic needle. Needle length: 80 mm Technique: ultrasound Injectate: bupivacaine 0.5% with epi 5 mcg/ml (30cc - no epi) Observations: tolerated well Complications: none Procedure start time:: 723 Procedure end time:: 727
[2023-05-28] MEDS: GENTAMICIN BONE CEMENT REFOBACIN 1 EACH TOPICAL (08:08)
[2023-05-28] MEDS: TRANEXAMIC ACID 1,000 MG/10 ML AMPUL 1000 MG IV PUSH (08:52)
--- NOTE | 2023-05-28 09:43 | W.PM.PROC2 ---
Procedure Note - Detailed Date of Procedure 05/28/23 Pre-op Diagnosis right knee djd Post-op Diagnosis Same Procedure Performed R TKA Surgeon Slim Joaquin MD Anesthesia General Description of Procedure THE RIGHT KNEE WAS PREPPED AND DRAPED IN THE STERILE FASHION. THERE WAS A 10 DEGREE FLEXION CONTRACTURE. A MIDLINE SKIN INCISION WAS MADE. A MEDIAL PARAPATELLAR ARTHROTOMY WAS MADE. THE PATELLA WAS EVERTED. THERE WAS TRICOMPARTMENT DJD. THERE WAS MINIMAL PATELLA DJD. AN INTRAMEDULLARY BRIGIDA WAS PLACED IN THE FEMUR. A DISTAL FEMORAL CUT WAS MADE IN 5 DEGREES OF VALGUS REMOVING APPROXIMATELY 9 MM OF BONE FROM THE DISTAL FEMUR. THE FEMUR WAS SIZED TO 62.5. A 62.5 FEMORAL CUTTING BLOCK WAS PLACED IN 3 DEGREES OF EXTERNAL ROTATION AND IN ALIGNMENT WITH LENY'S LINE AND THE TRANSEPICONDYLAR AXIS. ANTERIOR POSTERIOR AND CHAMFER CUTS WERE MADE. THE CUTS WERE EXCELLENT. NEXT AN INTRAMEDULLARY CUTTING GUIDE WAS PLACED IN THE TIBIA. A TRANS TIBIAL CUT WAS MADE ALONG THE LONG AXIS OF THE TIBIA. APPROXIMATELY 10 MM OF BONE WAS REMOVED FROM THE HIGH SIDE OF THE TIBIA. THE TIBIA WAS THEN PLANED TO A SMOOTH SURFACE. POSTERIOR FEMORAL OSTEOPHYTES WERE REMOVED FROM THE FEMORAL CONDYLES. A 71 TIBIAL TRIAL WAS PLACED IN ALIGNMENT WITH THE 1/3 MEDIAL ASPECT OF THE TIBIAL TUBERCLE. THEN A 62.5 FEMORAL TRIAL COMPONENT WAS PLACED. BOTH HAD EXCELLENT FITS. EVENTUALLY AN 11 MM CR POLYETHYLENE TRIAL COMPONENT WAS PLACED. THE KNEE WAS TAKEN THROUGH A RANGE OF MOTION. THE KNEE CAME OUT TO FULL EXTENSION. THERE WAS NO ABNORMAL TILT TO THE PATELLA. THERE WAS GOOD A/P AND VARUS/VALGUS STABILITY. THERE WAS NO EXCESSIVE ROLL BACK WITH FLEXION. THE TRIAL COMPONENTS WERE REMOVED. THEN A 62.5 FEMORAL COMPONENT AND 71 TIBIAL COMPONENT WITH AN 11 CR POLYETHYLENE COMPONENT WERE CEMENTED INTO PLACE. ONCE THE CEMENT WAS HARD THE KNEE WAS TAKEN THROUGH A ROM AGAIN AND FOUND TO BE STABLE WITH NO PATELLA TILT NO EXCESSIVE ROLL BACK WITH FLEXION AND GOOD STABILITY WITH COMPLETE AND FULL EXTENSION. THE KNEE WAS IRRIGATED WITH STERILE BETADINE AND WATER FOR ABOUT 3 MINUTES. THE BLEEDERS WERE CAUTERIZED. THE ARTHROTOMY WAS REPAIRED WITH NUMBER 1 VICRYL. THE SUB CUTANEOUS LAYER WITH 2-0 VICRYL AND THE SKIN WITH MIRELA. THE WOUND WAS WASHED AND A STERILE DRESSING WAS APPLIED. PATIENT WAS EXTUBATED. Estimated Blood Loss -150.0 Pathology None sent Complications No immediate complications Condition Stable Disposition PACU
[2023-05-28] MEDS: fentaNYL CITRATE INJ (*CRX) 100 MCG/2 ML VIAL 25 MCG IV PUSH ×7 (09:50→10:25)
--- NOTE | 2023-05-28 11:53 | PC.NURSE ---
This patient, Gayathri Kim, was admitted to 3 [facility] Surg Room 330-01 ON 05/28/23 @ 1115. Patient/family oriented to hospital policies and general routines including ID bracelet, bed and alarms, visiting hours, pain management, procedures, bathroom and other care routines, personal items, smoking policy, room service/diet, and visiting hours. Information on how to activate the Rapid Response Team has been discussed. Patient/Family are encouraged to report perceived risks to care and to ask questions if they do not understand what they are told or what they should do.
[2023-05-28] MEDS: oxyCODONE/ACETAMINOPHEN (*CRX) 5-325 MG TABLET 2 TABLET PO ×2 (11:58→18:37)
[2023-05-28] MEDS: diazePAM (*CRX) 5 MG TABLET PO (15:15)
--- NOTE | 2023-05-28 15:57 | PCPTNOTE ---
On 05/28/23, the student, PASCALE Garcia, provided care and completed [facility] documentation on this patient. I have reviewed the student's documentation and agree with the findings.
[2023-05-28] MEDS: RIVAROXABAN 10 MG TABLET PO (16:33)
--- NOTE | 2023-05-28 18:58 | PC.NURSE ---
On 05/28/23, the MARKETING TECHNOLOGY COORDINATOR, Olivia Plata, provided care and completed [employer] documentation on this patient. I have reviewed the MARKETING TECHNOLOGY COORDINATOR's documentation and agree with the findings.
[2023-05-28] MEDS: FAMOTIDINE 20 MG TABLET PO (20:27)
[2023-05-28] MEDS: diphenhydrAMINE HCl INJ 50 MG/ML VIAL 25 MG IV PUSH (20:43)
--- NOTE | ~2023-05-29 | XR_ITS ---
EXAMINATION: [id number] DATE: 05/28/2023 09:56 INDICATION: Postoperative evaluation following right total knee arthroplasty. TECHNIQUE: Anteroposterior and lateral views of the right knee were obtained. COMPARISON: None. FINDINGS: Right total knee arthroplasty without patellar resurfacing appears well seated and in near anatomic a lignment. No fractures identified. Skin zee anterior to the knee. Expected postoperative subcuta neous comment intramedullary and intra-articular gas. IMPRESSION: 1. Right total knee arthroplasty, negative for postoperative purposes. Reviewed, dictated and finalized at location A.
[2023-05-29] MEDS: oxyCODONE/ACETAMINOPHEN (*CRX) 5-325 MG TABLET 2 TABLET PO ×4 (00:21→19:53)
[2023-05-29 00:33] VITALS: BP 122/44; PULSE 65; RESP 18; TEMP 36.3; O2SAT 100
[2023-05-29 04:33] VITALS: BP 107/45; PULSE 54; RESP 16; TEMP 36.7; O2SAT 99
[2023-05-29 08:00] LABS: Anion Gap 0 mmol/L (8-16); Blood Urea Nitrogen 12 mg/dL (7-17); Calcium 9.1 mg/dL (8.4-10.2); Carbon Dioxide 32 mmol/L (22-30); Chloride 98 mmol/L (98-107); Estimated CRCL calculation 71 ml/min; Estimated Glomerular Filt Rate > 60; Glucose 96 mg/dL (65-110); Potassium 3.6 mmol/L (3.4-5.0); Sodium 130 mmol/L (137-145)
[2023-05-29 08:04] LABS: Basophils Absolute Auto 0.1 K/mm3 (0.0-0.1); Basophils Percent Auto 0.8 % (0.2-1.2); Eosinophils Percent Auto 0.5 % (0-4.4); Hematocrit 32.6 % (37.0-47.0); Hemoglobin 10.6 g/dL (12.0-15.0); Immature Granulocyte Absolute 0.01 K/mm3 (0.00-0.031); Immature Granulocyte Percent A 0.2 % (0-0.5); Lymphocytes Absolute Auto 1.72 K/mm3 (0.9-3.2); Mean Corpuscular HGB Conc 32.5 g/dl (32-36); Mean Corpuscular Hemoglobin 32.7 pg (26-34); Mean Corpuscular Volume 100.6 fl (80-100); Mean Platelet Volume 10.1 fl (7.4-10.4); Monocytes Absolute Auto 1.2 K/mm3 (0.1-0.6); Neutrophils Absolute Auto 3.4 K/mm3 (1.3-6.7); Neutrophils Percent Auto 53.5 % (45.5-73.1); Platelet Count Result 171 k/mm3 (150-375); Red Blood Count 3.24 M/mm3 (4.2-5.4); Red Cell Distribution Width 11.9 % (11.5-14.5); White Blood Count 6.4 K/mm3 (4.5-10.0)
--- NOTE | 2023-05-29 08:33 | PCPTNOTE ---
Attempted to see patient for PT, however patient was eating breakfast.
[2023-05-29 09:01] VITALS: BP 92/40; PULSE 71; O2SAT 100
[2023-05-29] MEDS: SODIUM CHLORIDE 0.9% IV 500 ML 999 ML IV CONT (09:21)
--- NOTE | 2023-05-29 09:24 | WPDANESPN ---
Anes - Prog Note Post-Op Date/Time: 05/29/23 09:24 Cardiovascular status: normal Respiratory status: normal Airway patency: baseline Mental status: baseline Post-Op hydration status: normal Vital Signs: Last Vital Signs Temp 36.7 C 05/29/23 04:33 Pulse 71 05/29/23 09:01 Resp 16 05/29/23 04:33 BP 92/40 L 05/29/23 09:01 Pulse Ox 100 05/29/23 09:01 O2 Del Method Room Air 05/28/23 20:00 O2 Flow Rate 6 05/28/23 10:00 Pain Score (VAS): 3 I/O: Intake & Output 05/28/23 05/29/23 05/29/23 23:59 07:59 15:59 Intake Total 1440 650 240 Output Total 200 Balance 1240 650 240 Laboratory Tests 05/29/23 07:27 05/29/23 07:27 05/29/23 07:27 WBC 6.4 RBC 3.24 L Hgb 10.6 L D Hct 32.6 L MCV 100.6 H MCH 32.7 MCHC 32.5 RDW 11.9 Plt Count 171 MPV 10.1 Immature Gran % (Auto) 0.2 Neut % (Auto) 53.5 Lymph % (Auto) 27.0 [place] % (Auto) 18.0 H Eos % (Auto) 0.5 Baso % (Auto) 0.8 Lymph # (Auto) 1.72 [place] # (Auto) 1.2 H Eos # (Auto) 0.0 Baso # (Auto) 0.1 Abs Immat Gran (auto) 0.01 Absolute Neuts (auto) 3.4 Absolute Nucleated RBC 0.0 Nucleated RBC % 0.0 Sodium 130 L Potassium 3.6 Chloride 98 Carbon Dioxide 32 H Anion Gap 0 L BUN 12 Creatinine 0.50 L Estim Creat Clear Calc 71 Estimated GFR > 60 Glucose 96 Calcium 9.1 Post-procedural complaints: none Patient Feedback: Patient satisfied with anesthetic care.
[2023-05-29] MEDS: polyethylene glycoL 3350 17 GM POWD.PACK PO (09:30)
[2023-05-29] MEDS: ATORVASTATIN 40 MG TABLET PO (09:30)
[2023-05-29] MEDS: CYANOCOBALAMIN 1,000 MCG TABLET 1000 MCG PO (09:30)
[2023-05-29] MEDS: FAMOTIDINE 20 MG TABLET PO ×2 (09:30→20:25)
[2023-05-29] MEDS: CHOLECALCIFEROL 1,000 UNITS TABLET 1000 UNITS PO (09:30)
--- NOTE | 2023-05-29 09:38 | PCPTNOTE ---
Attempted to see patient for PT, however RN advised not to see patient. Per RN patient had low blood pressure and was getting IV fluid at this time. Patient had dizziness earlier.
[2023-05-29 10:05] VITALS: BP 121/62; PULSE 74; RESP 12; TEMP 35.7; O2SAT 98
[2023-05-29] MEDS: ceFAZolin 2 GM/D5W 50 ML 2 GM/50 ML BAG IVPB (10:25)
[2023-05-29 14:10] VITALS: BP 113/64; PULSE 70; RESP 12; TEMP 36.9; O2SAT 99
[2023-05-29] MEDS: oxyCODONE/ACETAMINOPHEN (*CRX) 5-325 MG TABLET 1 TABLET PO (14:48)
[2023-05-29] MEDS: diazePAM (*CRX) 5 MG TABLET PO (17:04)
--- NOTE | 2023-05-29 17:22 | PM.PNORT ---
Progress Note: A&P Assessment and Plan (1) DJD (degenerative joint disease) of knee: Code(s): M17.9 - Osteoarthritis of knee, unspecified Status: Acute Assessment and Plan: POD 1 DOING WELL. SHE WILL CONTINUE WITH PT. SHE WILL MOST LIKELY BE DISCHARGED HOME TMRW Subjective Subjective Date/Time Seen: 05/29/23 17:22 Interval history: POD 1 DOING WELL. HAD MILD HYPOTENSIVE EPISODE THIS AM. SINCE THEN IT HAS RESOLVED. NO CP OR SOB Exam Extrem: Other: VSS AFEBRILE DRESSING DRY NV INTACT NEG HOMANS SIGN Objective Data Vital Signs Vital Signs: Vital Signs - 24 hr 05/28/23 18:00 05/28/23 20:00 05/28/23 20:33 Temperature 35.6 C L Pulse Rate 75 62 Respiratory Rate 16 16 16 Blood Pressure 112/50 L Pulse Oximetry 97 100 Oxygen Delivery Room Air 05/29/23 00:33 05/29/23 04:33 05/29/23 09:01 Temperature 36.3 C L 36.7 C Pulse Rate 65 54 L 71 Respiratory Rate 18 16 Blood Pressure 122/44 L 107/45 L 92/40 L Pulse Oximetry 100 99 100 Oxygen Delivery 05/29/23 10:05 05/29/23 14:10 Temperature 35.7 C L 36.9 C Pulse Rate 74 70 Respiratory Rate 12 12 Blood Pressure 121/62 113/64 Pulse Oximetry 98 99 Oxygen Delivery Intake/Output Intake/Output: Intake & Output 05/26/23 05/27/23 05/28/23 05/29/23 23:59 23:59 23:59 23:59 Intake Total 2230 1130 Output Total 200 Balance 2030 1130 Meds/Results Medications: Active Medications Generic Name Dose Route Start Last Admin Trade Name Freq PRN Reason Stop Dose Admin Acetaminophen 1,000 mg 05/28/23 10:48 Acetaminophen 500 Mg Tablet PO Q6H PRN Pain Rated 1-3 Atorvastatin Calcium 40 mg 05/29/23 09:00 05/29/23 09:30 Atorvastatin 40 Mg Tablet PO 40 mg DAILY SERG Administration Cyanocobalamin 1,000 mcg 05/29/23 09:00 05/29/23 09:30 Cyanocobalamin 1,000 Mcg Tablet PO 1,000 mcg DAILY SERG Administration Diazepam 5 mg 05/28/23 10:48 05/29/23 17:04 Diazepam (*Crx) 5 Mg Tablet PO 5 mg Q8H PRN Administration Spasms Diphenhydramine HCl 25 mg 05/28/23 10:48 05/28/23 20:43 Diphenhydramine Hcl Inj 50 Mg/Ml Vial IV PUSH 25 mg Q6H PRN Administration Itching Famotidine 20 mg 05/28/23 21:00 05/29/23 09:30 Famotidine 20 Mg Tablet PO 20 mg Q12HR SERG Administration Losartan Potassium 50 mg 05/29/23 09:00 05/29/23 09:30 Losartan Potassium 50 Mg Tablet PO Not Given QAM SERG Naloxone HCl 0.1 mg 05/28/23 10:48 Naloxone Hcl 0.4 Mg/Ml Vial IV PUSH Q2M PRN Opiate Reversal Non-Formulary Medication 1 tablet 05/29/23 09:00 Ca Carb-Ca Gluc-Mg Ox-Mg Gluco [Calcium Magnesium] PO 06/28/23 08:59 DAILY SERG Ondansetron HCl 4 mg 05/28/23 10:48 Ondansetron Inj 4 Mg/2 Ml Vial IV PUSH Q4H PRN Nausea And Vomiting Oxycodone/Acetaminophen 1 tablet 05/28/23 10:48 05/29/23 14:48 Oxycodone/Acetaminophen (*Crx) 5-325 Mg Tablet PO 1 tablet Q4H PRN Administration Pain Rated 4-6 Oxycodone/Acetaminophen 2 tablet 05/28/23 10:48 05/29/23 11:53 Oxycodone/Acetaminophen (*Crx) 5-325 Mg Tablet PO 2 tablet Q6H PRN Administration Pain Rated 7-10 Polyethylene Glycol 17 gm 05/29/23 09:00 05/29/23 09:30 Polyethylene Glycol 3350 17 Gm Powd.Pack PO 17 gm QAM SERG Administration Rivaroxaban 10 mg 05/28/23 17:00 05/28/23 16:33 Rivaroxaban 10 Mg Tablet PO 06/08/23 17:01 10 mg DAILY@17 SERG Administration Vitamin D 1,000 units 05/29/23 09:00 05/29/23 09:30 Cholecalciferol 1,000 Units Tablet PO 1,000 units DAILY SERG Administration Radiology Results: ITS Impressions Knee X-Ray 05/28/23 10:05 IMPRESSION: 1. Right total knee arthroplasty, negative for postoperative purposes. Labs Labs: Laboratory Results - last 24 hr 05/29/23 07:27 WBC 6.4 RBC 3.24 L Hgb 10.6 L D Hct 32.6 L MCV 100.6 H MCH 32.7 MCHC 32.5 RDW 11.9 Plt Count 171 MPV 1
[2023-05-29] MEDS: RIVAROXABAN 10 MG TABLET PO (17:55)
--- NOTE | 2023-05-29 18:09 | PC.NURSE ---
On 05/29/23, the BITUMINOUS PAVING MACHINE OPERATOR, Olivia Plata, provided care and completed [employer] documentation on this patient. I have reviewed the BITUMINOUS PAVING MACHINE OPERATOR's documentation and agree with the findings.
[2023-05-29 22:00] VITALS: BP 124/55; PULSE 81; RESP 16; TEMP 36.9; O2SAT 97
[2023-05-30 01:30] VITALS: BP 140/50; PULSE 78; RESP 16; TEMP 38.2; O2SAT 98
[2023-05-30] MEDS: oxyCODONE/ACETAMINOPHEN (*CRX) 5-325 MG TABLET 2 TABLET PO ×2 (01:59→08:42)
[2023-05-30 05:00] VITALS: BP 107/65; PULSE 76; RESP 16; TEMP 35.7; O2SAT 98
[2023-05-30] MEDS: diazePAM (*CRX) 5 MG TABLET PO (05:58)
--- NOTE | 2023-05-30 08:32 | PCPTNOTE ---
Patient refused treatment this session due to right knee pain. RN aware and going to give patient pain medication.
[2023-05-30] MEDS: CYANOCOBALAMIN 1,000 MCG TABLET 1000 MCG PO (08:43)
[2023-05-30] MEDS: ATORVASTATIN 40 MG TABLET PO (08:43)
[2023-05-30] MEDS: LOSARTAN POTASSIUM 50 MG TABLET PO (08:43)
[2023-05-30] MEDS: CHOLECALCIFEROL 1,000 UNITS TABLET 1000 UNITS PO (08:43)
[2023-05-30] MEDS: polyethylene glycoL 3350 17 GM POWD.PACK PO (08:43)
[2023-05-30] MEDS: FAMOTIDINE 20 MG TABLET PO (08:43)
[2023-05-30] MEDS: oxyCODONE/ACETAMINOPHEN (*CRX) 5-325 MG TABLET 1 TABLET PO (12:44)
--- NOTE | 2023-05-30 12:46 | PM.PNORT ---
Progress Note: A&P Assessment and Plan (1) DJD (degenerative joint disease) of knee: Code(s): M17.9 - Osteoarthritis of knee, unspecified Status: Acute Assessment and Plan: POD 2 DOING WELL. OK TO DC HOME F/U IN 3 WEEKS Subjective Subjective Date/Time Seen: 05/30/23 12:46 Interval history: POD 2 DOING WELL. GOOD PROGRESS WITH PT Exam Extrem: Other: VSS AFEBRILE DRESSING DRY NV INTACT NEG HOMANS SIGN THIGH AND CALF SOFT NON TENDER Objective Data Vital Signs Vital Signs: Vital Signs - 24 hr 05/29/23 14:10 05/29/23 22:00 05/30/23 01:30 Temperature 36.9 C 36.9 C 38.2 C H Pulse Rate 70 81 78 Respiratory Rate 12 16 16 Blood Pressure 113/64 124/55 L 140/50 L Pulse Oximetry 99 97 98 Oxygen Delivery 05/30/23 05:00 05/30/23 08:45 Temperature 35.7 C L Pulse Rate 76 Respiratory Rate 16 Blood Pressure 107/65 Pulse Oximetry 98 Oxygen Delivery Room Air Intake/Output Intake/Output: Intake & Output 05/27/23 05/28/23 05/29/23 05/30/23 23:59 23:59 23:59 23:59 Intake Total 2230 2180 1340 Output Total 200 Balance 2030 2180 1340 Meds/Results Medications: Active Medications Generic Name Dose Route Start Last Admin Trade Name Freq PRN Reason Stop Dose Admin Acetaminophen 1,000 mg 05/28/23 10:48 Acetaminophen 500 Mg Tablet PO Q6H PRN Pain Rated 1-3 Atorvastatin Calcium 40 mg 05/29/23 09:00 05/30/23 08:43 Atorvastatin 40 Mg Tablet PO 40 mg DAILY SERG Administration Cyanocobalamin 1,000 mcg 05/29/23 09:00 05/30/23 08:43 Cyanocobalamin 1,000 Mcg Tablet PO 1,000 mcg DAILY SERG Administration Diazepam 5 mg 05/28/23 10:48 05/30/23 05:58 Diazepam (*Crx) 5 Mg Tablet PO 5 mg Q8H PRN Administration Spasms Diphenhydramine HCl 25 mg 05/28/23 10:48 05/28/23 20:43 Diphenhydramine Hcl Inj 50 Mg/Ml Vial IV PUSH 25 mg Q6H PRN Administration Itching Famotidine 20 mg 05/28/23 21:00 05/30/23 08:43 Famotidine 20 Mg Tablet PO 20 mg Q12HR SERG Administration Losartan Potassium 50 mg 05/29/23 09:00 05/30/23 08:43 Losartan Potassium 50 Mg Tablet PO 50 mg QAM SERG Administration Naloxone HCl 0.1 mg 05/28/23 10:48 Naloxone Hcl 0.4 Mg/Ml Vial IV PUSH Q2M PRN Opiate Reversal Non-Formulary Medication 1 tablet 05/29/23 09:00 Ca Carb-Ca Gluc-Mg Ox-Mg Gluco [Calcium Magnesium] PO 06/28/23 08:59 DAILY SERG Ondansetron HCl 4 mg 05/28/23 10:48 Ondansetron Inj 4 Mg/2 Ml Vial IV PUSH Q4H PRN Nausea And Vomiting Oxycodone/Acetaminophen 1 tablet 05/28/23 10:48 05/30/23 12:44 Oxycodone/Acetaminophen (*Crx) 5-325 Mg Tablet PO 1 tablet Q4H PRN Administration Pain Rated 4-6 Oxycodone/Acetaminophen 2 tablet 05/28/23 10:48 05/30/23 08:42 Oxycodone/Acetaminophen (*Crx) 5-325 Mg Tablet PO 2 tablet Q6H PRN Administration Pain Rated 7-10 Polyethylene Glycol 17 gm 05/29/23 09:00 05/30/23 08:43 Polyethylene Glycol 3350 17 Gm Powd.Pack PO 17 gm QAM SERG Administration Rivaroxaban 10 mg 05/28/23 17:00 05/29/23 17:55 Rivaroxaban 10 Mg Tablet PO 06/08/23 17:01 10 mg DAILY@17 SERG Administration Vitamin D 1,000 units 05/29/23 09:00 05/30/23 08:43 Cholecalciferol 1,000 Units Tablet PO 1,000 units DAILY SERG Administration Radiology Results: ITS Impressions Knee X-Ray 05/28/23 10:05 IMPRESSION: 1. Right total knee arthroplasty, negative for postoperative purposes.
--- NOTE | 2023-05-30 12:48 | PM.DS ---
DS: Admitting Diagnosis Discharge Date Admitting Diagnosis R KNEE DJD DS: Discharge Diagnosis Discharge Diagnosis (1) DJD (degenerative joint disease) of knee: Code(s): M17.9 - Osteoarthritis of knee, unspecified Status: Acute DS: Summary Hospital Course Reason for hospitalization: R TKA Hospital Course: PATIENT WAS ADMITTED S/P TOTAL KNEE ARTHROPLASTY FOR POSTOPERATIVE MEDICAL MANAGEMENT, PAIN CONTROL AND MOBILIZATION WITH PHYSICAL AND OCCUPATIONAL THERAPY. THE PATIENT PROGRESSED WELL WITH PT/OT. LABS AND VITALS REMAINED STABLE AND PAIN WELL CONTROLLED. THE PATIENT HAS BEEN CLEARED TO BE DISCHARGED HOME. FOLLOW UP APPOINTMENT SCHEDULED. DISCHARGE INSTRUCTIONS DISCUSSED AT LENGTH WITH THE PATIENT. MEDICATIONS REVIEWED. Status at Discharge Cognitive/behavioral status at discharge: STABLE Functional status at discharge: uses cane/walker Time Spent with Patient Time attestation: Total time spent providing and/or coordinating discharge services: DS: Data Procedures/Treatments: R TKA Discharge Plan Discharge Attending physician on discharge: Slim Joaquin Discharging Clinician: Slim Joaquin Patient Disposition: Home Health Service Activity: may shower, no driving and follow weight bearing status Diet: as tolerated Wound Care Instructions: keep dressing dry Discharge Instructions: Post Op Total Knee Replacement Instructions Dr. Slim Joaquin [phone] Your dressing will be changed prior to your discharge. You will be sent home with one additional dressing to be changed on post op day 7 by the home health RN. Your zee will be removed on the 14th day after surgery and steri-strips will be placed. Please practice good hand hygiene and do not touch your incision in order to prevent infection. You may shower with your dressing but do not submerge in a bath tub. Do not drive or operate machinery until you are released by Dr. Joaquin. Do not walk without a walker for any reason until you are released by Dr. Joaquin. Continue to use your ice machine. Please use a towel or pillow case to protect your skin before applying your ice machine. Do NOT place a pillow under your knee. You may use a pillow from the calf down if needed. This will prevent a flexion contracture postoperatively. You may begin use of your CPM machine at home if you have been given one pre-operatively. DO NOT USE WHILE YOU ARE SLEEPING. Your first post op appointment was sent to you via mail preoperatively. If you have any questions or are unable to make your appointment, please contact our office for scheduling questions. Your medications have been sent to your pharmacy. You have been sent home with pain medication. Please order picker/assembler an over the counter stool softener to prevent constipation due to narcotic use. Please keep this in mind during your postoperative recovery. If you are not experiencing regular bowel movements, please contact our office for further instruction. DVT prophylaxis post operatively. Please contact our office with any questions/concerns regarding your knee at [phone]. Per Care Coordination Patient has been accepted to have [facility] for RN, PT, OT [phone] Patient Instructions: Antibiotic Form, Precautions after Total Joint Replacement Surgery (DC) Stand Alone Forms: General Discharge Information Follow-up/Referrals: Slim Joaquin MD [Physician] - 06/23/23 9:15 am Discharge Medications: New oxycodone-acetaminophen [Percocet] 7.5-325 mg tablet 1 tablet PO Q6H PRN (Reason: pain) Qty: 30 0RF Continued losartan 50 mg tablet 50 mg PO QAM One-A-Day Women's Complete(vK) 18 mg-400 mcg- 25 mcg tablet 1 tablet PO DAILY acetaminophen [Tylenol Extra Strength] 500 mg tablet 500 mg PO PRN PRN (Reason: pain) tramadol 50 mg tablet 50 mg PO Q6-8H PRN (Reason: pain) Qty: 30 0RF atorvastatin 40 mg tablet 40 mg PO DAILY cyano
--- NOTE | 2023-05-30 13:30 | PCPTNOTE ---
Attempted to see patient for PT, however patient refused due to anticipated discharge. Patient reported she will do her knee exercises once home this evening.
== END 2023-05-30 14:00 | disposition home health service (06) ==
LOC: ANHSURGERY 13:13 → ANH3MEDSUR 13:13
PROVIDERS: Admitting Provider Orthopaedic Surgery; PCP Emergency Medicine; Visit Provider Orthopaedic Surgery
PROC: (CPT 27447; principal; 2023-05-28 07:30)
DX: M17.11 Unilateral primary osteoarthritis, right knee (principal); G89.18 Other acute postprocedural pain; I10 Essential (primary) hypertension; M16.0 Bilateral primary osteoarthritis of hip; M47.816 Spondylosis without myelopathy or radiculopathy, lumbar region; D64.9 Anemia, unspecified; E78.5 Hyperlipidemia, unspecified; E87.1 Hypo-osmolality and hyponatremia; G47.33 Obstructive sleep apnea (adult) (pediatric); R79.89 Other specified abnormal findings of blood chemistry; Z98.84 Bariatric surgery status; Z79.891 Long term (current) use of opiate analgesic; F10.90 Alcohol use, unspecified, uncomplicated; Z87.891 Personal history of nicotine dependence; Z79.899 Other long term (current) drug therapy; Z86.73 Personal history of transient ischemic attack (TIA), and cerebral infarction without residual deficits
CPT/HCPCS: 27447; 64447; 36415; 73560; 80048; 80307; 81001; 82040; 83036; 85025; 85610; 85730; 86850; 86900; 86901; 87081; 97110; 97116; 97161; 97165; 97530; 97535; A9270; C1713; C1776; G0378; J0171; J0690; J1100; J1200; J2250; J2270; J2405; J2704; J2795; J3010; J7030; J7120

== ENCOUNTER 2023-07-08 11:24 | Outpatient (CLI) | payer MEDICARE, OTHER, SELFPAY ==
[2023-07-08 12:11] LABS: Basophils Absolute Auto 0.1 K/mm3 (0.0-0.1); Basophils Percent Auto 0.8 % (0.2-1.2); Eosinophils Absolute Auto 0.1 K/mm3 (0-0.3); Eosinophils Percent Auto 0.8 % (0-4.4); Hematocrit 37.2 % (37.0-47.0); Hemoglobin 12.2 g/dL (12.0-15.0); Immature Granulocyte Absolute 0.03 K/mm3 (0.00-0.031); Immature Granulocyte Percent A 0.5 % (0-0.5); Lymphocytes Absolute Auto 1.57 K/mm3 (0.9-3.2); Lymphocytes Percent Auto 24.7 % (18.3-44.2); Mean Corpuscular HGB Conc 32.8 g/dl (32-36); Mean Corpuscular Hemoglobin 32.3 pg (26-34); Mean Corpuscular Volume 98.4 fl (80-100); Mean Platelet Volume 8.9 fl (7.4-10.4); Monocytes Absolute Auto 0.6 K/mm3 (0.1-0.6); Monocytes Percent Auto 9.1 % (2.6-8.5); Neutrophils Absolute Auto 4.1 K/mm3 (1.3-6.7); Neutrophils Percent Auto 64.1 % (45.5-73.1); Nucleated Red Blood Cells Perc 0.3 % (0.0-0.2); Platelet Count Result 287 k/mm3 (150-375); Red Blood Count 3.78 M/mm3 (4.2-5.4); Red Cell Distribution Width 12.9 % (11.5-14.5); White Blood Count 6.4 K/mm3 (4.5-10.0)
[2023-07-08 12:13] LABS: Appearance Urine Clear (Clear); Bacteria Urine Rare /hpf; Bilirubin Urine Negative (Negative); Color Urine Yellow (Yellow); Glucose Urine UA Negative (Negative); Ketones Urine Negative (Negative); Leukocyte Esterase Ur Negative LEU/UL (Negative); Nitrate Urine Negative (Negative); Non Pathogenic Casts 0-2; Protein Urine Negative (Negative); RBC Urine 0-2 /hpf (0-2); Specific Grav Ur 1.006 (1.001-1.035); Squamous Epithelial Cell Urine Moderate /hpf (Few); Urobilinogen Urine 0.2 mg/dL (<2.0); WBC Urine 0-5 /hpf
[2023-07-08 12:19] LABS: Urine Cotinine NEGATIVE
[2023-07-08 12:20] LABS: Anion Gap 6 mmol/L (8-16); Blood Urea Nitrogen 9 mg/dL (7-17); Carbon Dioxide 29 mmol/L (22-30); Chloride 95 mmol/L (98-107); Potassium 4.6 mmol/L (3.4-5.0); Sodium 130 mmol/L (137-145)
[2023-07-08 12:20] LABS: Add Urine Microscopic? YES
[2023-07-08 12:21] LABS: Albumin Level 4.4 g/dL (3.5-5.1); Calcium 9.5 mg/dL (8.4-10.2); Estimated Glomerular Filt Rate > 60; Glucose 94 mg/dL (65-110)
[2023-07-08 12:22] LABS: Prothrombin Time 13.2 Seconds (11.1-14.7)
== END 2023-07-08 11:25 | disposition home or self-care (01) ==
LOC: ANHSURGERY 11:29
PROVIDERS: PCP Emergency Medicine; Visit Provider Orthopaedic Surgery
DX: Z01.812 Encounter for preprocedural laboratory examination (principal); M17.9 Osteoarthritis of knee, unspecified
CPT/HCPCS: 80048; 80307; 81001; 82040; 85025; 85610; 85730; 86850; 86900; 86901; 87081

== ENCOUNTER 2023-07-11 09:56 | Outpatient (CLI) | payer MEDICARE, OTHER, SELFPAY ==
[2023-07-11 10:46] LABS: Sodium 136 mmol/L (137-145)
== END 2023-07-11 09:57 | disposition home or self-care (01) ==
LOC: ANHSURGERY 09:57
PROVIDERS: PCP Emergency Medicine; Visit Provider Orthopaedic Surgery
DX: R79.89 Other specified abnormal findings of blood chemistry (principal)
CPT/HCPCS: 36415; 84295

== ENCOUNTER 2023-07-16 14:13 | Observation (INO) | payer MEDICARE, OTHER, SELFPAY ==
[2023-07-07 15:42] VITALS: BMI 24.1
--- NOTE | 2023-07-07 15:46 | PC.NURSE ---
PRE-OP INSTRUCTIONS, PLEASE READ CAREFULLY Report to the Outpatient Waiting Room, entrance under the green pavilion located off [facility], at time _0830_ on date _07/15/23_. Planned Procedure Time: _1030_. PACK A SMALL OVERNIGHT BAG AND LEAVE IN THE CAR ALONG WITH YOUR WALKER Time changes happen often and if your time is changed the preop area will call you the afternoon before. - You and your visitor will be asked to self-screen and do not enter if you have any COVID symptoms. - A mask is optional within the hospital at this time. -VISITING HOURS 8AM-8PM Patients may have clear liquids (water, carbonated beverages, clear teas, apple juice) until 3 hours prior to surgery (0730 AM) with a maximum of 20 ounces. - No food from midnight until time of surgery Take the following medications with a SIP of water the morning of surgery: _TYLENOL, TRAMADOL IF NEEDED_ DO NOT STOP ANY OF YOUR OTHER PRESCRIPTION MEDICATIONS PRIOR TO SURGERY ?EXCEPT THE FOLLOWING Medications to discontinue per ANESTHESIA - _MULTIVITAMIN 3 DAYS PRIOR TO SURGERY, Date to take last dose 07/11/23_ Please no make-up, nail kyrgyz, hairspray, perfume, deodorant, or body powder the day of surgery. No jewelry (including any body piercings) or valuables the day of surgery, leave them at home. Please take a shower or bath the night before, or the morning of, surgery with an antibacterial soap. Wear comfortable, loose fitting clothing. - Jewelry must be removed prior to entering the operating room. Rings and piercings that are not removed may be cut off. - The hospital will not accept responsibility for valuables. - Please leave all valuables, including medications, at home the day of surgery. If you are going home after surgery, a licensed cab driver must drive you home. - NO public transportation without another adult if you receive anesthesia. - We recommend that an adult stay with you for 24 hours following discharge. - We also recommend that you do not drive, make important decision, drink alcoholic beverages, or take any drugs that were not prescribed by your health care provider for at least 24 hours after your discharge time. Follow any additional instructions given to you from your surgeon. If you or anyone in your household have experienced Covid symptoms in the past week, please notify your surgeon or the nurse liaison at the phone number below for possible testing. Telephone instructions given to _PATIENT_and asked if any additional questions and then verbalized understanding. Patient advised to call surgeon office or pre surgery nurse liaison [phone] if any additional questions.
[2023-07-15] VITALS (14 sets, daily range): BP systolic 130–168; BP diastolic 57–78; PULSE 56–81; RESP 14–26; TEMP 36.1–36.8; O2SAT 94–100
--- NOTE | 2023-07-15 07:25 | WPDHPUPDATE1 ---
History and Physical Update Update Date/Time: 07/15/23 07:25 History and Physical has been reviewed, including an updated exam of the patient. There are NO changes in the patient's condition. Risks, benefits, and alternatives have been discussed and questions answered. Patient agrees to proceed with procedure.
--- NOTE | 2023-07-15 09:23 | WPDANESEPPF ---
Anes - Initial Pre Proc Eval Procedure: Operation Date: 07/15/23 10:30 Proposed Procedures p Left Total Knee Arthroplasty - Slim Joaquin MD Date/Time: 07/15/23 09:23 Surgeon: Slim Joaquin MD Pre Op Diagnosis: Lt Knee DJD Patient Data Age: 67 Gender: F Height: 1.56 m Weight: 59 kg Allergies Allergy/AdvReac Type Severity Reaction Status Date / Time aspirin AdvReac Intermediate CONTRAINDICATED Verified 07/15/23 08:57 R/T GASTRIC BYPASS ibuprofen AdvReac Intermediate nausea/PT Verified 07/15/23 08:57 STATES SHE GETS NO PAIN RELIEF Home Medications Medication Instructions Recorded Confirmed Type losartan 50 mg tablet 50 mg PO QAM 06/07/21 07/15/23 History kcxausgp-znrjpgu-wwxk-iron 18 1 tablet PO DAILY 06/07/21 07/15/23 History mg-FA 400 mcg-vit K 25 mcg tablet (One-A-Day Women's Complete(with vit K)) atorvastatin 40 mg tablet 40 mg PO DAILY 08/07/21 07/15/23 History cyanocobalamin (vitamin B-12) 500 1,000 mcg PO DAILY 08/07/21 07/15/23 History mcg tablet acetaminophen 500 mg tablet 500 mg PO PRN PRN pain 01/18/22 07/15/23 History (Tylenol Extra Strength) calcium carb-Ca gluc 500 mg 1 tablet PO DAILY 05/12/23 07/15/23 History calcium-magnesium ox-Mg gluc 250 mg tablet (Calcium Magnesium) cholecalciferol (vitamin D3) 25 25 mcg PO DAILY 05/12/23 07/15/23 History mcg (1,000 unit) tablet tramadol 50 mg tablet 50 mg PO Q6H PRN pain 06/24/23 07/15/23 History Patient hx anesthesia problems: none Family hx anesthesia problems: none Results Review: All pre-operative results and documents have been reviewed as part of the pre-operative evaluation. 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 DJD (degenerative joint disease), lumbar History of stroke HTN (hypertension) Hyperlipidemia Left shoulder pain ERVIN (obstructive sleep apnea) Osteoarthritis Smoking Wears glasses Surgical History Surgical History History of gastric bypass 2013 S/P left rotator cuff repair DOS 02/27/22 S/P total hip arthroplasty Status post total right knee replacement 05/28/2023 Family History Family History Other Cerebrovascular accident Diabetes mellitus Family history of arthritis Family history of cardiovascular disease Family history of seizure disorder Hypertension Social History Social History Smoking packs per day: 0.5 Smoking cigarettes per day: 10.0 Years smoked: 50 Smoking pack-years: 25.00 Smoking status: Current every day smoker Tobacco type: cigarettes Second hand tobacco smoke exposure: Yes Smoking end date: 02/17/22 Additional smoking assessment comments: DENIES ANY FROM OF TOBACCO USE Alcohol intake: current Drinks per week: 4 Alcohol use details: BEERS Substance use: never Substance use type: marijuana Lack of Transportation: No Lack of Food: Never True Current Housing: I Have Housing Concerned About Future Housing: No Difficulty Paying Gas/Electric Bills: No Difficulty Paying for Meds: No Currently Unemployed: No Education: High School Diploma/GED Difficulty w/ Childcare or Family Care: No Living arrangements: alone Additional living arrangements comments: BOYFRIEND Spiritual care concerns: No Anes - Eval Final PreProcedure Day of Procedure 07/15/23 09:23 Patient weight: normal Heart: regular rate and rhythm Lungs: clear to auscultation Airway: Mallampati scale class II Neurological: alert and oriented Last oral intake: >/= 8 hours ASA classification: III Emergent: no Anesthetic plan: pro
[2023-07-15] MEDS: LACTATED RINGERS 1,000 ML 30 ML IV CONT ×2 (09:36→12:46)
[2023-07-15] MEDS: ACETAMINOPHEN 500 MG TABLET 1000 MG PO (09:59)
[2023-07-15] MEDS: TRANEXAMIC ACID 1,000MG/ISO100 1,000 MG/100 ML BAG 200 MG IVPB (09:59)
--- NOTE | 2023-07-15 10:36 | WPDANESPNB ---
Anes - Peripheral Nerve Block Date/Time: 07/15/23 10:36 I have discussed with the patient/family/POA the placement of a peripheral nerve block for post-operative pain management, including associated risks, benefits, complications, and side effects. Alternative methods of post-operative analgesia were detailed. Questions were solicited and answers provided to the satisfaction of the patient/family/POA. Time-Out: A pre-procedural Time-Out was completed immediately before starting the procedure and confirmed: Patient Identification, Site, Procedure, Patient Position and the Availability of Requisite Equipment. Clinical Indications: Acute post-operative pain management requested by the operative surgeon. Nerve Block Insertion Note Anes-nerve block: femoral left Patient position: supine Skin prep: chlorhexidine Needle: 22 gauge, stimulating, insulated echogenic needle. Needle length: 50 mm Technique: nerve stimulation lost at (mA) (0.45) Injectate: bupivacaine 0.5% with epi 5 mcg/ml (25cc no epi) Observations: tolerated well Complications: none Procedure start time:: 1025 Procedure end time:: 102
[2023-07-15] MEDS: ceFAZolin 2 GM/D5W 50 ML 2 GM/50 ML BAG IVPB ×2 (10:41→18:24)
--- NOTE | 2023-07-15 13:13 | P.OP_ITS ---
Procedure Note - Detailed Date of Procedure 07/15/23 Pre-op Diagnosis Lt Knee DJD Post-op Diagnosis Same Procedure Performed LEFT TKA Surgeon Slim Joaquin MD Anesthesia General Indications LEFT KNEE SEVERE DJD Description of Procedure THE LEFT KNEE WAS PREPPED AND DRAPED IN THE STERILE FASHION. THERE WAS A 10 DEGREE FLEXION CONTRACTURE.? A MIDLINE SKIN INCISION WAS MADE.? A MEDIAL PARAPATELLAR ARTHROTOMY WAS MADE.? THE PATELLA WAS EVERTED.? THERE WAS TRICO MPARTMENT DJD. THERE WAS MINIMAL PATELLA DJD.? AN INTRAMEDULLARY BRIGIDA WAS PLACED IN THE FEMUR.? A DISTAL FEMORAL CUT WAS MADE IN 5 DEGREES OF VALGUS REMOVING APPROXIMATELY 9 MM OF BONE FROM THE DISTAL FEMUR. THE FEMUR WAS SIZED TO 62.5.? A 62.5 FEMORAL CUTTING BLOCK WAS PLACED IN 3 DEGREES OF EXTERNAL ROTATION AND IN ALIGNMENT WITH LENY'S LINE AND THE TRANSEPICONDYLAR AXIS. ANTERIOR POSTERIOR AND CHAMFER CUTS WERE MADE.? THE CUTS WERE EXCELLENT.? NEXT AN INTRAMEDULLARY CUTTING GUIDE WAS PLACED IN THE TIBIA.? A TRANS TIBIAL CUT WAS MADE ALONG THE LONG AXIS OF THE TIBIA.? APPROXIMATELY 10 MM OF BONE WAS REMOVED FROM THE HIGH SIDE OF THE TIBIA. THE TIBIA WAS THEN PLANED TO A SMOOTH SURFACE.? POSTERIOR FEMORAL OSTEOPHYTES WERE REMOVED FROM THE FEMORAL CONDYLES.? A 71 TIBIAL TRIAL WAS PLACED IN ALIGNMENT WITH THE 1/3 MEDIAL ASPECT OF THE TIBIAL TUBERCLE.? THEN A 62.5 FEMORAL TRIAL COMPONENT WAS PLACED.? BOTH HAD EXCELLENT FITS.? EVENTUALLY AN 10 MM CR POLYETHYLENE TRIAL? COMPONENT WAS PLACED.? THE KNEE WAS TAKEN THROUGH A RANGE OF MOTION.? THE KNEE CAME OUT TO FULL EXTENSION.? THERE WAS NO ABNORMAL TILT TO THE PATELLA.? THERE WAS GOOD A/P AND VARUS/VALGUS STABILITY.? THERE WAS NO EXCESSIVE ROLL BACK WITH FLEXION.? THE TRIAL COMPONENTS WERE REMOVED. THEN A 62.5 FEMORAL COMPONENT AND 71 TIBIAL COMPONENT WITH AN 10 CR POLYETHYLENE COMPONENT WERE CEMENTED INTO PLACE.? ONCE THE CEMENT WAS HARD THE KNEE WAS TAKEN THROUGH A ROM AGAIN AND FOUND TO BE STABLE WITH NO PATELLA TILT NO EXCESSIVE ROLL BACK WITH FLEXION AND GOOD STABILITY WITH COMPLETE AND FULL EXTENSION.? THE KNEE WAS IRRIGATED WITH STERILE BETADINE AND WATER FOR ABOUT 3 MINUTES.? THE BLEEDERS WERE CAUTERIZED.? THE ARTHROTOMY WAS REPAIRED WITH NUMBER 1 VICRYL.? THE SUB CUTANEOUS LAYER WITH 2-0 VICRYL AND THE SKIN WITH MIRELA.? THE WOUND WAS WASHED AND A STERILE DRESSING WAS APPLIED.? PATIENT WAS EXTUBATED. Estimated Blood Loss -125.0 Drains No Packing No Complications No immediate complications Condition Stable Disposition PACU
[2023-07-15] MEDS: fentaNYL CITRATE INJ (*CRX) 100 MCG/2 ML VIAL 25 MCG IV PUSH ×5 (13:19→13:48)
[2023-07-15] MEDS: diphenhydrAMINE HCl INJ 50 MG/ML VIAL 12.5 MG IV PUSH ×2 (14:30→14:41)
--- NOTE | 2023-07-15 14:51 | ADMGEN ---
This patient, Gayathri Kim, was admitted to Medical Room 340-01 @ 1450 from PACU. Report was taken from Catie before transfer. Patient/family oriented to hospital policies and general routines including ID bracelet, bed and alarms, visiting hours, pain management, procedures, bathroom and other care routines, personal items, smoking policy, room service/diet, and visiting hours. Information on how to activate the Rapid Response Team has been discussed. Patient/Family are encouraged to report perceived risks to care and to ask questions if they do not understand what they are told or what they should do.
[2023-07-15] MEDS: KETOROLAC 15 MG/ML VIAL (*BKC) IV PUSH ×2 (18:23→23:28)
[2023-07-15] MEDS: oxyCODONE/ACETAMINOPHEN (*CRX) 5-325 MG TABLET 1 TABLET PO ×2 (19:35→23:27)
[2023-07-15] MEDS: SENNA/DOCUSATE SODIUM TABLET 2 TAB PO (19:41)
[2023-07-15] MEDS: ASPIRIN 325 MG ENTERIC TABLET PO (19:42)
[2023-07-15] MEDS: FAMOTIDINE 20 MG TABLET PO (19:42)
--- NOTE | 2023-07-15 23:37 | ECG_ITS ---
Measurements Intervals [place] Rate: 67 P: 60 CO: 144 QRS: 15 QRSD: 87 T: 17 QT: 422 QTc: 447 Interpretive Statements SINUS RHYTHM WITH MARKED SINUS ARRHYTHMIA BASELINE ARTIFACT- V1, V4 NORMAL ECG COMPARED TO ECG 01/25/2023 12:46:53 SINUS RHYTHM NOW PRESENT Electronically Signed On 07-16-2023 6:25:15 CDT by Edmond Shelley D.O.
--- NOTE | ~2023-07-16 | XR_ITS ---
EXAMINATION: [id number] DATE: 07/15/2023 13:06 INDICATION: Postoperative evaluation following left total knee arthroplasty. TECHNIQUE: Anteroposterior view of the left knee were obtained. COMPARISON: None. FINDINGS: Left total knee arthroplasty appears well seated and in near anatomic alignment on the single provide d frontal projections. No fractures identified. Anterior skin zee and expected postoperative sof t tissue gas about the left knee. Partially visualized prior right total knee arthroplasty. IMPRESSION: 1. Left total knee arthroplasty, negative for postoperative purposes. Reviewed, dictated and finalized at location A.
[2023-07-16 00:07] VITALS: BP 136/63; PULSE 101; RESP 16; TEMP 36.5; O2SAT 97
[2023-07-16] MEDS: ceFAZolin 2 GM/D5W 50 ML 2 GM/50 ML BAG IVPB ×2 (03:37→11:08)
[2023-07-16] MEDS: oxyCODONE/ACETAMINOPHEN (*CRX) 5-325 MG TABLET 1 TABLET PO ×2 (03:37→14:17)
[2023-07-16 04:15] VITALS: BP 140/64; PULSE 60; RESP 16; TEMP 36.4; O2SAT 100
[2023-07-16] MEDS: KETOROLAC 15 MG/ML VIAL (*BKC) IV PUSH ×3 (05:07→17:14)
[2023-07-16 05:54] LABS: Basophils Absolute Auto 0.1 K/mm3 (0.0-0.1); Basophils Percent Auto 0.7 % (0.2-1.2); Eosinophils Absolute Auto 0.1 K/mm3 (0-0.3); Eosinophils Percent Auto 0.6 % (0-4.4); Hemoglobin 10.8 g/dL (12.0-15.0); Immature Granulocyte Absolute 0.05 K/mm3 (0.00-0.031); Immature Granulocyte Percent A 0.5 % (0-0.5); Lymphocytes Absolute Auto 2.19 K/mm3 (0.9-3.2); Lymphocytes Percent Auto 21.6 % (18.3-44.2); Mean Corpuscular HGB Conc 31.8 g/dl (32-36); Mean Corpuscular Hemoglobin 32.2 pg (26-34); Mean Corpuscular Volume 101.5 fl (80-100); Mean Platelet Volume 9.1 fl (7.4-10.4); Monocytes Absolute Auto 1.1 K/mm3 (0.1-0.6); Neutrophils Absolute Auto 6.7 K/mm3 (1.3-6.7); Neutrophils Percent Auto 65.6 % (45.5-73.1); Platelet Count Result 241 k/mm3 (150-375); Red Blood Count 3.35 M/mm3 (4.2-5.4); White Blood Count 10.1 K/mm3 (4.5-10.0)
[2023-07-16 06:26] LABS: Anion Gap 4 mmol/L (8-16); Blood Urea Nitrogen 11 mg/dL (7-17); Carbon Dioxide 28 mmol/L (22-30); Chloride 96 mmol/L (98-107); Estimated CRCL calculation 71 ml/min; Estimated Glomerular Filt Rate > 60; Glucose 97 mg/dL (65-110); Potassium 4.2 mmol/L (3.4-5.0); Sodium 128 mmol/L (137-145)
[2023-07-16 08:00] VITALS: PULSE 60; RESP 16; O2SAT 100
[2023-07-16] MEDS: SENNA/DOCUSATE SODIUM TABLET 2 TAB PO ×2 (08:38→20:01)
[2023-07-16] MEDS: ATORVASTATIN 40 MG TABLET PO (08:38)
[2023-07-16] MEDS: LOSARTAN POTASSIUM 50 MG TABLET PO (08:38)
[2023-07-16] MEDS: CHOLECALCIFEROL 1,000 UNITS TABLET 1000 UNITS PO (08:38)
[2023-07-16] MEDS: FAMOTIDINE 20 MG TABLET PO ×2 (08:38→20:01)
[2023-07-16] MEDS: ASPIRIN 325 MG ENTERIC TABLET PO ×2 (08:38→20:01)
[2023-07-16] MEDS: polyethylene glycoL 3350 17 GM POWD.PACK PO (08:38)
--- NOTE | 2023-07-16 10:03 | WPDANESPN ---
Anes - Prog Note Post-Op Date/Time: 07/16/23 10:03 Cardiovascular status: normal Respiratory status: normal Airway patency: baseline Mental status: baseline Post-Op hydration status: normal Vital Signs: Last Vital Signs Temp 97.5 F L 07/16/23 04:15 Pulse 60 07/16/23 04:15 Resp 16 07/16/23 04:15 BP 140/64 07/16/23 04:15 Pulse Ox 100 07/16/23 04:15 O2 Del Method Room Air 07/15/23 14:30 O2 Flow Rate 8 07/15/23 13:00 Pain Score (VAS): 0 I/O: Intake & Output 07/15/23 07/16/23 07/16/23 23:59 07:59 15:59 Intake Total 840 1450 240 Output Total 600 400 Balance 240 1050 240 Laboratory Tests 07/16/23 05:45 07/16/23 05:45 07/16/23 05:45 WBC 10.1 H RBC 3.35 L Hgb 10.8 L Hct 34.0 L MCV 101.5 H MCH 32.2 MCHC 31.8 L RDW 13.0 Plt Count 241 MPV 9.1 Immature Gran % (Auto) 0.5 Neut % (Auto) 65.6 Lymph % (Auto) 21.6 [place] % (Auto) 11.0 H Eos % (Auto) 0.6 Baso % (Auto) 0.7 Lymph # (Auto) 2.19 [place] # (Auto) 1.1 H Eos # (Auto) 0.1 Baso # (Auto) 0.1 Abs Immat Gran (auto) 0.05 H Absolute Neuts (auto) 6.7 Absolute Nucleated RBC 0.0 Nucleated RBC % 0.0 Sodium 128 L Potassium 4.2 Chloride 96 L Carbon Dioxide 28 Anion Gap 4 L BUN 11 Creatinine 0.50 L Estim Creat Clear Calc 71 Estimated GFR > 60 Glucose 97 Calcium 9.0 Post-procedural complaints: none Patient Feedback: Patient satisfied with anesthetic care. Other Findings: Left femoral nerve block continues to provide relief. pt expresses some difficulty with physical therapy due to lack of quad function.
--- NOTE | 2023-07-16 13:55 | PM.PNORT ---
Progress Note: A&P Assessment and Plan (1) S/P total knee arthroplasty: Code(s): Z96.659 - Presence of unspecified artificial knee joint Status: Acute Assessment and Plan: POD 1 WITH SLOW PROGRESS WITH PT. SHE WILL CONTINUE PT AND PROBABLE DC IN THE AM Subjective Subjective Date/Time Seen: 07/16/23 13:55 Interval history: POD DOING WELL. HER FEMORAL BLOCK IS STILL ACTIVE. POOR PROGRESS WITH PT. NO CALF PAIN Exam Extrem: Other: VSS AFEBRILE DRESSING DRY NV INTACT NEG HOMANS SIGN, CALF AND THIGH NON TENDER Objective Data Vital Signs Vital Signs: Vital Signs - 24 hr 07/15/23 14:00 07/15/23 14:15 07/15/23 14:30 Temperature Pulse Rate 67 71 72 Respiratory Rate 20 22 H 17 Blood Pressure 139/61 133/69 146/76 H Pulse Oximetry 96 97 96 Oxygen Delivery Room Air Room Air Room Air 07/15/23 14:55 07/15/23 15:27 07/15/23 15:38 Temperature 36.6 C 36.6 C 36.1 C L Pulse Rate 65 65 64 Respiratory Rate 18 18 16 Blood Pressure 148/71 H 148/75 H 150/62 H Pulse Oximetry 100 99 100 Oxygen Delivery 07/15/23 16:40 07/15/23 20:27 07/16/23 00:07 Temperature 36.1 C L 36.4 C L 36.5 C Pulse Rate 69 81 101 H Respiratory Rate 18 18 16 Blood Pressure 136/78 130/68 136/63 Pulse Oximetry 99 98 97 Oxygen Delivery 07/16/23 04:15 07/16/23 09:50 07/16/23 08:00 Temperature 36.4 C L Pulse Rate 60 60 Respiratory Rate 16 16 Blood Pressure 140/64 Pulse Oximetry 100 100 Oxygen Delivery Room Air Room Air Intake/Output Intake/Output: Intake & Output 07/13/23 07/14/23 07/15/23 07/16/23 23:59 23:59 23:59 23:59 Intake Total 1390 1690 Output Total 600 400 Balance 790 1290 Meds/Results Medications: Active Medications Generic Name Dose Route Start Last Admin Trade Name Freq PRN Reason Stop Dose Admin Acetaminophen 1,000 mg 07/15/23 14:42 Acetaminophen 500 Mg Tablet PO Q6H PRN Pain Rated 1-3 Aspirin 325 mg 07/15/23 21:00 07/16/23 08:38 Aspirin 325 Mg Enteric Tablet PO 325 mg Q12HR SERG Administration Atorvastatin Calcium 40 mg 07/16/23 09:00 07/16/23 08:38 Atorvastatin 40 Mg Tablet PO 40 mg DAILY SERG Administration Diazepam 5 mg 07/15/23 14:42 Diazepam (*Crx) 5 Mg Tablet PO Q8H PRN Spasms Diphenhydramine HCl 25 mg 07/15/23 14:42 Diphenhydramine Hcl Inj 50 Mg/Ml Vial IV PUSH Q6H PRN Itching Famotidine 20 mg 07/15/23 21:00 07/16/23 08:38 Famotidine 20 Mg Tablet PO 20 mg Q12HR SERG Administration Ketorolac Tromethamine 15 mg 07/15/23 18:00 07/16/23 11:08 Ketorolac 15 Mg/Ml Vial (*Bkc) IV PUSH 07/16/23 18:01 15 mg Q6HR SERG Administration Losartan Potassium 50 mg 07/16/23 09:00 07/16/23 08:38 Losartan Potassium 50 Mg Tablet PO 50 mg QAM SERG Administration Naloxone HCl 0.1 mg 07/15/23 14:42 Naloxone Hcl 0.4 Mg/Ml Vial IV PUSH Q2M PRN Opiate Reversal Ondansetron HCl 4 mg 07/15/23 14:42 Ondansetron Inj 4 Mg/2 Ml Vial IV PUSH Q4H PRN Nausea And Vomiting Oxycodone/Acetaminophen 1 tablet 07/15/23 14:42 07/16/23 03:37 Oxycodone/Acetaminophen (*Crx) 5-325 Mg Tablet PO 1 tablet Q4H PRN Administration Pain Rated 4-6 Oxycodone/Acetaminophen 2 tablet 07/15/23 14:42 Oxycodone/Acetaminophen (*Crx) 5-325 Mg Tablet PO Q6H PRN Pain Rated 7-10 Polyethylene Glycol 17 gm 07/16/23 09:00 07/16/23 08:38 Polyethylene Glycol 3350 17 Gm Powd.Pack PO 17 gm QAM SERG Administration Senna/Docusate Sodium 2 tab 07/15/23 21:00 07/16/23 08:38 Senna/Docusate Sodium Tablet PO 2 tab Q12HR SERG Administration Vitamin D 1,000 units 07/16/23 09:00 07/16/23 08:38 Cholecalciferol 1,000 Units Tablet PO 1,000 units DAILY SERG Administration Radiology Results: ITS Impressions Knee X-Ray 07/15/23 13:20 IMPRESSION: 1. Left total knee arthroplasty, negative for postoperative purposes. Labs
[2023-07-16 14:00] VITALS: BP 121/56; PULSE 76; RESP 20; TEMP 36.6; O2SAT 100
[2023-07-16] MEDS: oxyCODONE/ACETAMINOPHEN (*CRX) 5-325 MG TABLET 2 TABLET PO (20:06)
[2023-07-16 21:12] VITALS: BP 140/46; PULSE 80; RESP 16; TEMP 35.7; O2SAT 99
[2023-07-17] MEDS: diazePAM (*CRX) 5 MG TABLET PO (00:22)
[2023-07-17] MEDS: oxyCODONE/ACETAMINOPHEN (*CRX) 5-325 MG TABLET 2 TABLET PO ×2 (02:13→08:27)
[2023-07-17 06:00] VITALS: BP 136/42; PULSE 63; RESP 12; TEMP 35.6; O2SAT 100
[2023-07-17 08:00] VITALS: PULSE 63; RESP 12; O2SAT 100
[2023-07-17] MEDS: polyethylene glycoL 3350 17 GM POWD.PACK PO (08:22)
[2023-07-17] MEDS: CHOLECALCIFEROL 1,000 UNITS TABLET 1000 UNITS PO (08:22)
[2023-07-17] MEDS: LOSARTAN POTASSIUM 50 MG TABLET PO (08:22)
[2023-07-17] MEDS: SENNA/DOCUSATE SODIUM TABLET 2 TAB PO (08:22)
[2023-07-17] MEDS: FAMOTIDINE 20 MG TABLET PO (08:22)
[2023-07-17] MEDS: ASPIRIN 325 MG ENTERIC TABLET PO (08:22)
[2023-07-17] MEDS: ATORVASTATIN 40 MG TABLET PO (08:23)
--- NOTE | 2023-07-17 09:07 | PM.PNORT ---
Progress Note: A&P Assessment and Plan (1) S/P total knee arthroplasty: Qualifiers: Laterality: left Qualified Code(s): Z96.652 - Presence of left artificial knee joint Code(s): Z96.659 - Presence of unspecified artificial knee joint Status: Acute Assessment and Plan: POD #1 : Left TKA Continue PT/OT. WBAT. Walker. HIGH FALL RISK. Continue pain control. Ice Knee. Protect skin. DVT prophylaxis with Aspirin. SCDs. Incentive Spirometry Use reviewed. Monitor Dressing. Change prior to discharge. Bowel Regimen. Dispo: Home with Home Health pending progress with PT/OT Plan Reviewed postoperative assessment, labs, and vitals with attending MD, Dr. Joaquin. Agrees with current plan as indicated above. No further recommendations. Subjective Subjective Date/Time Seen: 07/17/23 09:07 Post Op day: 2 Principal diagnosis: Left Knee DJD Interval history: POD #2: Left TKA Patient doing well this morning. Pain controlled. Still slow progress with PT/OT. Overall, not confident at this time to go home. Plans for afternoon PT. Review of Systems Review of Systems: All systems reviewed & are unremarkable except as noted in HPI and below Constitutional: Constitutional: Denies fever(s) and Denies headache(s) ENT: Denies headache(s) Cardiovascular: Cardiovascular: Denies chest pain, Denies diaphoresis, Denies palpitations and Denies dyspnea Respiratory: Respiratory: Denies dyspnea Gastrointestinal: Gastrointestinal: Denies abdominal pain, Denies constipation, Denies nausea and Denies vomiting Genitourinary: Genitourinary: Reports nocturia and Denies dysuria Musculoskeletal: Musculoskeletal: Reports arthralgias (Left Knee ), Reports joint swelling (Left Knee ) and Reports limited range of motion (ROM limited due to recent surgical intervention LEFT Knee ) Neurologic: Denies headache(s) Endocrine: Endocrine: Denies palpitations Exam Const: General: comfortable and no acute distress Resp: Effort & Inspection: normal respiratory effort Cardio: Rate: regular rate Rhythm: regular rhythm GI: GI Palp: Yes Soft to palpation, No Tenderness to palpation present (GI) and No Guarding due to palpation present (GI) Skin: General skin exam: wounds noted (see extremity assessment ) Wounds: wounds noted (see extremity assessment ) Neuro: Cognition (Neuro): normal cognition Other: NV intact aside from block. Moves toes. Sensation intact to light touch. +ankle dorsiflexion/plantarflexion. Extrem: Left lower extremity: normal to inspection, normal capillary refill, knee Details: tenderness (diffuse ) Location: of the patella, swelling (moderate consistent to recent surgery ), abnormal ROM (limited due to recent surgery ) Details: pain with active ROM and pain with passive ROM and ecchymosis (as expected with recent surgery. NO hematoma. ), lower leg (Negative Gustavo's Sign ), ankle (+ankle dorsiflexion/plantarflexion ) Details: normal to inspection, no edema and normal ROM; no tenderness and no swelling and foot Details: normal capillary refill, toes with normal ROM, vascular exam Details: dorsalis pedis pulse present and motor-sensory exam light-touch normal; no tenderness Other: Incision left TKA dressing c/d/i. No hematoma. No signs of infection. No wound dehiscence. Psych: Mental Status: mental status grossly normal Objective Data Vital Signs Vital Signs: Vital Signs - 24 hr 07/16/23 09:50 07/16/23 14:00 07/16/23 21:12 Temperature 36.6 C 35.7 C L Pulse Rate 76 80 Respiratory Rate 20 16 Blood Pressure 121/56 L 140/46 L Pulse Oximetry 100 99 Oxygen Delivery Room Air 07/17/23 06:00 Temperature 35.6 C L Pulse Rate 63 Respiratory Rate 12 Blood Pressure 136/42 L Pulse Oximetry 100 Oxygen Delivery Intake/Output Intake/Output: Intake & Output 07/14/23 07/15/23 07/16/23 07/17/23 23:59 23:59 23:59 23:59 Intake Total 1390 3410 350 Output Total 600 400 Bal
[2023-07-17] MEDS: oxyCODONE/ACETAMINOPHEN (*CRX) 5-325 MG TABLET 1 TABLET PO (13:00)
--- NOTE | 2023-07-17 15:24 | PM.DS ---
DS: Admitting Diagnosis Discharge Date 07/17/23 Admitting Diagnosis Left Knee DJD DS: Discharge Diagnosis Discharge Diagnosis (1) S/P total knee arthroplasty: Qualifiers: Laterality: left Qualified Code(s): Z96.652 - Presence of left artificial knee joint Code(s): Z96.659 - Presence of unspecified artificial knee joint Status: Acute Assessment and Plan: POD #1 : Left TKA Continue PT/OT. WBAT. Walker. HIGH FALL RISK. Continue pain control. Ice Knee. Protect skin. DVT prophylaxis with Aspirin. SCDs. Incentive Spirometry Use reviewed. Monitor Dressing. Change prior to discharge. Bowel Regimen. Dispo: Home with Home Health pending progress with PT/OT Plan Reviewed postoperative assessment, labs, and vitals with attending MD, Dr. Joaquin. Agrees with current plan as indicated above. No further recommendations. DS: Summary Hospital Course Reason for hospitalization: Left TKA Hospital Course: 67 year old female admitted s/p Left TKA for postoperative medical management, pain control and mobilization with PT/OT. Patient progressed well with PT/OT. Pain and vitals remained stable throughout. The patient has been cleared to be discharged home with home health at this time. All discharge care instructions reviewed at depth. New medications reviewed. Follow up planned for 3 weeks in the outpatient orthopedic clinic with Dr. Joaquin. Status at Discharge Functional status at discharge: uses cane/walker Overall status at discharge: patient is progressing back to baseline Time Spent with Patient Time attestation: Total time spent providing and/or coordinating discharge services: Exam Const: General: comfortable and no acute distress Resp: Effort & Inspection: normal respiratory effort Cardio: Rate: regular rate Rhythm: regular rhythm Skin: General skin exam: wounds noted (see extremity assessment ) Wounds: wounds noted (see extremity assessment ) Neuro: Cognition (Neuro): normal cognition Other: NV intact aside from block. Moves toes. Sensation intact to light touch. +ankle dorsiflexion/plantarflexion. Extrem: Left lower extremity: normal to inspection, normal capillary refill, knee Details: tenderness (diffuse ) Location: of the patella, swelling (moderate consistent to recent surgery ), abnormal ROM (limited due to recent surgery ) Details: pain with active ROM and pain with passive ROM and ecchymosis (as expected with recent surgery. NO hematoma. ), lower leg (Negative Gustavo's Sign ), ankle (+ankle dorsiflexion/plantarflexion ) Details: normal to inspection, no edema and normal ROM; no tenderness and no swelling and foot Details: normal capillary refill, toes with normal ROM, vascular exam Details: dorsalis pedis pulse present and motor-sensory exam light-touch normal; no tenderness Other: Incision left TKA dressing c/d/i. No hematoma. No signs of infection. No wound dehiscence. Psych: Mental Status: mental status grossly normal Discharge Plan Discharge Attending physician on discharge: Slim Joaqiun Discharging Clinician: Aisha Villaseñor Patient Disposition: Home Health Service Activity: may shower, no driving and follow weight bearing status Diet: as tolerated Wound Care Instructions: follow printed instructions Discharge Instructions: Post Op Total Knee Replacement Instructions Dr. Slim Joaquin [phone] Your dressing will be changed prior to your discharge. You will be sent home with one additional dressing to be changed on post op day 7 by the home health RN. Your zee will be removed on the 14th day after surgery and steri-strips will be placed. Please practice good hand hygiene and do not touch your incision in order to prevent infection. You may shower with your dressing but do not submerge in a bath tub. Do not drive or operate machinery until you are released by Dr. Joaquin. Do not walk without a walker for any reason until you are
== END 2023-07-17 16:03 | disposition home health service (06) ==
LOC: ANHSURGERY 14:15 → ANH3MED 14:15
PROVIDERS: Admitting Provider Orthopaedic Surgery; PCP Emergency Medicine; Visit Provider Orthopaedic Surgery
PROC: (CPT 27447; principal; 2023-07-15 10:30)
DX: M17.12 Unilateral primary osteoarthritis, left knee (principal); G89.18 Other acute postprocedural pain; I10 Essential (primary) hypertension; E78.5 Hyperlipidemia, unspecified; G47.33 Obstructive sleep apnea (adult) (pediatric); Z86.73 Personal history of transient ischemic attack (TIA), and cerebral infarction without residual deficits; Z79.891 Long term (current) use of opiate analgesic; Z98.84 Bariatric surgery status; Z87.891 Personal history of nicotine dependence
CPT/HCPCS: 27447; 64447; 36415; 73560; 80048; 80307; 81001; 82040; 85025; 85610; 85730; 86850; 86900; 86901; 87081; 93005; 97110; 97116; 97161; 97165; 97530; 97535; A9270; C1713; C1776; G0378; G0379; J0171; J0690; J1100; J1170; J1200; J1885; J2250; J2270; J2371; J2405; J2704; J2795; J3010; J7120

== ENCOUNTER 2023-11-28 07:34 | Outpatient (CLI) | payer MEDICARE, OTHER, SELFPAY ==
--- NOTE | ~2023-11-28 | CT_ITS ---
CT Scan of the Chest without Contrast: Clinical Indication: Lung cancer screening, personal history of nicotine dependence Technique: Contiguous sections were acquired throughout the chest without intravenous contrast. Dose reduction technique was used on this scan by utilizing automated exposure control and iterative recon struction technique. The dose-length product (DLP) was 55.45 mGy-cm. COMPARISON: 10/09/2022 Findings: There is no evidence of any significant mediastinal, hilar or axillary lymphadenopathy. The mediastin al soft tissues appear normal. There is no evidence of pleural or pericardial effusion. Calcified right upper lobe granuloma present. 3 mm left basilar pulmonary nodules noted. Images through the upper abdomen reveal no abnormalities. Impression: Lung RADS 2: Benign appearance. 12 month follow-up screening CT advised. Reviewed, dictated and finalized at [facility]. [employer] Impression: Lung RADS 2: Benign appearance. 12 month follow-up screening CT advised.
== END 2023-11-28 07:35 | disposition home or self-care (01) ==
PROVIDERS: PCP Emergency Medicine; Visit Provider Emergency Medicine
DX: Z12.2 Encounter for screening for malignant neoplasm of respiratory organs (principal); Z87.891 Personal history of nicotine dependence
CPT/HCPCS: 71271

== ENCOUNTER 2024-04-20 07:56 | Outpatient (CLI) | payer MEDICARE, OTHER, SELFPAY ==
--- NOTE | ~2024-04-20 | MM_ITS ---
EXAMINATION: MM screening tone BI w sridevi HISTORY: Screening mammogram TECHNIQUE: Craniocaudal and mediolateral oblique 3-D tomosynthesis images were obtained and synthetic 2-D images were generated. CAD analysis was submitted and interpreted. COMPARISON: 12/11/2022 BREAST PARENCHYMAL COMPOSITION:Dense: The breasts are heterogeneously dense, which may obscure small masses. FINDINGS: Stable mild diffuse skin thickening bilaterally. No suspicious mass, calcification, or arch itectural distortion are identified in either breast to suggest malignancy. There has been no suspici ous interval change. IMPRESSION: No mammographic evidence of malignancy. Recommend routine screening mammography in one year. BI-RADS Category 1: Negative Reviewed, dictated and finalized at location .
== END 2024-04-20 07:57 | disposition home or self-care (01) ==
LOC: ANHIMG 07:57
PROVIDERS: PCP Emergency Medicine; Visit Provider Emergency Medicine
DX: Z12.31 Encounter for screening mammogram for malignant neoplasm of breast (principal)
CPT/HCPCS: 77063; 77067

== ENCOUNTER 2025-02-06 07:53 | Outpatient (CLI) | payer MEDICARE, OTHER, SELFPAY ==
--- NOTE | ~2025-02-06 | CT_ITS ---
CT Scan of the Chest without Contrast: Clinical Indication: Smoking history Technique: Contiguous sections were acquired throughout the chest without intravenous contrast. Dose reduction technique was used on this scan by utilizing automated exposure control and iterative recon struction technique. The dose-length product (DLP) was 63.99 mGy-cm. COMPARISON: 11/28/2023 Findings: There is no evidence of any significant mediastinal, hilar or axillary lymphadenopathy. Extensive cor onary artery calcifications are present. There is no evidence of pleural or pericardial effusion. Stable calcified right upper lobe granuloma. Stable 2 mm groundglass nodule in the peripheral left lo wer lobe (axial image 82). Images through the upper abdomen reveal probable prior bariatric surgery. Impression: Stable tiny groundglass nodule in the left lower lobe. Reviewed, dictated and finalized at location . Impression: Stable tiny groundglass nodule in the left lower lobe.
--- OUTSIDE RECORDS SUMMARY | 2025-02-06 07:56 | XMS_ITS | CONTINUITY OF CARE DOCUMENT ---
Author Name rupa goode Address Unknown Organization [facility] Address [address] [place] [address] Phone [phone] Care Team Providers Care Inspector Type Name Role Phone Seferino CABELLO, Albino Unavailable CHANTELL DEGROOT Unavailable CHANTELL DEGROOT Unavailable PROBLEMS Condition Status Date Provider Notes Family History of CVA or Stroke: active ? Julio Cesar Gentile MD Tobacco abuse active Albino Gentile MD Hyperlipidemia active Albino Gentile MD HTN essential active Albino Gentile MD Obesity s/p gastric bypass a [place] stress nuclear active Albino Gentile MD Shortness of breath-- echo n l LVEF 09/2020 , impaired relaxaion ef 65% nl stress nuc 2013 active Julio Cesar Gentile MD Sleep apnea off CPAP,after weight loss active Albino Gentile MD PAC active Albino Gentile MD Preoperative cardiovascular examination for shoulder surgery active Albino Gentile MD ENCOUNTERS Date Type Provider Location Encounter Diag nosis - In-person encounter Office Visit Albino Gentile MD [place] [facility] Preoperative cardiovascular examination for shoulder surgery - In-person encounter Office Visit Albino Gentile MD [facility] Shortness of breath- - echo nl LVEF 09/2020 , impaired relaxaion ef 65% nl stress nuc 2013 - In-person encounter Office Visit [place] [facility] - In-person encounter Office Visit Albino Gentile MD [place] [facility] Sleep apnea off CPAP,after weight loss - In-person encounter Office Visit Albino Gentile MD [place] [facility] HyperlipidemiaObesity s/p gastric bypass at [facility] [place] [facility], [place] stress nuclearPAC - In-person encounter Office Visit Albino Gentile MD [place] [facility] Obesity s/p gastric bypass at [facility] [place], [place] stress nuclear - In-person encounter Office Visit Albino Gentile MD [place] [facility] - In-person encounter Office Visit Albino Gentile MD [place] [facility] Family History of CVA or Stroke:Tobacco abuseHyperlipidemiaHTN essentialObesity s/p gastric bypass at [facility] [place], [place] stress nuclearShortness of breath-- echo nl LVEF 09/2020 , impaired relaxaion ef 65% nl stress nuc 2013Sleep apnea off CPAP,after weight loss VITAL SIGNS Date Observation Value Provider Body Mass Index (Ratio) 25.88 kg/m2 Arias Gentile MD blood pressure, diastolic 72 mm[Hg] Gabi Walsh blood pressure, systolic 148 mm[Hg] Vanna Walsh oxygen saturation, oximetry 98 % Yanet Walsh respiratory rate E&M 16 /min Hermann Walsh pulse rate 58 /min Yanet avalos weight E&M 137 [lb_av] Yanet avalos blood pressure, cuff size regular Gabi Walsh height E&M 61 [in_i] Yanet avalos blood pressure, diastolic 60 mm[Hg] Elsy nkLogayla blood pressure, systolic 108 mm[Hg] Estela kLogayla Body Mass Index (Ratio) 25.28 kg/m2 Arias Gentile MD blood pressure, diastolic 60 mm[Hg] Georgina Frankel blood pressure, systolic 108 mm[Hg] Clementina Frankel oxygen saturation, oximetry 97 % Be Frankel respiratory rate E&M 16 /min Luis M Frankel pulse rate 62 /min Be anand weight E&M 133.8 [lb_av] Be fry height E&M 61 [in_i] Be anand Body Mass Index (Ratio) 25.32 kg/m2 Tara fabiana Hdz blood pressure, diastolic 64 mm[Hg] Cy ntherbertha White blood pressure, systolic 114 mm[Hg] Hedy nafisa White blood pressure, cuff size regular Cy ntayo White pulse rate 55 /min Aleta Majo l oxygen saturation, oximetry 96 % Aleta White respiratory rate E&M 16 /min Aleta White weight E&M 134 [lb_av] Aleta Campbel l height E&M 61 [in_i] Aleta Campbel l Body Mass Index (Ratio) 26.45 kg/m2 Arias Gentile MD pulse rate 67 /min Kaci Block blood pressure, diastolic 70 mm[Hg] Br ittany Block blood pressure, systolic 140 mm[Hg] Katty abram Block oxygen saturation, oximetry 96 % Kaci Block weight E&M 140 [lb_av] Kaci Block blood pressure, resting No Brit arturo Block respiratory rate E&M 16 /min Brittan y Block height E&M 61 [in_i] Kaci Block Body Mass Index (Ratio) 26.45 kg/m2 Arias Gentile MD blood pressure, cuff size regular Cy ntherbertha White blood pressure, diastolic 64 mm[Hg] Yuriy White blood pressure, systolic 126 mm[Hg] Hedy White oxygen saturation, oximetry 98 % Aleta White respiratory rate E&M 16 /min Aleta White pulse rate 96 /min Aleta boucher weight E&M 140 [lb_av] Aleta boucher height E&M 61 [in_i] Aleta boucher blood pressure, diastolic 79 mm[Hg] Il jacqueline Hawkins blood pressure, systolic 140 mm[Hg] Luz marcano Hawkins pulse rate 84 /min Janessa Hawkins oxygen saturation, oximetry 97 % Janessa Hawkins respiratory rate E&M 15 /min Janessa Hawkins Body Mass Index (Ratio) 38.92 kg/m2 Tara jung Hawkins weight E&M 206 [lb_av] Janessa Hawkisn Body Mass Index (Ratio) 53.47 kg/m2 Marya thiago Valle blood pressure, diastolic 95 mm[Hg] An evaristo Valle blood pressure, systolic 157 mm[Hg] Ane yakovs [facility] pulse rate 94 /min Aneatris [facility] oxygen saturation, oximetry 97 % Aneatris [facility] respiratory rate E&M 20 /min Aneatri s [facility] weight E&M 283 [lb_av] Aneatris Brown Body Mass Index (Ratio) 54.03 kg/m2 Marya thiago Valle blood pressure, diastolic 97 mm[Hg] An ivyris Leonard blood pressure, systolic 149 mm[Hg] Ane atris Brown pulse rate 97 /min Aneatris Brown oxygen saturation, oximetry 98 % Aneatris Brown respiratory rate E&M 20 /min Aneatri s Brown weight E&M 286 [lb_av] Aneatris Leonard height E&M 61 [in_i] [facility] ALLERGIES No Known Drug Allergies RESULTS Date Observation Value Provider Reference Range Interpretation Location 2 thyroid stimulating hormone, serum 1.470 u[IU]/mL [facility] 0.450-4.500 2 hemoglobin A1C, blood, as % of total hemoglobin 5.1 % [facility] 4.8-5.6 2 lipoprotein, beta, serum, point, quantitative, calculated 61 mg/dL [facility] 0-99 2 HDL cholesterol, serum 91 mg/dL [facility] >39 2 triglyceride, serum, random 49 mg/dL [facility] 0-149 2 cholesterol, serum 162 mg/dL [facility] 218-925 7327/12/1 2 platelet count 302 X10E3/UL [facility] 243-360 0002/12/1 2 red blood cell distribution width 13.0 % [facility] 11.7-15.4 2 mean corpuscular hemoglobin concentration, RBC 33.0 G/DL [facility] 31.5-35.7 2 mean corpuscular hemoglobin, RBC 30.9 [facility] 26.6-33.0 2 mean corpuscular volume, RBC 94 fL [facility] 79-97 2 hematocrit, blood 40.0 % [facility] 34.0-46.6 2 hemoglobin, blood 13.2 g/dL [facility] 11.1-15.9 2 erythrocyte (RBC) count 4.27 X10E6/UL [facility] 3.77-5.28 2 leukocyte count, blood 7.4 X10E3/UL [facility] 3.4-10.8 2 alanine aminotransferase (SGPT), serum 17 1/L [facility] 0-32 2 aspartate aminotransferase (SGOT), serum 24 1/L [facility] 0-40 2 alkaline phosphatase, serum 104 1/L [facility] 39-117 2 bilirubin, serum, total 0.3 mg/dL [facility] 0.0-1.2 2 albumin/globulin ratio, serum 2.3 [facility] 1.2-2.2 High 2 globulin, serum 2.0 [facility] 1.5-4.5 2 albumin, serum 4.6 g/dL [facility] 3.8-4.8 2 protein, total, serum 6.6 g/dL [facility] 6.0-8.5 2 calcium, serum 10.1 mg/dL [facility] 8.7-10.3 2 carbon dioxide, venous blood 25 mmol/L [facility] 20-29 2 chloride, serum 99 mmol/L [facility] 96-106 2 potassium, serum 4.3 mmol/L [facility] 3.5-5.2 2 sodium, serum 137 mmol/L [facility] 692-499 6393/12/1 2 urea nitrogen/creatinine ratio, serum 13 [facility] 12-28 2 eGFR if 115 mL/min/{1 .73_m2} [facility] >59 2 eGFR if not 100 mL/min/{1 .73_m2} [facility] >59 2 creatinine, serum 0.55 mg/dL [facility] 0.57-1.00 Low 2 urea nitrogen, blood 7 mg/dL [facility] 8-27 Low 2 blood glucose, random 79 mg/dL [facility] 65-99 6 red blood cell distribution width, size density 47.1 fL [facility] - 6 immature granulocytes, percentage of total cells, blood 0.1 % [facility] - 6 nucleated red blood cells as percent of blood leukocytes 0.0 % [facility] red blood cell (erythrocyte) count, per high power field 0.0 10*3/UL [facility] - 6 eosinophils as percent of blood leukocytes 1.0 % [facility] - 6 neutrophils as percent of blood leukocytes 52.5 % [facility] - 6 Absolute Neutrophils 3.8 CELLS/UL [facility] 1.5 - 7.8 6 basophils as percent of blood leukocytes 0.8 % [facility] - 6 Absolute Basophils 0.1 CELLS/UL [facility] 0.0 - 0.2 6 monocytes as percent of blood leukocytes 14.8 % [facility] - 6 Absolute Monocytes 1.1 CELLS/UL [facility] 0.2 - 1.0 High 6 lymphocytes as percent of blood leukocytes 30.8 % [facility] - 6 Absolute Lymphocytes 2.2 CELLS/UL [facility] 0.9 - 3.9 6 mean platelet volume 11.5 (?) [facility] - 6 platelet count 276.0 THOUSAND/ UL [facility] 100.0 - 400.0 6 mean corpuscular hemoglobin concentration, RBC 32.4 G/DL [facility] 31.0 - 38.0 6 mean corpuscular hemoglobin, RBC 29.7 pg [facility] 25.0 - 35.0 6 mean corpuscular volume, RBC 91.7 fL [facility] 75.0 - 100.0 hematocrit, blood 45.1 % [facility] 35.0 - 55.0 6 hemoglobin, blood 14.6 g/dL [facility] 11.5 - 16.5 6 erythrocyte count, whole blood 4.9 MILLION/U L [facility] 3.5 - 5.5 6 hemoglobin A1C, blood, as % of total hemoglobin 5.5 % [facility] 4.0 - 6.0 6 very low density lipoproteins 23.8 mg/dL [facility] 5.0 - 40.0 6 LDL/HDL (low-density lipoprotein/high-den sity lipoprotein) ratio 1.1 RATIO [facility] - 6 HDL cholesterol, serum 59.0 mg/dL [facility] 45.0 - 65.0 6 sum total cholesterol 149.0 mg/dL [facility] 0.0 - 200.0 Triglycerides-direct 119.0 mg/dL [facility] 0.0 - 150.0 anion gap, serum 15.6 [facility] - 6 albumin/globulin ratio, serum 2.7 g/dL [facility] 1.1 - 2.5 High globulin, serum 3.1 [facility] 2.3 - 3.8 urea nitrogen/creatinine ratio, serum 18.0 [facility] - Estimated Glomerular Filtration Rate (calc) 134.7 (?) [facility] 59.0 - 6 chloride, serum 98.4 mmol/L [facility] 98.0 - 107.0 6 potassium, serum 4.3 mmol/L [facility] 3.5 - 5.1 6 sodium, serum 139.0 mmol/L [facility] 136.0 - 145.0 6 creatine, serum 0.5 mg/dL [facility] 0.5 - 0.9 carbon dioxide, venous blood 25.0 mmol/L [facility] 22.0 - 29.0 6 albumin, serum 4.6 g/dL [facility] 3.5 - 5.2 6 calcium, serum 10.5 mg/dL [facility] 8.6 - 10.2 High aspartate aminotransferase (SGOT), serum 40.0 1/L [facility] 0.0 - 32.0 High alkaline phosphatase, serum 175.0 1/L [facility] 40.0 - 130.0 High alanine aminotransferase (SGPT), serum 35.0 1/L [facility] 0.0 - 33.0 High protein, total, serum 7.7 g/dL [facility] 6.6 - 8.7 urea nitrogen, blood 9.0 mg/dL [facility] 6.0 - 20.0 Glucose Urine 97.0 mg/dL [facility] 74.0 - 99.0 bilirubin, serum, total 0.3 mg/dL [facility] 0.0 - 1.2 HISTORY OF MEDICATION USE Medication Status Instructions Dates Provider Indications [facility] tramadol 50 mg tablet active Yanet Walsh hydrocodone-acet aminophen 7.5-325 mg tablet completed 1 tablet by mouth twice a day as needed - Be Frankel Lyrica 75 mg capsule completed 1 capsule by mouth twice a day - Be Frankel baclofen 10 mg tablet completed 1 tablet three times a day - BeUma Milanenson #90, 30 days supply, Filled 08/09/2020 tramadol 50 mg tablet completed Take 1 tablet by mouth twice a day - Be Frankel #40, 20 days supply, Prescribed by CHANTELL SANDHU, Filled 08/14/2020 naproxen 500 mg tablet completed 1 tablet twice a day - Be Frankel #60, 30 days supply, Prescribed by CHANTELL SANDHU, Filled 09/14/2020 Linzess 72 mcg capsule completed Take 1 capsule once a day - Aleta White Tums 200 mg calcium (500 mg) tablet,chewable completed as directed - Janessa Hawkins MULTIVITAMINS CAPS active 1 tablet once a day Janessa Hawkins URSODIOL 300 MG ORAL CAPSULE completed twice daily - Aleta White DulcoEase 100 mg capsule completed as directed - Janessa Hawkins Miralax 17 gram/dose powder completed as directed - Janessa Hawkins GAS-X TABLET CHEWABLE completed as needed - Janessa Hawkins ASPIRIN 81 MG ORAL TABLET completed ONE TAB. DAILY - Janessa Hawkins VITAMIN D TABLET active 1 tablet twice a day Nikhil Sinclairmedzanaida VITAMIN B-12 500 MCG TABS active 1 tablet once a day Nikhil Cruzzai Lipitor 40 mg tablet active 1 tablet once a day Janessa Hawkins ZETIA 10 MG ORAL TABLET completed ONE TAB. DAILY - Aleta White RANITIDINE HCL 150 MG ORAL CAPSULE completed 2 tablet once a day - Be Frankel losartan 50 mg tablet active 1 tablet once a day Nikhil Livan NAPRELAN 500 MG ORAL TABLET EXTENDED RELEASE 24 HOUR completed 1 tab twice daily - Janessa Hawkins SOCIAL HISTORY Date Observation Value Provider smoking/tobacco cess ation, patient education and counseling yes Albino Gentile MD Exercise counseling yes Diana Walsh social history reviewed E&M revi ewed - no changes required Nikhil Licona smoking, year quit 2013 Be Frankel smoking, date started 1968 Jem Frankel smoking history, tot al pack/year 46 Be Frankel smoking history, tot al pack/day 1.5 Be Frankel cigarette use yes Be fry smoking status Former smoker Be Palencia social history E&M Smoking Histo ry: Marquise asldana is a former smoker. Nikhil Licona social history reviewed E&M revi ewed - no changes required Nikhil Licona social history E&M S moking History: Marquise saldana is a former smoker. Albino Gentile MD social history reviewed E&M revi ewed - no changes required Albino Gentile MD smoking, year quit 2013 Aleta paniagua smoking, date started 1969 Parker White smoking history, tot al pack/year 46 Aleta White smoking history, tot al pack/day 1.5 Aleta White cigarette use yes Aleta galloway smoking status Former smoker Aleta pedro social history E&M S moking History: Marquise saldana is a former smoker. Albino Gentile MD smoking, year quit 2013 Kaci Block smoking, date started 1969 [place] Block smoking history, tot al pack/year 46 Kaci Block smoking history, tot al pack/day 1.5 Kaci Block cigarette use yes Kaci Block smoking status Former smoker Kaci Villa ck number of grandchildren Albino Gentile MD T kathy Gentile MD social history E&M S moking History: Marquise saldana is a former smoker. Albino Gentile MD social history reviewed E&M revi ewed - no changes required Albino Gentile MD smoking, year quit 2013 Aleta Sol paniagua smoking, date started 1968 Parker White smoking history, tot al pack/year 45 Aleta White smoking history, tot al pack/day 1.5 Aleta White cigarette use yes Aleta Pazdanial galloway smoking status Former smoker Aleta Paz mayela social history reviewed E&M revi ewed - no changes required Albino Gentile MD smoking, year quit 2013 Janessa Simmons Delfin smoking, date started 1967 Skye maloney Ross smoking history, tot al pack/year 46 Janessa Ross smoking history, tot al pack/day 1.5 Janessa Ross cigarette use yes Janessa Ross smoking status Former smoker Janessa Costello nn smoking/tobacco cess ation, patient education and counseling yes Albino Gentile MD social history reviewed E&M revi ewed - no changes required Albino Gentile MD smoking history, tot al pack/year 45 Albino Gentile MD smoking/tobacco cess ation, patient education and counseling yes Albino Gentile MD social history reviewed E&M revi ewed - no changes required Albino Gentile MD smoking, date started 1968 Aneatr is Leonard smoking history, tot al pack/day 1.5 Marina Leonard cigarette use yes Marina Leonard smoking status Current every day smoker A robbysergei Valle FAMILY HISTORY Family Member Condition Full Sister Family History of CV A or Stroke: Full Brother Family History of CV A or Stroke: Mother Family History of CV A or Stroke: Father Family History of CV A or Stroke: INSURANCE PROVIDERS Payer name Policy type / Coverage type [place] red democrat ID A[employer] MEDICARE [place] PPO 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 [facility] [id number] [place] [id number] ADVANCE DIRECTIVES Name Date DISCUSSED - NO DECISION MADE TREATMENT PLAN Date Name Performer [id number],B, Nikhil Ahmedza i [id number],S, Nikhil Ahmedza i [id number],S, Nikhil Ahmedza i [id number],S, Nikhil Ahmedza i [id number],S, Nikhil Ahmedza i [id number],S, Nikhil Ahmedza i [id number],S, Nikhil Ahmedza i [id number],S, Nikhil Ahmedza i [id number],S, Nikhil Ahmedza i [id number],S, Nikhil Ahmedza i Cardiology Nikhil Ahmedzai Cardiology Nikhil Ahmedzai Cardiology Nikhil Ahmedzai Cardiology Nikhil Ahmedzai Cardiology Nikhil Ahmedzai Cardiology Nikhil Ahmedzai Cardiology Nikhil Ahmedzai Cardiology Nikhil Ahmedzai Cardiology Nikhil Ahmedzai Cardiology Nikhil Licona Cardiology follow up Albino reeves MD Cardiology follow up Albino reeves MD Cardiology follow up Albino reeves MD Cardiology follow up Albino reeves MD Cardiology echo , ca soore, pfts , labs, tele f/up Albino Gentile MD Cardiology echo , [place], pfts , labs, tele f/up Albino Gentile MD Cardiology echo , [place], pfts , labs, tele f/up Albino Gentile MD Cardiology echo , [place], pfts , labs, tele f/up Albino Gentile MD Cardiology echo , [place], pfts , labs, tele f/up Albino Gentile MD Cardiology New Patient Julio Cesarikendrick camargo MD Cardiology New Patient Toniya Benny camargo MD Cardiology New Patient Toniya Benny camargo MD Cardiology New Patient Julio Cesarikendrick camargo MD Cardiology New Patient Julio Cesarikendrick camargo MD Cardiology Albino Gentile MD Cardiology Albino Gentile MD Cardiology Albino Gentile MD Cardiology Albino Gentile MD Cardiology Albino Gentile MD follow up: H er updated medication list for this problem includes: Aspirin 81 Mg Tabs (Aspirin) ..... One tab. daily Losartan Potassium 50 Mg Tabs (Losartan potassium) ..... 1 tab daily BP today: 157/95 P rior BP: 149/97 (07/11/2014) Albino Gentile MD new patient visit: H er updated medication list for this problem includes: Aspirin 81 Mg Tabs (Aspirin) ..... One tab. daily Losartan Potassium 50 Mg Tabs (Losartan potassium) ..... 1 tab daily Albino Gentile MD Date Name Complete Echo TSH, 3RD GENERATION W/REFLEX TO FT4 CBC (H/H, RBC, INDIC ES, WBC, PLT) HEMOGLOBIN A1c LIPID PANEL COMPREHENSIVE METABO LIC PANEL, W/EGFR Holter Monitor 24 Hr Complete Echo HEMOGLOBIN A1c LIPID PANEL COMPREHENSIVE METABO LIC PANEL W/EGFR CBC (INCLUDES DIFF/P LT) DLCO Order - [id number] FRC Order - [id number] FVC Order - [id number] HISTORY OF PROCEDURES Procedure Date Procedure Name Provider Procedure Notes S tatus EKG Albino Gentile MD completed FVC / MVV - 14137 Albino Gentile MD co mpleted FRC - 47409 Albino Gentile MD complete d SpO2 w/o 6min walk/titration Albino Gentile MD completed DLCO - 21637 Albino Gentile MD complet ed EKG Albino Gentile MD completed EKG Albino Gentile MD completed SNOMED-CT: [id number] Physical Exam, Performed: Pulse Exam of Foot Albino Gentile MD completed SNOMED-CT: [id number] Current Medications Documented Albino Gentile MD completed EKG Albino Gentile MD completed
--- OUTSIDE RECORDS SUMMARY | 2025-02-06 07:56 | XMS_ITS | Continuity of Care Document ---
Author Organization [facility] Address [address] [place] [address] [place] [address] Phone Care Team Providers Care Agricultural Consultant Name Role Phone Lesly Max Unavailable Unavailable Procedures Procedure Date Eye Exam & Treatment Refraction Eye Exam, New Patient Refraction Advance Directives Directive Yes / No Effective Date File Name No Information Encounters Encounter Description Practice Location Reason(s) For Visit Diagnoses Date Provider Providers Copied on Encounter [facility], [address] [place] [address] [address], [place], [place], [id number], [place] tel:[phone] [facility] No Information 8-201 0 [facility]. [address] [place] [address] , [address], [place], [address], [place]. tel:[phone] [facility], [address] [place] [address] [address], [place], [place], [id number], [place] tel:[phone] [facility] No Information 6-200 8 [facility] . [address] [facility], [address], [place], [place], [id number], [place]. tel:[phone] Referring Provider: Lesly Conway, [address] [place] [address] [address], [place], [address]. tel:[phone] sulting Provider: Claudio Jones, [address] [place] [address], [place], [address]. tel:[phone] [facility], [address] [place] [address] [address], [place], [place], [id number], [place] tel:[phone] [facility] No Information 200 8 [facility]. [address] [facility] , [address], [place], [address], [place]. tel:[phone] Family History Family Member Type Diagnosis Age At Onset No Information Payers Payer name Insurance type Covered green party ID Authoriza tion(s) No Information Social History [...]
--- OUTSIDE RECORDS SUMMARY | 2025-02-06 07:56 | XMS_ITS | Data Portability ---
[facility] Organization [facility] Address [address] [place] [address] Assessment No assessment recorded. Plan of Treatment Reminders Order Date Submit Date Provider Last Modified By Organization Details Last Modified Time Details Appointments None recorded. Lab culture, urine 2019 [facility], [address] [place] [address], [address], [place], [address], 0 07:10:57 Referral physical therapist referral - please call patient to schedule appt. Thank you 2019 [facility], [address] [place], [address], 1 14:28:29 Procedures None recorded. Surgeries None recorded. Imaging XR, lumbosacr al spine, 4 or more view 2019 [facility]), [address] [place], [address], 0 14:00:46 Medication Orders Pennsaid 20 mg/gram/a ctuation (2 %) topical soln in metered-d ose pump 2019 [facility], [address], [place], [id number], 0 08:34:49 hydrocodo ne 7.5 mg-acetam inophen 325 mg tablet [address] [facility], [address] [place], [address], 0 12:56:55 naproxen 500 mg tablet 2019 020 [email or web address], [address] [place] [address], [address], 0 13:55:27 Pennsaid 20 mg/gram/a ctuation (2 %) topical soln in metered-d ose pump 2019 [address] [place] [address] [facility], [address] [place] [address], [id number], 0 13:55:27 tramadol 50 mg tablet 2019 020 [place] [address] [facility], [address] [place] [address], [address], 0 10:53:36 prednison e 20 mg tablet 2019 020 [facility], [address] [place] [address], [address], 0 10:54:35 naproxen 500 mg tablet 2019 020 [facility], [address] [place] [address], [address], 0 10:50:14 prednison e 20 mg tablet 2019 020 [facility]61, [address] [place], [address], 0 10:54:35 naproxen 500 mg tablet 2019 020 [facility]FACE [facility]61, [address] [place], [address], 0 12:24:08 ciproflox acin 500 mg tablet 2019 020 [facility], [address] [place] [address], [address], 0 10:53:09 prednison e 20 mg tablet 2019 020 [facility], [address] [place] [address], [address], 0 10:54:35 losartan 50 mg tablet 2019 020 [facility], [address] [place] [address], [address], 0 12:33:08 atorvasta tin 40 mg tablet 2019 020 [facility], [address] [place] [address], [address], 0 12:33:06 baclofen 10 mg tablet 2019 020 [facility], [address] [place] [address], [address], 0 12:33:13 Patient TargetsNo targets recorded. Patient InstructionsNo instructions recorded. Reason for Referral Physical Therapist Referral for Pain of left hip joint please call patient to schedule appt. Thank you Referring Physician: Jluian Marin, Family Medicine, Encounter Date: 06/13/2020 Results Created Date Observation Date Name Description Value Unit Range Abnormal Flag Note LastModifiedBy Organization Detail LastModifiedTime 07/17/2007/20/2020 cultu re, urine urine culture,comp rehensive Final report Not Available [facility] ([facility]) [address] [facility], [place], [address], 07/20/2020 07:10:57 07/17/20 20 07/20/2020 cultu re, urine result 1 Commen t No growt h in 36 - 48 hours . Not Available [facility] ([facility]) [address], [place], [address], 07/20/2020 07:10:57 08/14/20 20 08/14/2020 XR, lumbo sacra l spine , 4 or more view No observ ation record ed. [facility] [address] [place], [address], 08/28/2020 12:11:05 10/06/20 20 10/06/2020 trans -thor acic echoc ardio gram (TTE) (PROC ) No observ ation record ed. [facility] [address], [place], [address], 10/13/2020 11:18:48 10/09/20 20 10/09/2020 PFT, compl ete No observ ation record ed. [facility] [address], [place], [address], 10/13/2020 11:18:52 01/03/20 21 01/02/2021 DEXA, axial skele ton No observ ation record ed. [facility] [address] [place], [address], 01/31/2021 09:59:10 01/03/20 21 01/02/2021 MAMMO , scree ron, bilat eral No observ ation record ed. [facility] [address] [place], [address], 01/31/2021 09:59:05 Result Notes None recorded. Problems Name Problem SNOMED Code Status Onset Date Resolution Date Notes Provider Name and Address Organization Details Recorded Time Pain of right shoulder joint [id number] 9100 Active 2016 Edyane Marin PA-C Attn: Estevan g,[address], [place], [address], [facility] 7 10:25:27 Administrat ion of influenza vaccine Active 2016 Julian Marin PA-C Attn: Accountin g,[address] [facility], [place], [address], [place] [facility] 7 10:27:11 Screening for malignant neoplasm of colon Active 2016 Julian Marin PA-C Attn: Accountin g,[address] [facility], [place], [address], [place] [facility] 7 10:40:34 Upper respiratory infection 47857269 Active 2017 Julian Marin PA-C Attn: Accountin g,[address] [facility], [place], [address], [place] [facility] 8 10:08:55 Hyperlipide claude 55959606 Active Julian Marin PA-C Attn: Accountin g,[address] [facility], [place], [address], [place] [facility] 6 15:35:37 Hypertensiv e disorder 49415798 Active Julian Marin PA-C Attn: Accountin g,[address] [facility], [place], [address], [place] [facility] 6 15:35:37 Obesity 507863435 Active Julian Marin PA-C Attn: Accountin g,[address] [facility], [place], [address], [place] [facility] 6 15:35:37 Chronic obstructive pulmonary disease 09140281 Active Julian Marin PA-C Attn: Accountin g,[address] [facility] [address], [place], [address], [place] [facility] 6 15:35:37 Irritable bowel syndrome 65372970 Active Julian Marin PA-C Attn: Accountin g,[address] [facility] [address], [place], [address], [place] [facility] 6 15:35:37 Insomnia 772808101 Active Julian Marin PA-C Attn: Accountin g,[address] [facility], [place], [address], [place] [facility] 6 15:35:37 Osteoarthri tis of knee 193104425 Active Julian Marin PA-C Attn: Estevan heller,[address] [facility] [address], [place], [address], [place] [facility] 6 10:00:49 Vitamin D deficiency 19697281 Active Julian Marin PA-C Attn: Estevan heller,[address] [facility] [address], [place], [address], [place] [facility] 6 15:35:37 Pain of left hip joint 2943333490531 00 Active 2017 Julian Marin PA-C Attn: Estevan heller,[address] [facility] [address], [place], [address], [place] [facility] 8 10:35:03 Injury of left hand 6714182162554 9108 Active 2017 Julian Marin PA-C Attn: Estevan heller,[address] [facility] [address], [place], [address], [place] [facility] 8 11:24:43 Pain of left shoulder joint 8135579723821 9109 Active 2018 Julian Marin PA-C Attn: Estevan heller,[address] [facility] [address], [place], [address], [place] [facility] 9 11:27:12 Supraspinat us tear 066911047 Active 2018 Julian Marin PA-C Attn: Estevan heller,[address] [facility] [address], [place], [address], [place] [facility] 9 23:30:58 Serum vitamin B12 borderline low 636560213 Active 2018 Julian Marin PA-C Attn: Estevan heller,[address] [facility] [address] [address], [place], [address], [place] [facility] 9 11:19:29 Chronic idiopathic constipatio n 73594799 Active 2019 Julian Marin PA-C Attn: Accountin g,[address] [facility] [address], [place], [address], [place] [facility] 0 12:21:25 Low back pain 438816448 Active 2019 Julian Marin PA-C Attn: Accountin g,[address] [facility] [address], [place], [address], [place] [facility] 0 17:38:42 Scoliosis of lumbar spine 417571190 Active 2019 Julian Marin PA-C Attn: Accountin g,[address] [facility] [address], [place], [address], [place] [facility] 0 18:52:49 Sinusitis 72009714 Active Julian Marin PA-C Attn: Accountin g,[address] [facility] [address], [place], [address] [place] [address] 2, [place] [facility] 5 16:38:43 Gastroesoph ageal reflux disease 080611412 Active Julian Marin PA-C Attn: Accountin g,[address] [facility] [address], [place], [address] [place] [address], [place] [facility] 6 15:35:37 Shoulder strain 154609313 Active Julian Marin PA-C Attn: Accountin g,[address] [facility], [place], [address] [place] [address] 2, [place] [facility] 6 09:57:24 Frontal headache 687853546 Active Julian Marin PA-C Attn: Accountin g,[address] [facility] [address] [address], [place], [address], [place] [facility] 6 10:01:03 Anxiety 04368174 Active Julian Marin PA-C Attn: Accountin g,[address] [facility] [address], [place], [address], [place] [facility] 6 15:35:37 Otitis media 99180351 Active Julian Marin PA-C Attn: Accountin g,[address], [place], [address], [facility] 6 15:35:37 Problem Notes None recorded. Procedures Surgical History Date Name Laterality Status Provider Name and Address Organization Details Recorded Time 10/27/19 16 Most Recent Mammogram completed Janessa aHtch [place] [facility] 05/04/2018 11:16:42 04/04/20 14 Gastric bypass for obesity completed Janessa Hatch [place] [facility] 05/04/2018 11:07:34 06/21/20 13 Knee Surgery completed Janessa Hatch [place] [facility] 05/04/2018 11:07:59 10/27/19 11 Breast Surgery completed Janessa Hatch MA [facility] 05/04/2018 11:08:28 10/27/18 88 Total hysterectomy completed Janessa Hatch MA [facility] 05/04/2018 11:07:16 Imaging Results Imaging Date Name Status LastModified by Organization Details LastModified Time 08/14/2020 XR, lumbosacral spine, 4 or more view completed [facility] [address] [place], [address], 08/28/2020 12:11:05 10/06/2020 trans-thoracic echocardiogram (TTE) (PROC) completed [facility] [address], [place], [address], 10/13/2020 11:18:48 10/09/2020 PFT, complete completed [facility] [address], [place], [address], 10/13/2020 11:18:52 01/02/2021 DEXA, axial skeleton completed [facility] [address] [place], [address], 01/31/2021 09:59:10 01/02/2021 MAMMO, screening, bilateral completed [facility] [address] [place], [address], 01/31/2021 09:59:05 Procedure Notes None recorded. Medical Equipment None Reported. Allergies No known drug allergies Medications Name Sig Start Date Stop Date Status Note LastModified by Organization Details LastModified Time multivita min tablet Take 1 tablet every day by oral route. 2017 active Not Available Not Available Not Avai lable losartan 50 mg tablet TAKE 1 TABLET DAILY active Not Available Not Available No t Available cyclobenz aprine 10 mg tablet TAKE 1 TABLET BY MOUTH ONCE DAILY AT BEDTIME FOR 30 DAYS active Not Available Not Available No t Available amoxicill in 500 mg capsule 02/27 completed Not Available Not Available Not Available atorvasta tin 40 mg tablet TAKE 1 TABLET DAILY active Not Available Not Available No t Available promethaz ine-DM 6.25 mg-15 mg/5 mL oral syrup Take 5 mL every 6 hours by oral route as needed for 10 days. 07/15 completed Not Available Not Available Not Available trazodone 50 mg tablet Take 1 tablet every day by oral route at bedtime for 30 days. 05/04 completed Not Available Not Available Not Available azithromy leatha 250 mg tablet TAKE 2 TABLETS (500 MG) BY ORAL ROUTE ONCE DAILY FOR 1 DAY THEN 1 TABLET (250 MG) BY ORAL ROUTE ONCE DAILY FOR 4 DAYS 07/15 completed Not Available Not Available Not Available ibuprofen 800 mg tablet Take 1 tablet 3 times a day by oral route with meals for 30 days. 02/27 completed makes her stomach hurt Not Available Not Available Not Available prednison e 20 mg tablet Take 2 tablets twice a day by oral route for 2 days. 10/13 completed Not Available Not Available Not Available acetamino phen 300 mg-codein e 30 mg tablet 02/27 completed Not Available Not Available Not Available ciproflox acin 500 mg tablet Take 1 tablet every 12 hours by oral route for 10 days. 10/13 completed Not Available Not Available Not Available aspirin 81 mg tablet,de layed release Take 1 tablet every day by oral route. 05/04 completed Not Available Not Available Not Available tramadol 50 mg tablet TAKE 1 TABLET BY MOUTH TWICE DAILY FOR 30 DAYS active Not Available Not Available No t Available amoxicill in 500 mg tablet Take 2 tablets every 12 hours by oral route for 10 days. 02/27 completed Not Available Not Available Not Available Depo-Medr ol 80 mg/mL suspensio n for injection 02/27 completed Not Available Not Available Not Available baclofen 10 mg tablet Take 1 tablet 3 times a day by oral route as needed for 30 days. active Not Available Not Available No t Available triamcino lone acetonide 40 mg/mL suspensio n for injection Take 40 mg by injectio n route. 07/15 completed Administ ered by [employer] document ed by TRINA RMA Not Available Not Available Not Available hydrocodo ne 7.5 mg-acetam inophen 325 mg tablet TAKE 1 TABLET BY MOUTH TWICE DAILY NEEDED FOR PAIN FOR 30 DAYS active Not Available Not Available No t Available ranitidin e 150 mg tablet TAKE 1 TABLET TWICE A DAY 30 MINUTES BEFORE MEALS active Not Available Not Available No t Available docusate sodium 100 mg capsule Take 1 capsule twice a day by oral route with meals for 30 days. 2019 active Not Available Not Available Not Avai lable naproxen 500 mg tablet Take 1 tablet twice a day by oral route with meals for 30 days. active Not Available Not Available No t Available hydroxyzi ne pamoate 25 mg capsule Take 1 capsule 3 times a day by oral route as needed for 30 days. 02/27 completed Not Available Not Available Not Available Zetia 10 mg tablet TAKE 1 TABLET DAILY 02/27 completed Not Available Not Available Not Available Vitamin D3 25 mcg (1,000 unit) tablet Take 2 tablets every day by oral route. 02/27 completed Not Available Not Available Not Available Premarin 0.625 mg/gram vaginal cream Insert 0.5 applicat orsful twice a week by vaginal route. active Not Available Not Available No t Available diclofena c 1 % topical gel APPLY 2 GRAM TO THE AFFECTED AREA(S) BY TOPICAL ROUTE 4 TIMES PER DAY active Not Available Not Available No t Available Calcium with Vitamin D 600 mg-10 mcg (400 unit) tablet Take 1 tablet twice a day by oral route. 2017 active Not Available Not Available Not Avai lable Naprelan CR 500 mg tab,exten ded release 24 hr mphase Take 1 tablet twice a day by oral route. 02/27 completed Not Available Not Available Not Available B12 1 tasb po qd 02/27 completed Not Available Not Available Not Available Suprep Bowel Prep Kit 17.5 gram-3.13 gram-1.6 gram oral solution active Not Available Not Available Not Available Myrbetriq 25 mg tablet,ex tended release Take 1 tablet every day by oral route. 2017 active Not Available Not Available Not Avai labjuany Linzess 145 mcg capsule take one capsule every day by oral route for 30 days active Not Available Not Available No t Available Pennsaid 20 mg/gram/a ctuation (2 %) topical soln in metered-d ose pump APPLY 2 PUMPS (40 MG) TO BACK BY TOPICAL ROUTE 2 TIMES PER DAY 2019 active Not Available Not Available Not Avai lable Vitals Date Recorded Body height Provider Name an d Address Organization Details Last Updated DateTime 06/13/2020 153.67 cm Olivia De La Cr [email or web address], [facility] 06/13/2020 11:02:16 Date Recorded Body height Provider Name an d Address Organization Details Last Updated DateTime 07/14/2020 153.67 cm Olivia De La Cr u, [facility] 07/14/2020 11:33:21 Date Recorded Body height Provider Name an d Address Organization Details Last Updated DateTime 08/14/2020 153.67 cm Olivia De La Cr , [facility] 08/14/2020 09:55:23 Date Recorded Body height Provider Name an d Address Organization Details Last Updated DateTime 10/13/2020 153.67 cm Amanda Victor LPN [facility] 2019 10:52:01 Social History Question Answer Notes LastModified by Organizat ion Details LastModified Time Tobacco Smoking Status Current Every Day Smoker ADDI Bains, [facility] 05/19/2018 10:25:51 Do You Have An Advance Directive? No Information not available 11/23/2014 What Is Your Level Of Alcohol Consumption? Occasional Information not available 11/23/2014 Are You Blind Or Do You Have Difficulty Seeing? No Information not available 11/23/2014 Is Blood Transfusion Acceptable In An Emergency? Yes [email or web address] Information not available 05/04/2018 What Is Your Level Of Caffeine Consumption? Heavy Information not available 11/23/2014 How Much Tobacco Do You Chew? None Information not available 11/23/2014 Are You Currently Employed? No [email or web address] Information not available 05/04/2018 Are You Deaf Or Do You Have Serious Difficulty Hearing? No Information not available 11/23/2014 What Type Of Diet Are You Following? REGULAR Information not available 11/23/2014 Which Illicit Or Recreational Drugs Have You Used? 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 No Information not available 11/23/2014 Hard Of Hearing Or Deaf In One Or Both Ears? No Information not available 11/23/2014 Legally Blind In One Or Both Eyes? No Information not available 11/23/2014 Live Alone Or With Others? With Others [email or web address] Information not available 05/04/2018 Marital Status Informatio n not available 11/23/2014 What Was The Date Of Your Most Recent Tobacco Screening? 11/24/2019 Information not available 11/24/2019 How Many Children Do You Have? 1 [email or web address] Information not available 05/04/2018 Performs Monthly Self-breast Exam? Yes Information not available 11/23/2014 Seat Belts Used Routinely Yes Information not available 11/23/2014 Are You Sexually Active? No [email or web address] Information not available 05/04/2018 Smoke Alarm In Home Yes Information not available 11/23/2014 At What Age Did You Start Smoking Tobacco? 9 Information not available 11/23/2014 How Much Tobacco Do You Smoke? 0.5 PPD 1/2 To 1 PPD [email or web address] Information not available 05/19/2018 General Stress Level High Information not available 11/23/2014 Do You Use Sunscreen Routinely? Yes Information not available 11/23/2014 On What Date Was Tobacco Cessation Counseling Provided? 06/13/2020 Information not available 06/13/2020 Sex: Unknown Functional Status Question Answer Note LastModified by Organizat ion Details LastModified Time Do you have difficulty walking or climbing stairs? Yes knees Information not available 11/23/2014 Do you have difficulty doing errands alone? No Information not available 11/23/2014 Do you have difficulty dressing or bathing? No Information not available 11/23/2014 What is your exercise level? Occasional Information not available 11/23/2014 Mental Status Question Answer Note LastModified by Organization D etails LastModified Time Do you have difficulty concentrating, remembering or making decisions? No Information no t available 11/23/2014 Family History Relationship Description Onset Age of this Age Resolved Age Notes LastModified by Organization Details LastModified Time Mother Diabetes mellitus Not available 2014 16:23:23 Mother Hypercholest erolemia Not available 2014 16:23:23 Mother Hypertensive disorder Not available 2014 16:23:23 Mother Family history of malignant neoplasm of thyroid [email or web address] Not available 05/04 11:05:42 Father Heart disease Not available 2014 16:23:23 Sister Diabetes mellitus Not available 2014 16:23:23 Sister Malignant tumor of cervix 52 52 [email or web address] Not available 05/04 11:04:40 Medical History Condition Response Other N High Blood Pressure Y Breast Cancer N Thyroid Problems N Kidney or Bladder Problems Y Depression N Blood Clots N GI Problems Y Acne N Breast Problem Y Eating Disorder N Anemia N Anesthesia Complications N Headaches/Migraines N Ovarian Cancer N Diabetes N Anxiety Disorder N Muscle, Joint, or Bone Problems Y Blood Transfusions Y Seizures/Epilepsy N Polyps N Infertility N Acid Reflux (GERD) Y Cancer N Stroke Y Asthma Y Endometriosis N High Cholesterol Y Hepatitis N Liver Disease N Heart Disease N Pre-Eclampsia N Osteoporosis N Gynecological History Statement/Question Response Sexually Active? N Menses Monthly N STIs/STDs N HPV Vaccine N Sexual Problems? N Current Control Method Menopause Most Recent Mammogram 10/27/2015 Age at First Child 22 LMP Unknown Desired Control Method N/A Obstetrics History GPAL:G 1 P 1 0 0 0 Type Value Multiple Births 0 Full Term 1 Induced 0 Spontaneous 0 Premature 0 Living 0 Ectopics 0 Total 1 Immunizations Vaccine Type Date Status Note Provider Nam e and Address Organization Details Recorded Time COVID-19, mRNA, LNP-S, PF, 100 mcg/0.5mL dose or 50 mcg/0.25mL dose 1 completed Duarte Pitt null, [place] - [facility] 05/01/2021 16:56:32 Influenza, split virus, quadrivalent, PF 6 completed Not Available [facility] 11/13/2019 02:32:34 Influenza, split virus, quadrivalent, preservative 7 completed Not Available [facility] 11/13/2019 02:44:19 Influenza, split virus, quadrivalent, PF 8 completed Not Available [facility] 11/13/2019 02:36:24 Influenza, split virus, quadrivalent, preservative 9 completed Not Available [facility] 11/13/2019 02:51:08 Influenza, split virus, quadrivalent, preservative 0 completed Olivia Lyles MA null, [facility] 08/14/2020 11:58:45 Influenza, split virus, quadrivalent, PF 4 completed Not Available [facility] 11/27/2019 02:11:35 Influenza, split virus, quadrivalent, preservative 5 completed Not Available [facility] 11/13/2019 02:43:45 Past Encounters Encounter ID Performer Location Encounter Start Date Encounter Closed Date Diagnosis/Indication Diagnosis SNOMED-CT Code Diagnosis ICD10 Code Diagnosis Note [id number] [facility] (Adult Med) [address] [place] [id number] 11/23/2014 10:27:08 11/23/2014 11:45:35 Hyperlipidemia 80592070 Hypertensive disorder 51680294 Obesity 928226200 Chronic ob structive pulmonary disease 30115057 Irritable bowel syndrome 64633366 Insomnia 657864476 Osteoarthr itis of knee 931275152 Vitamin D deficiency 39224397 [id number] [facility] (Adult Med) [address] [place] [id number] 12/23/2014 10:21:26 12/23/2014 17:43:07 Chronic obstructive pulmonary disease 06375643 Hyperlipidemia 52330767 Hypertensive disorder 51991710 Insomnia 895663533 Irritable bowel syndrome 47616048 Obesity 916353013 Osteoarthr itis of knee 174100875 Vitamin D deficiency 77834313 [id number] [facility] (Adult Med) [address] [place] [id number] 01/20/2015 15:08:18 01/20/2015 16:46:42 Irritable bowel syndrome 52560055 Obesity 461283457 Hypertensive disorder 59322773 Osteoarthr itis of knee 966876481 Chronic ob structive pulmonary disease 27892395 Hyperlipidemia 47164194 Insomnia 221303720 Vitamin D deficiency 28883087 Sinusitis 54330950 [id number] [facility]her[facility] (Adult Med) [address] [place] [id number] 11/15/2015 09:34:11 11/15/2015 10:32:04 Chronic obstructive pulmonary disease 84383079 J44.9 Gastroesop hageal reflux disease 232426137 K21.9 Hyperlipidemia 10921128 E78.5 Hypertensive disorder 38 631486 I10 Insomnia 906916327 G47.0 0 Irritable bowel syndrome 81692409 K58.9 Vitamin D deficiency 347 24718 E55.9 Screening mammography 24 368243 Z12.31 [id number] JOHN Mukher[facility] (Adult Med) [address] [place] [id number] 03/15/2016 09:15:00 03/15/2016 15:15:46 Chronic obstructive pulmonary disease 72527202 J44.9 Gastroesop hageal reflux disease 092459195 K21.9 Hyperlipidemia 16566169 E78.5 Hypertensive disorder 38 321414 I10 Insomnia 207142953 G47.0 0 Irritable bowel syndrome 84025774 K58.9 Obesity 569078314 E66.9 Osteoarthr itis of knee 143966064 M17.9 Vitamin D deficiency 347 [address]754 E55.9 Diabetes m ellitus screening 819413497 Z13.1 [id number] JOHN Mukherjee (Adult Med) [address] [place] [id number] 05/14/2016 09:33:35 05/14/2016 10:10:36 Shoulder strain 894096649 S46.912A 3 months; overuse , mowing 4 lawns , housework several places .... Chronic ob structive pulmonary disease 34058929 J44.9 Gastroesop hageal reflux disease 100744849 K21.9 Hyperlipidemia 99522391 E78.5 Hypertensive disorder 38 734485 I10 Insomnia 334659774 G47.0 0 Irritable bowel syndrome 95080670 K58.9 Obesity 320451790 E66.9 Vitamin D deficiency 347 50691 E55.9 [id number] JOHN Mukherjee (Adult Med) [address] [place] [address] 0 07/16/2016 09:14:16 07/17/2016 12:00:58 Chronic obstructive pulmonary disease 95148611 J44.9 Gastroesop hageal reflux disease 192451830 K21.9 Hyperlipidemia 68794576 E78.5 Insomnia 758131397 G47.0 0 Irritable bowel syndrome 48958223 K58.9 Obesity 330485286 E66.9 Vitamin D deficiency 347 67803 E55.9 Frontal headache 1916824 05 R51 Anxiety 31320672 F41.9 Screening for malignant neoplasm of colon 179963546 Z12.11 [id number] JOHN Mukherjee (Adult Med) [address] [place] [address] 0 08/05/2016 14:22:18 08/05/2016 15:38:28 Otitis media 08602568 H66.92 Anxiety 38849832 F41.9 Chronic ob structive pulmonary disease 69894823 J44.9 Gastroesop hageal reflux disease 022951520 K21.9 Hyperlipidemia 11989196 E78.5 Hypertensive disorder 38 681788 I10 Insomnia 184984916 G47.0 0 Irritable bowel syndrome 34511536 K58.9 Obesity 542191420 E66.9 Vitamin D deficiency 347 76937 E55.9 Screening for malignant neoplasm of colon 979245240 Z12.11 [id number] ADDI Baca (Adult Med) [address] [place] [address] 87563-834 0 08/19/2016 09:52:14 08/21/2016 16:31:45 Administration of influenza vaccine 56160889 Z23 [id number] JOHN Mukherjee (Adult Med) [address] [place] [address] 18517-652 0 10/08/2017 09:30:29 10/08/2017 10:47:24 Pain of right shoulder joint 2175398693 6817749 M25.511 Administra tion of influenza vaccine 93173469 Z23 Chronic ob structive pulmonary disease 77307368 J44.9 Gastroesop hageal reflux disease 939629569 K21.9 Vitamin D deficiency 347 87528 E55.9 Hyperlipidemia 25961200 E78.5 Obesity 506739738 E66.9 Hypertensive disorder 38 513100 I10 Shoulder strain 69107814 4 S46.912A 3 months; overuse , mowing 4 lawns , housework several places .... Screening for malignant neoplasm of colon 111911150 Z12.11 [id number] JOHN Mukherjee (Adult Med) [address] [place] [address] 25884-821 0 11/19/2017 09:46:06 11/19/2017 10:17:09 Upper respiratory infection 03335114 J06.9 Hypertensive disorder 38 500899 I10 Hyperlipidemia 22318256 E78.5 Vitamin D deficiency 347 17666 E55.9 Gastroesop hageal reflux disease 196587027 K21.9 Chronic ob structive pulmonary disease 65290736 J44.9 Obesity 846925095 E66.9 Screening for malignant neoplasm of colon 929591669 Z12.11 Insomnia 169647672 G47.0 0 [id number] JONH Mukherjee (Adult Med) [address] [place] [address] 51097-542 0 02/27/2018 10:02:00 03/02/2018 11:04:32 Pain of left hip joint 3149402568 40748 M25.552 Osteoarthr itis of knee 159593883 M17.9 Gastroesop hageal reflux disease 669013116 K21.9 Vitamin D deficiency 347 45145 E55.9 Hypertensive disorder 38 074510 I10 Hyperlipidemia 52341178 E78.5 Chronic ob structive pulmonary disease 26304217 J44.9 Insomnia 306423946 G47.0 0 Pain of ri ght shoulder joint 5696098629 5413099 M25.818 [id number] Aguilar Garzon (MOLDER) [address] [place] [address] 75932-746 0 05/04/2018 10:28:35 05/04/2018 16:03:01 Gynecologic examination 17977462 Z01.419 Z11.51 Screening mammography 24 208741 Z12.31 Atrophic vaginitis 46874 000 N95.2 Screening for osteoporosis 810230711 Z13.820 Bladder mu scle dysfunction - overactive 906652697 N32.81 Postmenopausal state 764 13830 Z78.0 [id number] JOHN Mukherjee (Adult Med) [address] [place] [address] 53903-848 0 05/19/2018 09:42:32 05/19/2018 10:47:42 Pain of right shoulder joint 8799090081 3972996 M25.511 Screening for malignant neoplasm of colon 997750053 Z12.11 Chronic ob structive pulmonary disease 51110818 J44.9 Insomnia 612766044 G47.0 0 Gastroesop hageal reflux disease 383501815 K21.9 Vitamin D deficiency 347 71986 E55.9 Hypertensive disorder 38 983518 I10 Hyperlipidemia 93001814 E78.5 [id number] JOHN Mukherjee (Adult Med) [address] [place] [address] 40288-482 0 07/29/2018 09:56:55 07/30/2018 15:52:28 Pain of right shoulder joint 8659325493 3397882 M25.511 Gastroesop hageal reflux disease 115914968 K21.9 Injury of left hand 1179 611774 5105151 S69.92XA Administra tion of influenza vaccine 43448158 Z23 [id number] JOHN Mukherjee (Adult Med) [address] [place] [address] 99007-803 0 11/23/2018 10:34:26 11/24/2018 09:21:59 Pain of right shoulder joint 1890543562 7204955 M25.511 Pain of le ft shoulder joint 3255247689 5803669 M25.512 Upper resp iratory infection 01602186 J06.9 Chronic ob structive pulmonary disease 62353395 J44.9 Insomnia 205992419 G47.0 0 Gastroesop hageal reflux disease 165371126 K21.9 Vitamin D deficiency 347 97328 E55.9 Hyperlipidemia 67635700 E78.5 Hypertensive disorder 38 407257 I10 [id number] JOHN Mukherjee (Adult Med) [address] [place] [address] 0 01/07/2019 10:12:26 01/08/2019 09:05:24 Pain of left shoulder joint 8703339347 5591637 M25.512 Osteoarthr itis of knee 429142028 M17.9 Injury of left hand 1179 712450 6702856 S69.92XA Supraspinatus tear 31332 6004 M75.110 right ..... shoulder.. .. (as well as left ) Irritable bowel syndrome 97498262 K58.9 Chronic ob structive pulmonary disease 36655418 J44.9 Gastroesop hageal reflux disease 588509049 K21.9 Insomnia 895742016 G47.0 0 Vitamin D deficiency 347 31850 E55.9 Hyperlipidemia 65194635 E78.5 Anxiety 43859197 F41.9 [id number] JOHN Mukherjee (Adult Med) [address] [place] [address] 0 07/15/2019 10:33:24 07/16/2019 09:04:31 Supraspinatus tear 833445510 M75.110 right ..... shoulder.. .. (as well as left ) Pain of ri ght shoulder joint 1375454877 3132307 M25.511 Hyperlipidemia 52699057 E78.5 Vitamin D deficiency 347 84034 E55.9 Serum rm min B12 borderline low 953562534 R79.89 Chronic ob structive pulmonary disease 18871479 J44.9 Insomnia 946816218 G47.0 0 Gastroesop hageal reflux disease 453353102 K21.9 [id number] JOHN Mukherjee (Adult Med) [address] [place] [address] 0 09/08/2019 09:33:29 09/09/2019 11:01:21 Administration of influenza vaccine 33833813 Z23 Hyperlipidemia 03075349 E78.5 Hypertensive disorder 38 297867 I10 Chronic ob structive pulmonary disease 03606634 J44.9 Patient refuses to stop smoking at this time Irregular heart beat 361 733310 R00.8 Vitamin D deficiency 347 50118 E55.9 Serum rm min B12 borderline low 124183583 R79.89 Osteoarthr itis of knee 368864734 M17.9 Irritable bowel syndrome 99742939 K58.9 Insomnia 783367697 G47.0 0 Gastroesop hageal reflux disease 049164883 K21.9 Anxiety 68325007 F41.9 [id number] JOHN Mukherjee (Adult Med) [address] [place] [address] 91796-439 0 11/24/2019 11:41:45 11/25/2019 11:34:12 Chronic idiopathic constipation 47553152 K59.04 Chronic ob structive pulmonary disease 66898333 J44.9 Patient refuses to stop smoking at this time Gastroesop hageal reflux disease 963853217 K21.9 Hyperlipidemia 87116392 E78.5 Insomnia 053526866 G47.0 0 Vitamin D deficiency 347 43318 E55.9 [id number] JOHN Mukherjee (Adult Med) [address] [place] [address] 52952-181 0 06/13/2020 08:17:12 06/13/2020 11:48:02 Gastroesophageal reflux disease 038218085 K21.9 Hyperlipidemia 39277585 E78.5 Hypertensive disorder 38 453048 I10 Vitamin D deficiency 347 50543 E55.9 Serum rm min B12 borderline low 452713384 R79.89 Osteoarthr itis of knee 948182488 M17.9 Pain of ri ght shoulder joint 4274329997 1110994 M25.511 Pain of le ft hip joint 7137905095 40479 M25.552 Low back pain 698809421 M54.5 [id number] JOHN Mukherjee (Adult Med) [address] [place] [address] 98976-333 0 07/14/2020 08:11:36 07/14/2020 15:38:48 Gastroesophageal reflux disease 353002562 K21.9 Hyperlipidemia 90422815 E78.5 Hypertensive disorder 38 681687 I10 Insomnia 554503343 G47.0 0 Irritable bowel syndrome 20671855 K58.9 Low back pain 286530927 M54.5 Osteoarthr itis of knee 641583811 M17.9 Pain of le ft shoulder joint 4536349410 3274959 M25.512 Pain of ri ght shoulder joint 9523115212 1174235 M25.511 Serum rm min B12 borderline low 081160555 R79.89 Supraspinatus tear 10106 6004 M75.110 right ..... shoulder.. .. (as well as left ) Vitamin D deficiency 347 69117 E55.9 Sinusitis 68247340 J32.9 [id number] JOHN Mukherjee (Adult Med) [address] [place] [address] 03869-859 0 08/14/2020 08:25:45 08/14/2020 12:38:46 Low back pain 459356702 M54.5 Osteoarthr itis of knee 104751141 M17.9 Supraspinatus tear 04609 6004 M75.110 right ..... shoulder.. .. (as well as left ) Administra tion of influenza vaccine 65898026 Z23 Anxiety 54526112 F41.9 Chronic id iopathic constipation 90615844 K59.04 Chronic ob structive pulmonary disease 04257309 J44.9 Patient refuses to stop smoking at this time Gastroesop hageal reflux disease 630902984 K21.9 Hyperlipidemia 95776330 E78.5 Hypertensive disorder 38 636323 I10 Insomnia 094109831 G47.0 0 Irritable bowel syndrome 14287441 K58.9 Serum rm min B12 borderline low 388455303 R79.89 Vitamin D deficiency 347 97482 E55.9 [id number] JOHN Mukherjee (Adult Med) [address] [place] [address] 51001-208 0 09/14/2020 08:30:12 09/14/2020 13:30:42 Low back pain 221522426 M54.5 Discussed heat/ice alternatin g Osteoarthr itis of knee 654911329 M17.9 [id number] JOHN Mukherjee (Adult Med) [address] [place] [address] 96000-362 0 10/13/2020 08:21:29 10/13/2020 12:39:12 Low back pain 836325633 M54.5 Discussed heat/ice alternatin g Anxiety 04556679 F41.9 Chronic ob structive pulmonary disease 17486884 J44.9 Patient refuses to stop smoking at this time Hyperlipidemia 33097652 E78.5 Hypertensive disorder 38 108609 I10 Insomnia 740203733 G47.0 0 Irritable bowel syndrome 59965552 K58.9 Pain of le ft hip joint 9661534696 52573 M25.552 Pain of le ft shoulder joint 3988251962 9789297 M25.512 Pain of ri ght shoulder joint 0081560056 2608846 M25.511 Scoliosis of lumbar spine 510900735 M41.86 Serum rm min B12 borderline low 958870373 R79.89 Vitamin D deficiency 347 29635 E55.9 Supraspinatus tear 84402 6004 M75.110 right ..... shoulder.. .. (as well as left ) Health Concerns Section Related Observation LastModified by Organization Detai ls LastModified Time None Recorded Concern Status LastModified by Organization Details LastModified Time None Recorded Advance Directives Directive N: Payers Encounter Date Sequence Insurance Name Policy Number Policy Sparks Covered Member ID Sparks Member ID Guarantor Name 06/13/2020 1 [employer] () Gayathri Kim [id number] Gayathri Kim 07/14/2020 1 [employer] () Gayathri Kim [id number] Gayathri Kim 08/14/2020 1 [employer] () Gayathri Kim [id number] Gayathri Kim 09/14/2020 1 [employer] () Gayathri Kim [id number] Gayathri Kim 10/13/2020 1 [employer] () Gayathri Kim [id number] Gayathridarnell Sherwoodallison Notes Date Note Type Note Provider Name and Address Organization Details Recorded Time 06/13/2020 text/html lower left back , left knee too; no trauma Julian Marin PA-C Attn: [address] [facility], [place], [address], [place] [facility] 06/14/2020 17:40:30 07/14/2020 text/html low back ... lef t ... Julian Marin PA-C Attn: [address] [facility] [facility], [place], [address], [place] [facility] 07/17/2020 21:53:53 08/14/2020 text/html back really hurt s ...., no trauma Julian Marin PA-C Attn: [address] [place], [address], [place] [facility] 08/15/2020 18:15:58 09/14/2020 text/html Patient is a 64 year old female who presents via phone for regular checkup.Recent lumbar xray showed multilevel degenerative changes and mild scoliosis; she reports that the naproxen and muscle relaxers are helping to manage the pain. Julian Marin PA-C Attn: [address] [place], [address], [place] [facility] 09/14/2020 16:59:00 10/13/2020 text/html back pain continues ... Julian Marin PA-C Attn: [address] [place], [address], [place] [facility] 10/18/2020 08:33:49 OBGyn Episode Ob Episode Information Episode Created Date Number of Fetuses Patient Bloodtype Patient rh Status Prepregnancy Weight lbs Domestic Partner Domestic Partner Phone Father Name Yam Curer Status 05/04/20 18 1 CLOSED Fetus Data First Name Last Name Admitted to NICU Weight (g) Sex Living Outcome Pediatric Complications Fetus ID Race Codes Race Delivery Type 3883.65 4704 M Full Term 01166 Vaginal Mo Calculation Initial Mo Date Initial Exam Date Initial Exam Provider Initial Ultrasound Date Last Menstrual Period Date Ultra Sound Weeks Gestation 0 Eighteen To Twenty Week Mo Update Ultra Sound Date Fundal Height At Umbil Quickening Date Ultra Sound Latest Weeks Gestation Final Mo Confirmed By Final Mo Confirmed Date Final Mo Date Ultra Sound Latest Days Gestation 0 0 Menstrual History Last Menstrual Date Menses Monthly On Bcp Conception Prior Menses Frequency Hcg Plus Date Menarche Onset Age Delivery Information Delivery Date Delivery Type Labor Anesthesia Weeks Gestation Incision Type Labor Labor Length Hrs Delivered By Post Complications Tubal Sterilization Discharge Date Comments 8 Local Discharge Information Feeding Method Contraceptive Method Maternal HG B and HCT Levels
--- OUTSIDE RECORDS SUMMARY | 2025-02-06 07:56 | XMS_ITS | Continuity of Care Document ---
Author Organization [facility] Address [address] [place] [address] Phone Care Team Providers Care Program Project Manager Name Role Phone Kristei CABELLO, Maryann Unavailable Unavailable Medications Medication Instructions [...] Diagnoses Date Provider Providers Copied on [facility]counter [facility] [address], [place], [place], [address], [place] tel:[phone] [facility] No Information Kristie Wolf. [address] [place], [place], [address] , [place]. tel:[phone] Family History Family Member Type Diagnosis Age At Onset No Information Payers Payer name Insurance type Covered alliance party ID Authoriza tion(s) No Information Social [...]
--- OUTSIDE RECORDS SUMMARY | 2025-02-06 07:56 | XMS_ITS | Clinical Summary ---
Author Organization [facility] Address [address], [address] [place] [address] Phone Care Team Providers Care Hospital Staff Pharmacist Name Role Phone Rene Osborne Primary Care Provider [phone] Allergies Active Allergy Reactions Criticality Noted Date Comments Aspirin Unknown 01/30/2023 Cant take, had gastric bypass surgery Ibuprofen Other (see Comments) 01/30/2023 Makes stomach hurt Medications losartan (COZAAR) 50 MG Tablet Take 50 mg by mouth daily. Active atorvastatin (LIPITOR) 40 MG Tablet Take 40 mg by mouth daily. Active Cyanocobalamin (Vitamin B 12) 500 MCG Tablet Take 1,000 mg by mouth. Active Vitamin D3 1000 UNIT Tablet Take 25 mcg by mouth daily. Active Calcium-Magnesiu m-Vitamin D (CALCIUM MAGNESIUM PO) Take by mouth. Active Multivitamin-Min erals Tablet Take 1 Tablet by mouth daily. Active Multiple Vitamins-Mineral s (COMPLETE MULTIVITAMIN/MIN ERAL PO) Take by mouth. Active Misc Natural Products (LUTEIN 20 PO) Take by mouth. 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 01/30/2023 Family History Medical History Relation Name Comments Cancer Brother 1 Heart Attack Brother 2 Heart Attack Father Stroke Maternal Grandfather Stroke Maternal Grandmother Heart Attack Mother Cancer Sister Relation Name Status Comments Brother 1 Brother 2 Father Maternal Grandfather Maternal Grandmother Mother Sister Social History Tobacco Use Types Packs/Day Years Used Date Smoking Tobacco: Every Day Cigarettes Smokeless Tobacco: Never Tobacco Cessation:Ready to Q uit: Not Asked; Counseling Given: Not Answered Alcohol Use Standard Drinks/Week Comments Yes 6 (1 standard drink = 0.6 oz pur e alcohol) Comments Unknown Sex and Gender Information Value Date Recorded Sex Assigned at Not on file Legal Sex Female 10:12 AM CDT Gender Identity Not on file Sexual Orientation Not on file Last Filed Vital Signs Vital Sign Reading Time Taken Comments Blood Pressure 130/78 02/27/2023 9:06 AM CDT Pulse 52 02/27/2023 9:06 AM CDT Temperature 36.4 C (97.5 F) 02/27/2023 9:06 AM CDT Respiratory Rate 18 02/27/2023 9:06 AM CDT Oxygen Saturation 100% 02/27/2023 9:06 AM CDT Inhaled Oxygen Concentration - - Weight 58.8 kg (129 lb 9.6 oz) 02/27/2023 9:06 A M CDT Height 156.2 cm (5' 1.5 ) 02/27/2023 9:06 AM CDT Body Mass Index 24.09 02/27/2023 9:06 AM CDT Plan of Treatment Health Maintenance Due Date Last Done Comments DEXA Bone Density 1955 Hepatitis C Virus (HCV) Screening 1955 TdaP Immunization 1955 Colonoscopy 2001 Colorectal Cancer Screening 2001 Cologuard 2006 Immunochemical Fecal Occult Blood 2006 Mammogram 2006 Pneumococcal Immunization (50+ years) (2 of 2 - PCV) 01/09/2022 01/09/2021 Influenza Immunization (#1) 2024 07/20/2014 SARS-COV-2 Immunization ( season) 2024 05/14/2022, 09/27/2021, 02/19/2021, Additional history exists Respiratory Syncytial Virus (RSV) Immunization (Adult) (1 - 1-dose 75+ series) 2031 Zoster Immunization Completed 04/05/2021, Hepatitis B Immunization Aged Out No longer eligible based on patient's age to complete this topic Meningococcal Immunization (ACWY) Aged Out No longer eligible based on patient's age to complete this topic Rotavirus Immunization Aged Out No lo nger eligible based on patient's age to complete this topic Insurance MEDICARE C [facility] [address] [facility] Care Teams Hospital Staff Pharmacist Relationship Specialty Start Date End Date Rene Osborne [address] [place] [address] PCP - General Family Medicine 01/17/23
--- OUTSIDE RECORDS SUMMARY | 2025-02-06 07:57 | XMS_ITS | Continuity of Care Document ---
Author Organization [facility] Address [address] [place] [address] [place] [address] Phone Care Team Providers Care Retail General Manager Name Role Phone Rene Osborne MD Unavailable Unavailable Allergies, Adverse Reactions, Alerts Substance Reaction Status Criticality No Known Allergies Active No Inform ation Medications Medication Instructions Dosage Effective Dates (start - stop) Status Comments Lipitor 40 mg tablet take 1 tablet by or al route every day 40 MG - Active losartan 50 mg tablet take 1 tablet by o ral route every day 50 MG - Active Procedures Procedure Date PREV VISIT, EST, 65 & OVER OFFICE/OUTPATIENT VISIT, EST PREV VISIT, EST, 65 & OVER OFFICE/OUTPATIENT VISIT, EST OFFICE/OUTPATIENT VISIT, EST OFFICE/OUTPATIENT VISIT, EST OFFICE/OUTPATIENT VISIT, EST PREV VISIT, EST, 65 & OVER OFFICE/OUTPATIENT VISIT, EST OFFICE/OUTPATIENT VISIT, EST PREV VISIT, EST, 65 & OVER OFFICE/OUTPATIENT VISIT, EST OFFICE/OUTPATIENT VISIT, EST OFFICE/OUTPATIENT VISIT, EST OFFICE/OUTPATIENT VISIT, EST OFFICE/OUTPATIENT VISIT, EST OFFICE/OUTPATIENT VISIT, EST OFFICE/OUTPATIENT VISIT, EST OFFICE/OUTPATIENT VISIT, NEW Advance Directives Directive Yes / No Effective Date File Name No Information Encounters Encounter Description Practice Location Reason(s) For Visit Diagnoses Date Provider Providers Copied on Encounter PREV VISIT, EST, 65 & OVER [facility], [address], [place], [place], [address], [place] [phone] [facility] physical (chief complaint) Encounter for general adult medical examination without abnormal findings Jan-0 5 Dylon López. [address], [place], [place], [address] , [place]. tel:[phone] [facility], [address], [place], [place], [address], [place] tel:[phone] [facility] No Information 4 yDlon López. [address], [place], [place], [address] , [place]. tel:[phone] OFFICE/OUTPA TIENT VISIT, [facility], [address], [place], [place], [address], [place] [phone] [facility] iron deficiency1 (chief complaint)H LP (chief complaint)g lucose1 (chief complaint)h and pain1 (chief complaint) Mixed hyperlipidemiaIron deficiency anemiaHyperglycemi aPrimary osteoarthritis, right handEncntr screen mammogram for malignant neoplasm of breast 4 Dylon López. [address], [place], [place], [address] , [place]. tel:[phone] PREV VISIT, EST, 65 & OVER [facility], [address], [place], [place], [address], [place] tel:[phone] [facility] physical (chief complaint) Encounter for general adult medical exam w abnormal findingsEssential (primary) hypertensionIron deficiency anemiaBariatric surgery statusMixed hyperlipidemia 4 Dylon Irwin [address], [place], [place], [address] , [place]. tel:[phone] OFFICE/OUTPA TIENT VISIT, [facility], [address], [place], [place], [address], [place] tel:[phone] [facility] iron defieicny1 (chief complaint)k nee pain1 (chief complaint)H TN (chief complaint) Iron deficiency anemiaEssential (primary) hypertensionOsteoa rthritis of knee, unspecified 3 Dylon Irwin [address], [place], [place], [address] , [place]. tel:[phone] OFFICE/OUTPA TIENT VISIT, [facility], [address], [place], [place], [address], [place] tel:[phone] [facility] iron deficiency anemia1 (chief complaint) Iron deficiency anemiaFatigueBaria tric surgery status Dec- 3 Dylon Irwin [address], [place], [place], [address] , [place]. [phone] OFFICE/OUTPA TIENT VISIT, [facility], [address] [place], [address], [place] tel:[phone] [facility] anemia1 (chief complaint)f atigue1 (chief complaint)H TN (chief complaint) Iron deficiency anemiaFatigueEssen tial (primary) hypertension Dec- 3 Dylon Irwin [address], [place], [place], [address] , [place]. [phone] PREV VISIT, EST, 65 & OVER [facility], [address] [place], [address], [place] tel:[phone] [facility] physical (chief complaint) Encounter for general adult medical exam w abnormal findingsMixed hyperlipidemiaEsse ntial (primary) hypertensionAbnorm al weight lossAnemia 3 Dylon Irwin [address], [place], [place], [address] , [place]. tel:[phone] OFFICE/OUTPA TIENT VISIT, [facility], [address], [place], [place], [address], [place] tel:[phone] [facility] HTN (chief complaint)H LP (chief complaint)w eight loss1 (chief complaint) Mixed hyperlipidemiaEsse ntial (primary) hypertensionAbnorm al weight lossTobacco use Dec-0 2 Dylon Irwin [address], [place], [place], [address] , [place]. tel:[phone] PREV VISIT, EST, 65 & OVER [facility], [address], [place], [place], [address], [place] [phone] [facility] physical (chief complaint) Encounter for general adult medical exam w abnormal findingsAneurysm of aortaEssential (primary) hypertensionMixed hyperlipidemiaPain in left shoulder Jan- 2 Dylon Irwin [address], [place], [place], [address] , [place]. tel:[phone] OFFICE/OUTPA TIENT VISIT, [facility], [address], [place], [place], [address], [place] tel:[phone] [facility] hip pain1 (chief complaint)a ortic aneurysm1 (chief complaint)H TN (chief complaint) Essential (primary) hypertensionBilate ral primary osteoarthritis of hipAneurysm of aortaPresence of left artificial hip joint 1 Dylon Irwin [address], [place], [place], [address] , [place]. tel:[phone] OFFICE/OUTPA TIENT VISIT, [facility], [address] [place] [place], [address], [place] tel:[phone] [facility] hip pain1 (chief complaint)H TN (chief complaint)H LP (chief complaint) Essential (primary) hypertensionHyperl ipidemiaChronic pain syndromeEncounter for other preprocedural examination 1 Dylon Irwin [address], [place], [place], [address] , [place]. tel:[phone] OFFICE/OUTPA TIENT VISIT, [facility], [address], [place], [place], [address], [place] tel:[phone] [facility] constipatio n1 (chief complaint)h ip pain1 (chief complaint) Bilateral primary osteoarthritis of hipConstipation 1 Dylon Irwin [address], [place], [place], [address] , [place]. tel:[phone] OFFICE/OUTPA TIENT VISIT, [facility], [address], [place], [place], [address], [place] tel:[phone] [facility] HTN (chief complaint)H LP (chief complaint)b ack pain1 (chief complaint)c onstipation (chief complaint) ConstipationEssent ial (primary) hypertensionHyperl ipidemiaChronic pain syndrome 1 Dylon Irwin [address], [place], [place], [address] , [place]. [phone] OFFICE/OUTPA TIENT VISIT, [facility], [address], [place], [place], [address], [place] tel:[phone] [facility] constipatio n1 (chief complaint)p ain1 (chief complaint)a orta1 (chief complaint) Aneurysm of aortaCoronary artery disease of [place] coronary artery without angina pectorisChronic pain syndromeConstipati on 1 Dylon Irwin [address], [place], [place], [address] , [place]. tel:[phone] OFFICE/OUTPA TIENT VISIT, [facility], [address], [place], [place], [address], [place] tel:[phone] [facility] GERD1 (chief complaint)H TN (chief complaint)c hronic pain1 (chief complaint) Lumbago with sciatica, left sideGERD w/o esophagitisEssenti al (primary) hypertensionTobacc o useEncounter for screening for malignant neoplasm of colon 1 Dylon Irwin [address], [place], [place], [address] , [place]. tel:[phone] OFFICE/OUTPA TIENT VISIT, [facility], [address] [place], [place], [address], tel:[phone] [facility] back pain1 (chief complaint)G ERD1 (chief complaint)H LP (chief complaint)H TN (chief complaint) Essential (primary) hypertensionHyperl ipidemiaGERD w/o esophagitisLumbago with sciatica, left sideTobacco useEncounter for oth screening for malignant neoplasm of breastEncounter for screening for osteoporosis 1 Dylon López. [address] [place], [address] , [place]. tel:[phone] Family History Family Member Type Diagnosis Age At Onset Brother Problem Hypertension Mother Problem Coronary artery disease Mother Problem Diabetes mellitus Father Problem unknown Brother Problem Coronary artery disease Brother Problem Diabetes mellitus Payers Payer name Insurance type Covered alliance party ID Authoriza karenanika(s) [facility] [id number] Social History Type Description Quantity Date Captured Comments Alcohol Use Details beer & wine Caffeine Use Details Unknown Tobacco Use Status Heavy cigarette smok er (20-39 cigs/day) Smoking Status Heavy tobacco smoker Sex Female Vital Signs Date / Time: Height Weight BMI Pulse Rate Blood Pressure Temperature Respiratory Rate Body Surface Area Head Circumference BMI percentile Pulse Ox Inhaled Ox 9:35 AM 61.50 in 128.80 lbs 23.9 4 kg/m eter (2) 86 /min 130/76 mm[Hg] 97.9 F 16 /min Chief Complaint And Reason For Visit From encounter dated '01/27/2025 09:30'. physical (chief complaint). Description: Pt needs annual physical pt has HTN and HLP Pt takes losartan and lipitor Pt denies any myalgia or chest pain or headache. Pt overall feels fine Pt denies anynew complaints Plan Of Treatment Date Type Action Status Referral Ordered: MG COLEMAN -[facility]opathic [facility] Osteopathic Physicians : Orthopaedic Surgery (related to Primary osteoarthritis, right hand) ordered Referral Referred To: MG COLEMAN [address] [place] [address], [id number] [phone] Ordered: Referrals: Allopathic & Osteopathic Physicians : Orthopaedic Surgery. MG COLEMAN. Evaluate and treat ordered Referral Ordered: Hematology (related to Iron deficiency anemia) ordered Referral Ordered: Referrals: Hematology. Evaluate and treat ordered Referral Ordered: OPERATIVE UPPER GI ENDOSCOPY ordered Referral Ordered: COLONOSCOPY AND BIOPSY ordered Referral Referred To: Slim Joaquin [address] [place] [address], [phone] Ordered: Referrals: Slim Joaquin. Evaluate and treat ordered Referral Ordered: AP PELVIS AND BILATERAL HIPS XRAY ordered Referral Ordered: Pain Medicine (related to Lumbago with sciatica, left side) ordered Referral Ordered: Physical Therapy (related to Lumbago with sciatica, left side) ordered Referral Ordered: Referrals: Pain Medicine. Evaluate and treat ordered Referral Referred To: Physical Therapy Ordered: Referrals: Physical Therapy. Evaluate and treat ordered Referral Ordered: MRI LUMBAR SPINE W/O DYE ordered Referral Ordered: MAMMOGRAM, SCREENING ordered Referral Ordered: CT THORAX W/O DYE ordered Referral Ordered: DXA BONE DENSITY, AXIAL ordered History Of Present Illness Encounter Date Complaint History Of Prese nt Illness physical Pt needs annual physical pt has HTN and HLP Pt takes losartan and lipitor Pt denies any myalgia or chest pain or headache. Pt overall feels fine Pt denies any new complaints iron deficiency1 Pt has history of iron deficiency anemia Pt had lab done which was all normal Pt denies any bleeding HLP Pt has HLP Pt ta kes lipitor and her lipid profile is ok Pt denies any myalgia glucose1 Pt has high gluc ose. Pt denies any polyuria polydipsia . hand pain1 Pt c/o right chappell d pain with pain and some swelling knuckles Pt denies any paresthesia. Pt denies any injury Pt has above symptoms for several months physical Pt needs annual physical. Pt has HTN, Pt takes losartan. Pt has been out of med for several days and her bp is high Pt denies any chest pain or headache . Pt has HLP Pt takes lipitor and lipid profile is ok. Pt denies any myalgia Pt has aortic aneurysm and she is being monitored by cardiology. Pt denies any chest pain., sob. Pt has mild iron deficiency anemia s/p iron infusion Pt denies any bleeding Pt denies any other complaints iron defieicny1 Pt has iron defi ciency anemia due to previous gastric bypass surgery. Pt saw hematology and she received iron infusion and his iron and hemoglobin were ok recently by hematology per patient. He received iron infusion and lab work afterward two months ago by hematology. Pt feels more energy. She denies any chest pain or sob or dizziness knee pain1 Pt has severe os teoarthritis both knee and she needs bilateral knee replacement and she needs medical clearance. pt had left hip replaced recently and she tolerated the procedure well. HTN Pt has HTN, pt t akes losartan and her bp is stable Pt denies any chest pain or palpitation or sob Pt sees cardiology with negative cardiac work up iron deficiency anemia1 Pt has c hronic iron deficiency anemia ,Pt had negative EGD and colonoscopy Pt denies any blood loss. Pt denies any GERD or abdomina pain, Pt does feel chronic fatigue, Pt denies any sob anemia1 Pt has mild norm ocytic anemia Pt has low ferritin ,Her iron is ok Pt denies any bleeding Pt had hysterectomy, negative UA and colonoscopy. Pt denies any abdominal pain or GERD. Pt denies any weight loss fatigue1 Pt has mild fati karen. Pt denies any dizziness, chest pain, ,etc . pt denies any snoring. HTN Pt has HTn Pt ta kes losartan and her bp is ok physical Pt needs annual physical. Pt has HTN, Pt takes losartan and her bp is stable. Pt has HLP Pt takes lipitor and lipid profile is ok. Pt denies any myalgia Pt has aortic aneurysm and she is being monitored by cardiology. Pt denies any chest pain., sob. Pt is mildly anemic pt denies any bleeding .Pt denies any other complaints weight loss1 Pt has been losi ng weight unintentionally. Pt has been exercise more since she had hip surgery with less pain. Pt denies any nausea, vomiting, appetite loss, early satiety, change of bowel, blood in stool, etc. Pt has been more active. her appetite is good Pt denies any abd pain HTN Pt has HTN Pt ta kes losartan and her bp is stable HLP Pt has HLP Pt ta kes lipitor. Pt denies any myalgia Pt has not done lab yet physical Pt needs annual physical. Pt has HTN, Pt takes losartan and her bp is stable. Pt has HLP Pt takes lipitor. Pt denies any myalgia Pt has aortic aneurysm and she is being monitored by cardiology. Pt denies any chest pain., sob. Pt will have left shoulder rotator cuff surgery soon and she needs medical clearance. hip pain1 Pt is s/p left h ip replacement last week by Dr. joaquin. Pt supp[facility] but it needs physical therapy insurance referral. Pt called ortho and ortho told her that she has to get a referral from PCP. Pt takes lyrica for left sciatica and left leg paresthesia. Pt denies any leg swelling. Pt denies any calf pain Pt denies any saddle area paresthesia. Pt denies any hip redness or warmth. Pt denies any swelling Pt is ambulating with walker aortic aneurysm1 Pt has stable a scending aortic aneurysm. Pt denies any chest pain Pt is being monitored by cardiology HTN Pt has HTN. Pt t akes losartan and her bp is borderline high today hip pain1 Pt has severe bi lateral hip pain due to osteoporosis. pt will have left total hip replacement later this week and she needs surgical clearance. Pt denies any history of adverse reaction to anesthesia or any surgery. Pt has left hip pain with left sciatica and leg paresthesia Pt takes lyrica and norco PRN for pain. Pt denies any chest pain or sob. HTN Pt has HTN Pt ta kes losartan and her bp is stable .Pt needs refill. pt has normal UO HLP Pt has HLP .Pt t akcecilio lipitor .pt denies any myalgia. Her lab was ok early this year. constipation1 Pt took miralax and constipation resolved. Pt denies any GI bleeding or change or abd pain hip pain1 Pt c/o severe le ft hip pain for several years, which is getting worse Pt also has chronic low back pain with radiation to left hip area. Pt denies any injury Pt denies any fracture. Pt denies any hip redness or swelling or deformity. X ray showed moderate to severe left hip osteoarthritis and moderate right hip osteoarthritis. constipation Additional infor mation: Pt has chronic constipation Pt states that pharmacy did not give her the miralax last month Pt denies any GI bleeding . HTN Pt has HTN Pt ta kes losartan and her bp is stable. HLP Pt has HLP Pt ta kes lipitor Pt denies any myalgia. Her lipid profile is ok back pain1 Pt has chronic l ow back pain with radiation to left hip and inguinal area. Pt has DDD Pt takes lyrica and norco PRn for pain Pt just had 3 injections by pain management and helped slightly Pt denies any injury Pt denies any paresthesia or loss of bowel or bladder control. constipation Pt has chronic c onstipation pt states that she has BM on average twice per month?? Pt had colonoscopy two years ago which was normal. Pt told me she had constipation issue prior to colonoscopy. pt tried fiber and linzess but did not work. Pt denies any blood in stool or nausea or abd pain. pain1 Pt has chronic l ow back pain with left sciatica to left groin area without any leg paresthesia or any loss of bladder or bowel control Pt is very uncomfortable all day. Pt had MRi done which showed DDD with mild foraminal stenosis without significant spinal canal compromise. Pt takes norco PRn for pain. Pt states that lyrica helps somewhat .pt has not heard from pain management aorta1 pt had LDCT whic h showed aneurysmal ascending aorta and also CAD and PAD .Pt denies any chest pain Pt denies any claudication. pt sees Dr. Gentile from [facility]. Pt told me nobody ever told her she has aorta aneurysm Pt told me she had negative cardiac echo and stress test recently. Pt also had lab done recently chronic pain1 Pt has chronic l ow back pain with left sciatica to left groin area without any leg paresthesia or any loss of bladder or bowel control Pt is very uncomfortable all day. Pt had MRi done which showed DDD with mild foraminal stenosis without significant spinal canal compromise. Pt takes norco PRn for pain. GERD Pt stopped zanta c and she has not noticed any abd pain or GERD. HTN Pt takes losarta n and her bp is stable. Pt denies any dry cough GERD Pt has been taki ng ranitidine for several years. Pt denies any GERD. Pt not sure why she was given zantac. back pain1 Pt has chronic l ow back pain with radiation to left groin area for over 20 years Pt denies any back injury Pt feels 8/10 sharp pain all the time .pt denies any loss of bladder or bowel control .Pt failed ultram, baclofen and naproxen Pt takes norco BID PRN for pain. pt had x ray done which showed DDD Pt never had MRI. Pt failed PT also . Pt denies any leg numbness or tingling or weakness HLP Pt has HLP Pt ta kes lipitor. Pt denies any myalgia HTN Pt has HTn pt ta kes losartan and her bp is borderline high today pt denies any chest pain or headache Instructions Date Instruction Additional Infor mation No Information Assessments Type Assessment Date assessment Encounter for genera l adult medical examination without abnormal findings Mental Status Date Cognitive Assessment Orientation - [place] ed to time, place, person, situation.
== END 2025-02-06 07:54 | disposition home or self-care (01) ==
PROVIDERS: PCP Emergency Medicine; Visit Provider Emergency Medicine
DX: Z12.2 Encounter for screening for malignant neoplasm of respiratory organs (principal); Z87.891 Personal history of nicotine dependence; R91.1 Solitary pulmonary nodule
CPT/HCPCS: 71250

== ENCOUNTER 2025-07-06 07:55 | Outpatient (CLI) | payer MEDICARE, OTHER, SELFPAY ==
--- OUTSIDE RECORDS SUMMARY | 2010-08-23 05:15 | XMS_ITS | Continuity of Care Document ---
Author Organization 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, [address] [place] [address] [address], [place], [place], [id number], [place] tel:[phone] [facility] No Information 8-201 0 [facility]. [address] [place] [address] , [address], [place], [address], [place]. tel:[phone] [facility], [address] [place] [address] [address], [place], [place], [id number], [place] tel:[phone] [facility] No Information 6-200 8 [facility] . [address] [facility] [address], [address], [place], [place], [id number], [place]. tel:[phone] Referring Provider: Lesly Conway, [address] [place] [address] [address], [place], [address]. tel:[phone] sulting Provider: Claudio Jones, [address] [place] [address], [place], [address]. tel:[phone] [facility], [address] [place] [address] [address], [place], [place], [id number], [place] tel:[phone] [facility] No Information [address] [facility] , [address], [place], [address], [place]. tel:[phone] Family History Family Member Type Diagnosis Age At Onset No Information Payers Payer name Insurance type Covered libertarian ID Authoriza tion(s) No Information Social History Type Description Quantity Date Captured Comments Sex Female Smoking Status No Information Chief Complaint And Reason For Visit No Information Reason For Referral Reason For Referral No Information History Of Present Illness Encounter Date Complaint History Of Prese nt Illness No Information Functional Status Date Functional Assessmen t No Information Instructions Date Instruction Additional Infor mation No Information Assessments Type Assessment Date No Information Patient Care Teams Name Effective Dates (start - stop) Status Members No Information
--- OUTSIDE RECORDS SUMMARY | 2018-06-24 05:39 | XMS_ITS | Continuity of Care Document ---
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 Name Role Phone Kristie CABELLO, Maryann Unavailable Unavailable Medications Medication Instructions Dosage Effective Dates (start - stop) Status Comments Linzess 145 mcg capsule take 1 capsule by oral route every day on an empty stomach at least 30 minutes before 1st meal of the day 145 MCG - Active Advance Directives Directive Yes / No Effective Date File Name No Information Encounters Encounter Description Practice Location Reason(s) For Visit Diagnoses Date Provider [facility]iders [facility] [address] [place], [place], [address], [place] tel:[phone] [facility] No Information Kristie Wolf. [address] [place], [place], [id number] , [place]. tel:[phone] Family History Family Member Type Diagnosis Age At Onset No Information Payers Payer name Insurance type Covered republican ID Authoriza tion(s) No Information Social History [...]
--- OUTSIDE RECORDS SUMMARY | 2025-03-21 10:23 | XMS_ITS | Continuity of Care Document ---
Author Organization [facility] Address [address] [place] [address] [place] [address] Phone Care Team Providers Care Dementia Program Director Name Role Phone Rene Osborne MD Unavailable [...] Diagnoses Date Provider Providers Copied on Encounter [facility], [address], [place], [place], [address], [place] [phone] [facility] No Information 5 Dylon Irwin [address], [place], [place], [address] , [place]. tel:[phone] PREV VISIT, EST, 65 & OVER [facility], [address], [place], [place], [address], [place] tel:[phone] [facility] physical (chief complaint) Encounter for general adult medical examination without abnormal findings Jan-0 5 Dylon López. [address], [place], [place], [address] , [place]. tel:[phone] OFFICE/OUTPA TIENT VISIT, EST [facility], [address], [place], [place], [address], [place] [phone] [facility] iron deficiency1 (chief complaint)H LP (chief complaint)g lucose1 (chief complaint)h and pain1 (chief complaint) Mixed hyperlipidemiaIron deficiency anemiaHyperglycemi aPrimary osteoarthritis, right handEncntr screen mammogram for malignant neoplasm of breast 4 Dylon Irwin [address], [place], [place], [address] , [place]. tel:[phone] PREV VISIT, EST, 65 & OVER [facility], [address], [place], [place], [address], [place] tel:[phone] [facility] physical (chief complaint) Encounter for general adult medical exam w abnormal findingsEssential (primary) hypertensionIron deficiency anemiaBariatric surgery statusMixed hyperlipidemia 4 Dylon Irwin [address], [place], [place], [address] , [place]. tel:[phone] OFFICE/OUTPA TIENT VISIT, EST [facility], [address], [place], [place], [address], [place] tel:[phone] [facility] iron defieicny1 (chief complaint)k nee pain1 (chief complaint)H TN (chief complaint) Iron deficiency anemiaEssential (primary) hypertensionOsteoa rthritis of knee, unspecified 3 Dylon Irwin [address], [place], [place], [address] , [place]. tel:[phone] OFFICE/OUTPA TIENT VISIT, [facility], [address], [place], [place], [address], [place] tel:[phone] [facility] iron deficiency anemia1 (chief complaint) Iron deficiency anemiaFatigueBaria tric surgery status Dec- 3 Dylon Irwin [address], [place], [place], [address] , [place]. [phone] OFFICE/OUTPA TIENT VISIT, [facility], [address] [place], [address], [place] tel:[phone] [facility] anemia1 (chief complaint)f atigue1 (chief complaint)H TN (chief complaint) Iron deficiency anemiaFatigueEssen tial (primary) hypertension Dec- 3 Dylon Irwin [address], [place], [place], [address] , [place]. [phone] PREV VISIT, EST, 65 & OVER [facility], [address] [place], [address], [place] tel:[phone] [facility] physical (chief complaint) Encounter for general adult medical exam w abnormal findingsMixed hyperlipidemiaEsse ntial (primary) hypertensionAbnorm al weight lossAnemia 3 Dylon Irwin [address], [place], [place], [address] , [place]. tel:[phone] OFFICE/OUTPA TIENT VISIT, [facility], [address], [place], [place], [address], [place] tel:[phone] [facility] HTN (chief complaint)H LP (chief complaint)w eight loss1 (chief complaint) Mixed hyperlipidemiaEsse ntial (primary) hypertensionAbnorm al weight lossTobacco use Dec-0 2 Dylon Irwin [address], [place], [place], [address] , [place]. tel:[phone] PREV VISIT, EST, 65 & OVER [facility], [address], [place], [place], [address], [place] [phone] [facility] physical (chief complaint) Encounter for general adult medical exam w abnormal findingsAneurysm of aortaEssential (primary) hypertensionMixed hyperlipidemiaPain in left shoulder Jan- 2 Dylon Irwin [address], [place], [place], [address] , [place]. tel:[phone] OFFICE/OUTPA TIENT VISIT, [facility], [address], [place], [place], [address], [place] tel:[phone] [facility] hip pain1 (chief complaint)a ortic aneurysm1 (chief complaint)H TN (chief complaint) Essential (primary) hypertensionBilate ral primary osteoarthritis of hipAneurysm of aortaPresence of left artificial hip joint 1 Dylon Irwin [address], [place], [place], [address] , [place]. tel:[phone] OFFICE/OUTPA TIENT VISIT, [facility], [address] [place], [address], [place] tel:[phone] [facility] hip pain1 (chief complaint)H TN (chief complaint)H LP (chief complaint) Essential (primary) hypertensionHyperl ipidemiaChronic pain syndromeEncounter for other preprocedural examination 1 Dylon Iwrin [address], [place], [place], [address] , [place]. tel:[phone] OFFICE/OUTPA TIENT VISIT, [facility], [address], [place], [place], [address], [place] tel:[phone] [facility] constipatio n1 (chief complaint)h ip pain1 (chief complaint) Bilateral primary osteoarthritis of hipConstipation 1 Dylon Irwin [address], [place], [place], [address] , [place]. tel:[phone] OFFICE/OUTPA TIENT VISIT, [facility], [address], [place], [place], [address], [place] tel:[phone] [facility] HTN (chief complaint)H LP (chief complaint)b ack pain1 (chief complaint)c onstipation (chief complaint) ConstipationEssent ial (primary) hypertensionHyperl ipidemiaChronic pain syndrome 1 Dylon Irwin [address], [place], [place], [address] , [place]. [phone] OFFICE/OUTPA TIENT VISIT, [facility], [address], [place], [place], [address], [place] tel:[phone] [facility] constipatio n1 (chief complaint)p ain1 (chief complaint)a orta1 (chief complaint) Aneurysm of aortaCoronary artery disease of [place] coronary artery without angina pectorisChronic pain syndromeConstipati on 1 Dylon Irwin [address], [place], [place], [address] , [place]. tel:[phone] OFFICE/OUTPA TIENT VISIT, [facility], [address], [place], [place], [address], [place] tel:[phone] [facility] GERD1 (chief complaint)H TN (chief complaint)c hronic pain1 (chief complaint) Lumbago with sciatica, left sideGERD w/o esophagitisEssenti al (primary) hypertensionTobacc o useEncounter for screening for malignant neoplasm of colon 1 Dylon Irwin [address], [place], [place], [address] , [place]. tel:[phone] OFFICE/OUTPA TIENT VISIT, [facility], [address], [place], [place], [address], tel:[phone] [facility] back pain1 (chief complaint)G ERD1 (chief complaint)H LP (chief complaint)H TN (chief complaint) Essential (primary) hypertensionHyperl ipidemiaGERD w/o esophagitisLumbago with sciatica, left sideTobacco useEncounter for oth screening for malignant neoplasm of breastEncounter for screening for osteoporosis 1 Dylon López. [address] [place], [address] , . tel:[phone] Family History Family Member Type Diagnosis Age At Onset Brother Problem Hypertension Mother Problem Coronary artery disease Mother Problem Diabetes mellitus Father Problem unknown Brother Problem Coronary artery disease Brother Problem Diabetes mellitus Payers Payer name Insurance type Covered green party ID Authoriza karenanika(s) [facility] [id number] Social History Type Description Quantity Date Captured Comments Alcohol Use Details Unknown Caffeine Use Details Unknown Tobacco Use Status Smoking Status No Information Sex Female Chief Complaint And Reason For Visit No Information Plan Of Treatment Date Type Action Status Referral Ordered: MG COLEMAN -Allopathic & Osteopathic Physicians : Orthopaedic Surgery (related to Primary osteoarthritis, right hand) ordered Referral Referred To: MG COLEMAN [address], [place], [phone] Ordered: Referrals: Allopathic & Osteopathic Physicians : Orthopaedic Surgery. MG COLEMAN. Evaluate and treat ordered Referral Ordered: Hematology (related to Iron deficiency anemia) ordered Referral Ordered: Referrals: Hematology. Evaluate and treat ordered Referral Ordered: OPERATIVE UPPER GI ENDOSCOPY ordered Referral Ordered: COLONOSCOPY AND BIOPSY ordered Referral Referred To: Slim Joaquin [address] [place] [address], [phone] Ordered: Referrals: Slim Joaquin. Evaluate and treat [...] feels fine Pt denies any new complaints hand pain1 Pt c/o right chappell d pain with pain and some swelling knuckles Pt denies any paresthesia. Pt denies any injury Pt has above symptoms for several months glucose1 Pt has high gluc ose. Pt denies any polyuria polydipsia . HLP Pt has HLP Pt ta kes lipitor and her lipid profile is ok Pt denies any myalgia iron deficiency1 Pt has history of iron deficiency anemia Pt had lab done which was all normal Pt denies any bleeding physical Pt needs annual physical. Pt has [...] bleeding Pt denies any other complaints iron defieicny Pt has iron defi ciency anemia due [...] feel chronic fatigue, Pt denies any sob HTN Pt has HTn Pt ta kes losartan and her bp is ok fatigue1 Pt has mild fati karen. Pt denies any dizziness, chest pain, ,etc . pt denies any snoring. anemia1 Pt has mild norm ocytic anemia Pt has low ferritin ,Her iron is ok Pt denies any bleeding Pt had hysterectomy, negative UA and colonoscopy. Pt denies any abdominal pain or GERD. Pt denies any weight loss physical Pt needs annual physical. Pt has [...] UO HLP Pt has HLP .Pt t akes lipitor .pt denies any myalgia. Her lab was ok early this year. hip pain1 Pt c/o severe le ft hip pain for several years, which is getting worse Pt also has chronic low back pain with radiation to left hip area. Pt denies any injury Pt denies any fracture. Pt denies any hip redness or swelling or deformity. X ray showed moderate to severe left hip osteoarthritis and moderate right hip osteoarthritis. constipation1 Pt took miralax and constipation resolved. Pt denies any GI bleeding or change or abd pain constipation Additional infor mation: Pt has chronic [...] or loss of bowel or bladder control. aorta pt had LDCT whic h showed aneurysmal ascending aorta and also CAD and PAD .Pt denies any chest pain Pt denies any claudication. pt sees Dr. Gentile from [facility]. Pt told me nobody ever told her she has aorta aneurysm Pt told me she had negative cardiac echo and stress test recently. Pt also had lab done recently pain1 Pt has chronic l ow back [...] .pt has not heard from pain management constipation Pt has chronic c onstipation pt states that she has BM on average twice per month?? Pt had colonoscopy two years ago which was normal. Pt told me she had constipation issue prior to colonoscopy. pt tried fiber and linzess but did not work. Pt denies any blood in stool or nausea or abd pain. chronic pain1 Pt has chronic l ow [...] is stable. Pt denies any dry cough HTN Pt has HTn pt ta kes losartan and her bp is borderline high today pt denies any chest pain or headache HLP Pt has HLP Pt ta kes lipitor. Pt denies any myalgia back pain1 Pt has chronic l ow [...] any leg numbness or tingling or weakness GERD1 Pt has been taki ng ranitidine for several years. Pt denies any GERD. Pt not sure why she was given zantac. Instructions Date Instruction Additional Infor denise No Information Assessments Type Assessment Date No Information
--- NOTE | ~2025-07-06 | MM_ITS ---
EXAMINATION: MM screening tone BI w sridevi HISTORY: Screening. Prior history of benign right breast surgery. TECHNIQUE: Craniocaudal and mediolateral oblique 3-D tomosynthesis images were obtained and synthetic 2-D images were generated. CAD analysis was submitted and interpreted. COMPARISON: Comparison to multiple prior studies sequentially, with oldest reviewed study dated 10/10/2009. BREAST PARENCHYMAL COMPOSITION: There are scattered areas of fibroglandular density. FINDINGS: There is no evidence of suspicious mass, calcification, or architectural distortion to suggest malignancy in either breast. Post surgical changes in the right breast are unchanged. IMPRESSION: 1. No mammographic evidence of malignancy. 2. Recommend routine screening mammography in one year. BI-RADS Category 2: Benign finding(s). Reviewed, dictated and finalized at location B.
--- OUTSIDE RECORDS SUMMARY | 2025-07-06 08:12 | XMS_ITS | Clinical Summary ---
Author Organization [facility] Address [address] [place] [address] Phone Care Team Providers Care Applique Sewer Name Role Phone Rene Osborne Primary Care Provider [phone] Allergies Active Allergy Reactions Criticality Noted Date [...] A M CDT Height 156.2 cm (5' 1.5) 02/27/2023 9:06 AM CDT Body Mass Index 24.09 02/27/2023 9:06 AM CDT Plan of Treatment Health Maintenance Due Date Last Done Comments DEXA Bone Density 1955 Hepatitis C Virus (HCV) Screening 1955 Mammogram 1955 TdaP Immunization 1955 Cologuard 2001 Colonoscopy 2001 Colorectal Cancer Screening 2001 Immunochemical Fecal Occult Blood 2001 Pneumococcal Immunization (50+ years) (2 of 2 - PCV) 01/09/2022 01/09/2021 SARS-COV-2 Immunization ( season) 2024 05/14/2022, 09/27/2021, 02/19/2021, Additional history exists Influenza Immunization (#1) 2025 07/20/2014 Respiratory Syncytial Virus (RSV) Immunization (Adult) (1 - 1-dose 75+ series) 2031 Zoster Immunization Completed 04/05/2021, Hepatitis B Immunization Aged Out No longer eligible based on patient's age to complete this topic Human Papillomavirus (HPV) Immunization Aged Out No longer eligible based on patient's age to complete this topic Meningococcal Immunization (ACWY) Aged Out No longer eligible based on patient's age to complete this topic Rotavirus Immunization Aged Out No lo nger eligible based on patient's age to complete this topic Insurance MEDICARE C [facility] Care Teams Applique Sewer Relationship Specialty Start Date End Date Rene Osborne [address] [place] [address] PCP - General Family Medicine 01/17/23
== END 2025-07-06 07:56 | disposition home or self-care (01) ==
LOC: ANHFOHIMG 07:57
PROVIDERS: PCP Emergency Medicine; Visit Provider Emergency Medicine
DX: Z12.31 Encounter for screening mammogram for malignant neoplasm of breast (principal)
CPT/HCPCS: 77063; 77067